=== PATIENT | female | born 1950 | race Caucasian/White ===

== ENCOUNTER 2016-10-06 11:10 | Day surgery (SDC) | payer MEDICAID ==
[2016-10-06] MEDS ORDERED: LACTATED RINGERS 1,000 ML IV ONE (11:45)
[2016-10-06] MEDS ORDERED: fentaNYL 100 MCG/2 ML VIAL IVP ONE (11:48)
[2016-10-06] MEDS ORDERED: MIDAZOLAM 2 MG/2 ML VIAL IVP ONE (11:48)
[2016-10-06 12:53] VITALS: BP 110/66
== END 2016-10-06 11:11 | disposition home or self-care (01) ==
LOC: SDS 11:10
PROVIDERS: ATTEND Surgery
PROC: 0DBL8ZX Excision of Transverse Colon, Via Natural or Artificial Opening Endoscopic, Diagnostic (ICD-10-PCS; 2016-10-06)
PROC: 0DBN8ZX Excision of Sigmoid Colon, Via Natural or Artificial Opening Endoscopic, Diagnostic (ICD-10-PCS; 2016-10-06)
PROC: 0DBP8ZX Excision of Rectum, Via Natural or Artificial Opening Endoscopic, Diagnostic (ICD-10-PCS; 2016-10-06)
PROC: 0DBH8ZX Excision of Cecum, Via Natural or Artificial Opening Endoscopic, Diagnostic (ICD-10-PCS; principal; 2016-10-06 12:15)
DX: R14.0 Abdominal distension (gaseous) (principal); R19.4 Change in bowel habit; K64.4 Residual hemorrhoidal skin tags; K57.30 Diverticulosis of large intestine without perforation or abscess without bleeding; K64.8 Other hemorrhoids; Z88.2 Allergy status to sulfonamides; J30.9 Allergic rhinitis, unspecified; F41.9 Anxiety disorder, unspecified; G89.29 Other chronic pain; I10 Essential (primary) hypertension; F17.210 Nicotine dependence, cigarettes, uncomplicated; Z90.49 Acquired absence of other specified parts of digestive tract
CPT/HCPCS: 45380; J7120; 88305

== ENCOUNTER 2017-05-15 09:09 | Emergency (ER) | payer MEDICAID, MEDICARE ==
[2017-05-15 09:41] LABS: BASOPHILS % (AUTO) 0.6 %; EOSINOPHILS # (AUTO) 0.1 10^3/uL (0.0-0.7); EOSINOPHILS % (AUTO) 1.8 %; HGB - HEMOGLOBIN 13.5 g/dL (12.0-16.0); LYMPHOCYTES # (AUTO) 2.1 10^3/uL (1.5-3.5); LYMPHOCYTES % (AUTO) 27.3 %; MEAN CORPUSCULAR HEMOGLOBIN 31.9 pg (27.0-31.0); MEAN CORPUSCULAR HGB CONC 32.9 g/dL (32.0-36.0); MEAN CORPUSCULAR VOLUME 96.9 fL (81.0-99.0); MEAN PLATELET VOLUME 7.5 fL (7.9-10.8); MONOCYTES # (AUTO) 0.5 10^3/uL (0.0-1.0); NEUTROPHILS # (AUTO) 4.8 10^3/uL (1.5-6.6); NEUTROPHILS % (AUTO) 63.3 %; PLT - PLATELET COUNT 260 10^3/uL (130-450); RED BLOOD COUNT 4.22 10^6/uL (4.20-5.40); RED CELL DISTRIBUTION WIDTH 13.4 % (12.0-15.0); WHITE BLOOD COUNT 7.6 x10^3/uL (4.8-10.8)
[2017-05-15 09:50] LABS: ALBUMIN 4.3 g/dL (3.2-5.5); ALBUMIN/GLOBULIN RATIO 1.1 (1.0-2.2); BILIRUBIN,TOTAL 0.5 mg/dL (0.2-1.0); CALCIUM 9.1 mg/dL (8.5-10.3); CREATININE 0.8 mg/dL (0.4-1.0); TOTAL PROTEIN 8.2 g/dL (6.7-8.2)
[2017-05-15] MEDS ORDERED: ACETAMINOPHEN 1,000 MG/100 ML 100 ML IV STA (09:55)
[2017-05-15] MEDS ORDERED: PROMETHAZINE INJ 25 MG in SODIUM CHLORIDE 0.9% 50 ML IV STA (09:56)
--- NOTE | 2017-05-15 09:59 | ED Physician Documentation ---
History of Present Illness - Stated complaint Stated Complaint: GI PX - Chief complaint Chief Complaint: Abd Pain - Additonal information Additional information: hx from pt 67 f pmhx fibromyalgia and psh CS X 2 and bowel resection 2/2 perf last colonoscopy < 1 yr ago showed diverticulosis to ER today with bruning mid abd pain and nausea, no diarrhea, no blood in BM, no urinary sx no fever chills also a frontal BUTT for about a week - no trauma, no vision hearing change, no numbness or weakness, no neck pain, no CO monitor in the house Review of Systems Constitutional: denies: Fever, Chills Eyes: denies: Loss of vision Ears: denies: Loss of hearing Cardiac: denies: Chest pain / pressure Respiratory: reports: Cough (minimal) GI: reports: Abdominal Pain. 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 HEENT: Tonsil/Adenoidectomy - Present Medications Home Medications: Ambulatory Orders Medication Instructions Recorded Confirmed Citalopram [CeleXA] 10 mg ORAL DAILY 03/04/16 05/15/17 Lorazepam [Ativan] 0.5 mg PO Q6-8H PRN 03/04/16 05/15/17 Propranolol [Inderal] 10 mg ORAL BID 03/04/16 05/15/17 Dicyclomine [Bentyl] 10 mg PO Q8H PRN #20 capsule 05/15/17 Hydrocodone/Acetaminophen 1 tab TID 05/15/17 05/15/17 [Hydrocodone-Acetamin 10-325 mg] raNITIdine [Zantac] 150 mg PO BID #60 tablet 05/15/17 - Allergies Allergies/Adverse Reactions: Allergies Allergy/AdvReac Type Severity Reaction Status Date / Time amoxicillin trihydrate * Allergy Intermediate Emesis, Verified 05/15/17 09:27 [From Augmentin] nausea erythromycin base Allergy Intermediate Emesis, Verified 05/15/17 09:27 [Erythromycin Base] nausea morphine Allergy Intermediate Hallucinati Verified 05/15/17 09:27 ons potassium clavulanate * Allergy Intermediate Emesis, Verified 05/15/17 09:27 [From Augmentin] nausea Sulfa (Sulfonamide Allergy Nausea Verified 05/15/17 09:27 Antibiotics) iodine AdvReac Severe Hives Verified 05/15/17 09:27 - Social History Does the pt smoke?: Yes Smoking Status: Current every day smoker Does the pt drink ETOH?: No Does the pt have substance abuse?: No - Immunizations Immunizations are current?: Yes - POLST Patient has POLST: No PD ED PE NORMAL - Vitals Vital signs reviewed: Yes - General General: Alert and oriented X 3 - HEENT HEENT: PERRL (globes soft no TA TTP EOMI) - Neck Neck: Supple, no meningeal sign - Cardiac Cardiac: RRR - Respiratory Respiratory: No respiratory distress, Clear bilaterally - Abdomen Abdomen: Normal bowel sounds, Soft, Other (diffuse TTP s peritioneal TTP) - Derm Derm: Normal color - Neuro Neuro: Alert and oriented X 3 Results - Vitals Vitals: Vital Signs - 24 hr 05/15/17 05/15/17 09:24 11:37 Temperature 36.5 C Heart Rate 84 66 Respiratory 16 18 Rate Blood Pressure 146/89 H 144/76 H O2 Saturation 97 95 Oxygen O2 Source Room air - Labs Labs: Laboratory Tests 05/15/17 05/15/17 05/15/17 09:33 09:33 10:18 WBC 7.6 RBC 4.22 Hgb 13.5 Hct 40.9 MCV 96.9 MCH 31.9 H MCHC 32.9 RDW 13.4 Plt Count 260 MPV 7.5 L Neut # 4.8 Lymph # 2.1 [place] # 0.5 Eos # 0.1 Baso # 0.0 Absolute Nucleated RBC 0.00 Nucleated RBC % 0.0 VBG Total Hgb VBG Oxyhemoglobin VBG Carboxyhemoglobin VBG Methemoglobin Sodium 136 Potassium 3.4 L Chloride 100 L Carbon Dioxide 29 Anion Gap 7.0 BUN 11 Creatinine 0.8 Estimated GFR (MDRD) 72 L Glucose 110 H Calcium 9.1 Total Bilirubin 0.5 AST 23 ALT 20 Alkaline Phosphatase 68 Total Protein 8.2 Albumin 4.3 Globulin 3.9 Albumin/Globulin Ratio 1.1 Lipase 13 L Urine Color YELLOW Urine Clarity CLEAR Urine pH 7.0 Ur Specific [place] 1.010 Urine Protein NEGATIVE Urine Glucose (UA) NEGATIVE Urine Ketones NEGATIVE Urine Occult Blood NEGATIVE Urine Nitrite NEGATIVE Urine Bilirubin NEGATIVE Urine Urobilinogen 0.2 (NORMAL) Ur Leukocyte Esterase NEGATIVE Ur Microscopic Review NOT INDICATED Urine Culture Comments NOT INDICATED 05/15/17 10:25 WBC RBC Hgb Hct MCV MCH MCHC RDW Plt Count MPV Neut # Lymph # [place] # Eos # Baso # Absolute Nucleated RBC Nucleated RBC % VBG Total Hgb 14.5 VBG Oxyhemoglobin 52 L VBG Carboxyhemoglobin 6.7 H VBG Methemoglobin 0.0 Sodium Potassium Chloride Carbon Dioxide Anion Gap BUN Creatinine Estimated GFR (MDRD) Glucose Calcium Total Bilirubin AST ALT Alkaline Phosphatase Total Protein Albumin Globulin Albumin/Globulin Ratio Lipase Urine Color Urine Clarity Urine pH Ur Specific [place] Urine Protein Urine Glucose (UA) Urine Ketones Urine Occult Blood Urine Nitrite Urine Bilirubin Urine Urobilinogen Ur Leukocyte Esterase Ur Microscopic Review Urine Culture Comments - Rads (name of study) CT AP Radiology: See rad report (diverticulosis no itis, no stones, no SBO) PD MEDICAL DECISION MAKING - ED course ED course: pt states pain not relieved with ofirmev not relieved with pepcid and bentyl I explained that all work up was neg and reassuring she states she can't leave until the pain is better and that the only medication she thinks will work is dilaudid I explained that i did not think dilaudid was the correct medication for this case offered toradol nurse states pt left Departure - Departure Disposition: 01 Home, Self Care Clinical Impression: Carbon monoxide exposure Abdominal pain Qualifiers: Abdominal location: generalized Qualified Code(s): R10.84 - Generalized abdominal pain Headache Qualifiers: Headache type: unspecified Headache chronicity pattern: acute headache Intractability: not intractable Qualified Code(s): R51 - Headache Condition: Good Instructions: ED Abdominal Pain Unkn Cause Follow-Up: Castro Haley MD [Primary Care Provider] - Prescriptions: Dicyclomine [Bentyl] 10 mg PO Q8H PRN #20 capsule PRN Reason: stomach cramps raNITIdine [Zantac] 150 mg PO BID #60 tablet Comments: Your carbon monoxide level is slightly elevated - no a dangerous level right now and you don't need to be admitted to the hospital - but it is possible you have carbon monoxide in your house that has been causing your recent headaches - you need to call the fire department and have them come to your house to test for carbon monoxide and you need to get a carbon monoxide sensor before it is safe for you to return home Your lab and CT scan were fine - no bowel perforation or blockage or internal bleeding today, no diverticulitis, no stones, no aneursym etc. I am not sure what is causing the pain for certain - it could be your fibromyalgia as you suspected - but given the reassuring work up I think it is safe for you to go home. I have prescribed some zantac and bentyl to see if that eases the pain Discharge Date/Time: 05/15/17 12:20
--- NOTE | 2017-05-15 10:20 | CT Report ---
EXAM: CT ABDOMEN AND PELVIS EXAM DATE: 05/15/2017 10:08 AM. CLINICAL HISTORY: Abd pain, hx divertic and resection 2/2 perf. COMPARISONS: 12/12/2015. 03/04/2016. TECHNIQUE: Routine helical CT imaging was performed through the abdomen and pelvis. IV contrast: None . Enteric contrast: No. Reconstructions: Coronal and sagittal. In accordance with CT protocol optimization, one or more of the following dose reduction techniques w ere utilized for this exam: automated exposure control, adjustment of mA and/or KV based on patient s ize, or use of iterative reconstructive technique. FINDINGS: Lung Bases: Lung bases are clear. Included portions of the heart are unremarkable. Liver: Unenhanced images of the liver are unremarkable. Gallbladder/Bile Ducts: Unremarkable. Spleen: Normal. Pancreas: Fatty replacement and parenchymal volume loss. No peripancreatic edema. Adrenal Glands: Normal. Kidneys: No nephrolithiasis. No hydronephrosis. No ureteral dilatation or ureteral calculi. Peritoneal Cavity/Bowel: Stomach is mildly distended and unremarkable. No small bowel obstruction. No free air. Tiny fatty umbilical hernia. Surgical clips are seen along the margins of the cecum and ri ght mid abdomen. Diverticuli are seen in the colon as before. No evidence for diverticulitis. No intr a-abdominal fluid collections. The appendix is not visualized. Pelvic Organs: Urinary bladder is unremarkable. No bladder calculi. No adnexal masses or no pelvic fr ee fluid. No pelvic adenopathy. Vasculature: No aneurysms or other significant abnormality. Bones: No acute osseous abnormalities. Grade 1 anterolisthesis of L4 on L5. Mild degenerative changes of the lumbar spine. Mild lumbar facet arthropathy. Other: None. IMPRESSION: 1. Colonic diverticulosis. No diverticulitis. No bowel obstruction. Postsurgical changes along the ri ght mid abdomen, unchanged. 2. No nephrolithiasis. No hydronephrosis. No bladder calculi. 3. Normal unenhanced appearance of the gallbladder. [facility] Referring Provider Line: [phone] SITE ID: [id number]
[2017-05-15 10:23] LABS: BILIRUBIN,URINE NEGATIVE (NEGATIVE); GLUCOSE, URINE (UA) NEGATIVE (NEGATIVE); KETONES,URINE (UA) NEGATIVE (NEGATIVE); LEUKOCYTE ESTERASE, URINE NEGATIVE (NEGATIVE); NITRITE,URINE NEGATIVE (NEGATIVE); OCCULT BLOOD,URINE NEGATIVE (NEGATIVE); PROTEIN,URINE NEGATIVE (NEGATIVE); UROBILINOGEN,URINE 0.2 (NORMAL) E.U./dL (NORMAL)
[2017-05-15 10:25] LABS: CLARITY,URINE CLEAR (CLEAR)
[2017-05-15] MEDS: POTASSIUM CHLORIDE 20 MEQ TABLET PO STA ×2 (11:05→11:14)
[2017-05-15] MEDS ORDERED: DICYCLOMINE 10 MG CAPSULE PO STA (11:08)
[2017-05-15] MEDS ORDERED: FAMOTIDINE 20 MG/50 ML 50 ML IV ONE (11:08)
[2017-05-15 11:40] VITALS: BP 144/76
[2017-05-15] MEDS ORDERED: KETOROLAC 60 MG/2 ML VIAL IVP STA (12:17)
== END 2017-05-15 12:20 | disposition home or self-care (01) ==
LOC: ED 09:09
DX: T58.91XA Toxic effect of carbon monoxide from unspecified source, accidental (unintentional), initial encounter (principal); Y92.019 Unspecified place in single-family (private) house as the place of occurrence of the external cause; R10.84 Generalized abdominal pain; R51 Headache; M79.7 Fibromyalgia; I10 Essential (primary) hypertension; Z90.49 Acquired absence of other specified parts of digestive tract; F17.200 Nicotine dependence, unspecified, uncomplicated
CPT/HCPCS: 36415; 74176; 80053; 81003; 82375; 83690; 85025; 96365; 96367; 96368; 99283; A9270; J0131; J7040; 81001; 87086

== ENCOUNTER 2017-08-11 08:00 | Outpatient (CLI) | payer MEDICARE, OTHER | END 2017-08-11 08:01 | disposition home or self-care (01) | LOC: LAB.R 08:00 | PROVIDERS: ATTEND Family Medicine | DX: R30.0 Dysuria (principal) | CPT/HCPCS: 87086 ==

== ENCOUNTER 2017-11-07 16:34 | Emergency (ER) | payer MEDICARE, OTHER ==
--- NOTE | 2017-11-07 18:40 | ED Physician Documentation ---
PD HPI FEMALE - Stated complaint Stated Complaint: FEMALE - Chief complaint Chief Complaint: UTI - History obtained from History obtained from: Patient - History of Present Illness Timing - onset: Today Timing - duration: Days (1) Timing - details: Abrupt onset, Still present Associated symptoms: Back pain, Dysuria, Urinary frequency. No: Fever, Vaginal discharge, Genital sore/lesion Similar symptoms before: Diagnosis (UTIs) Recently seen: Not recently seen Review of Systems Constitutional: denies: Fever, Chills Nose: denies: Rhinorrhea / runny nose, Congestion Throat: denies: Sore throat Cardiac: denies: Chest pain / pressure, Palpitations Respiratory: denies: Dyspnea, Cough GI: reports: Nausea. denies: Abdominal Pain, Abdominal Swelling, Vomiting : reports: Dysuria, Frequency, Hematuria. 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 HEENT: Tonsil/Adenoidectomy - Present Medications Home Medications: Ambulatory Orders Medication Instructions Recorded Confirmed Citalopram [CeleXA] 10 mg ORAL DAILY 03/04/16 05/15/17 Lorazepam [Ativan] 0.5 mg PO Q6-8H PRN 03/04/16 05/15/17 Propranolol [Inderal] 10 mg ORAL BID 03/04/16 05/15/17 Dicyclomine [Bentyl] 10 mg PO Q8H PRN #20 capsule 05/15/17 Hydrocodone/Acetaminophen 1 tab TID 05/15/17 05/15/17 [Hydrocodone-Acetamin 10-325 mg] raNITIdine [Zantac] 150 mg PO BID #60 tablet 05/15/17 Doxycycline Monohydrate 100 mg PO BID #14 tablet 11/07/17 HYDROcod/ACETAM 5/325 [Lasara 5/325] 1 tab PO Q6H PRN #15 tablet 11/07/17 Naproxen 375 mg PO BID #20 tablet 11/07/17 Phenazopyridine HCl 200 mg PO TID PRN #10 tablet 11/07/17 Amitriptyline [Elavil] 10 mg PO HS #10 tablet 11/09/17 oxyCODONE [Roxicodone] 5 mg PO Q4-6H PRN #20 tablet 11/09/17 - Allergies Allergies/Adverse Reactions: Allergies Allergy/AdvReac Type Severity Reaction Status Date / Time amoxicillin trihydrate * Allergy Intermediate Emesis, Verified 11/09/17 17:45 [From Augmentin] nausea erythromycin base Allergy Intermediate Emesis, Verified 11/09/17 17:45 [Erythromycin Base] nausea morphine Allergy Intermediate Hallucinati Verified 11/09/17 17:45 ons potassium clavulanate * Allergy Intermediate Emesis, Verified 11/09/17 17:45 [From Augmentin] nausea Sulfa (Sulfonamide Allergy Nausea Verified 11/09/17 17:45 Antibiotics) iodine AdvReac Severe Hives Verified 11/09/17 17:45 - Social History Does the pt smoke?: Yes Smoking Status: Current every day smoker Does the pt drink ETOH?: No Does the pt have substance abuse?: No - Immunizations Immunizations are current?: Yes - POLST Patient has POLST: No PD ED PE NORMAL - Vitals Vital signs reviewed: Yes - General General: Alert and oriented X 3, No acute distress, Well developed/nourished - HEENT HEENT: Ears normal, Pharynx benign - Neck Neck: Supple, no meningeal sign, No adenopathy - Cardiac Cardiac: RRR, No murmur - Respiratory Respiratory: Clear bilaterally - Abdomen Abdomen: Normal bowel sounds, Soft, Non tender, Non distended, No organomegaly - Female Female : Deferred - Rectal Rectal: Deferred Results - Vitals Vitals: Oxygen O2 Source Room air - Labs Labs: Laboratory Tests 11/07/17 18:38 Urine Color YELLOW Urine Clarity CLOUDY Urine pH 8.0 H Ur Specific [place] 1.020 Urine Protein NEGATIVE Urine Glucose (UA) NEGATIVE Urine Ketones NEGATIVE Urine Occult Blood NEGATIVE Urine Nitrite NEGATIVE Urine Bilirubin NEGATIVE Urine Urobilinogen 0.2 (NORMAL) Ur Leukocyte Esterase NEGATIVE Urine RBC 0-5 Urine WBC 11-25 H Ur Squamous Epith Cells MANY Squamous H Amorphous Sediment Marked Urine Bacteria Moderate H Ur Microscopic Review INDICATED Urine Culture Comments NOT INDICATED PD MEDICAL DECISION MAKING - ED course Complexity details: reviewed results (UA is marginally positive for UTI, yet her syptoms are very c/w UTI. She does not really want vaginal exam.), considered differential, d/w patient - Sepsis Event Vital Signs: Oxygen O2 Source Room air Departure - Departure Disposition: 01 Home, Self Care Clinical Impression: Dysuria, Cystitis Condition: Stable Record reviewed to determine appropriate education?: Yes Instructions: ED UTI Cystitis Female Follow-Up: Castro Haley MD [Primary Care Provider] - Prescriptions: Doxycycline Monohydrate 100 mg PO BID #14 tablet HYDROcod/ACETAM 5/325 [Lasara 5/325] 1 tab PO Q6H PRN #15 tablet PRN Reason: Pain Naproxen 375 mg PO BID #20 tablet Phenazopyridine HCl 200 mg PO TID PRN #10 tablet PRN Reason: Pain Comments: Your urine test does look like a an infection. We will treated with an antibiotic doxycycline. We will also use an anti-inflammatory naproxen twice daily. Use the phenazopyridine 3-4 times a day as well. Add Tylenol or hydrocodone if needed for pain. This should improve over the next few days. Your bladder scanner showed minimal urine in the bladder so you are not in retention but having to go often because of the irritation. Discharge Date/Time: 11/07/17 19:50
[2017-11-07 18:47] LABS: BILIRUBIN,URINE NEGATIVE (NEGATIVE); GLUCOSE, URINE (UA) NEGATIVE (NEGATIVE); KETONES,URINE (UA) NEGATIVE (NEGATIVE); LEUKOCYTE ESTERASE, URINE NEGATIVE (NEGATIVE); NITRITE,URINE NEGATIVE (NEGATIVE); OCCULT BLOOD,URINE NEGATIVE (NEGATIVE); PROTEIN,URINE NEGATIVE (NEGATIVE); UROBILINOGEN,URINE 0.2 (NORMAL) E.U./dL (NORMAL)
[2017-11-07 18:51] LABS: CLARITY,URINE CLOUDY (CLEAR)
[2017-11-07] MEDS ORDERED: PHENAZOPYRIDINE 100 MG TABLET PO STA (18:58)
[2017-11-07] MEDS ORDERED: HYDROcod/ACETAM 5/325 MG TABLET PO STA (18:58)
[2017-11-07] MEDS ORDERED: KETOROLAC 30 MG/ML VIAL IM STA (18:58)
[2017-11-07 19:11] LABS: AMORPHOUS SEDIMENT,UR Marked /LPF; BACTERIA,URINE Moderate /HPF (None Seen); RBC,URINE 0-5 /HPF (0-5); SQUAMOUS EPITHELIAL CELL,UR MANY Squamous (<= Few)
[2017-11-07] MEDS ORDERED: IBUPROFEN 600 MG TABLET PO STA (19:20)
[2017-11-07] MEDS ORDERED: DEXAMETHASONE 10 MG/ML VIAL PO STA (19:20)
[2017-11-07] MEDS ORDERED: DOXYCYCLINE 100 MG TABLET PO STA (19:23)
[2017-11-07 19:41] VITALS: BP 143/92
== END 2017-11-07 19:50 | disposition home or self-care (01) ==
LOC: ED 16:34
DX: N30.00 Acute cystitis without hematuria (principal); I10 Essential (primary) hypertension; M79.7 Fibromyalgia; F17.200 Nicotine dependence, unspecified, uncomplicated
CPT/HCPCS: 81001; 99283; A9270; 81003; 87086

== ENCOUNTER 2017-11-09 17:33 | Emergency (ER) | payer MEDICARE, OTHER ==
[2017-11-09 17:45] VITALS: BP 167/110
[2017-11-09] MEDS ORDERED: HYDROmorphone 2 MG/ML VIAL IVP STA ×2 (18:00→19:49)
--- NOTE | 2017-11-09 18:04 | ED Physician Documentation ---
PD HPI ABD PAIN - Stated complaint Stated Complaint: FEMALE - Chief complaint Chief Complaint: Abd Pain - History obtained from History obtained from: Patient - History of Present Illness Timing - onset: Other (She developed urinary frequency and incontinence and suprapubic pain about a month ago I think. Dr. Haley put her on Pyridium which helped a lot and a course of antibiotics. There is no culture data on the chart. She felt much better on the Pyridium but then it relapsed after the cessation of medications and she was here couple of days ago. She had an infected appearing urinalysis but there were squamous cells it was not cultured. She was placed on hydrocodone, Pyridium, and doxycycline noting her multiple medication allergies. She continues to have severe suprapubic pain, frequency and occasional incontinence without gross hematuria. The pain does not radiate. She denies any changes in her bowel movements,) Review of Systems Constitutional: denies: Fever, Chills GI: reports: Abdominal Pain, Nausea. denies: Vomiting, Constipation, Diarrhea : reports: Frequency, Incontinent. 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 HEENT: Tonsil/Adenoidectomy - Present Medications Home Medications: Ambulatory Orders Medication Instructions Recorded Confirmed Citalopram [CeleXA] 10 mg ORAL DAILY 03/04/16 05/15/17 Lorazepam [Ativan] 0.5 mg PO Q6-8H PRN 03/04/16 05/15/17 Propranolol [Inderal] 10 mg ORAL BID 03/04/16 05/15/17 Dicyclomine [Bentyl] 10 mg PO Q8H PRN #20 capsule 05/15/17 Hydrocodone/Acetaminophen 1 tab TID 05/15/17 05/15/17 [Hydrocodone-Acetamin 10-325 mg] raNITIdine [Zantac] 150 mg PO BID #60 tablet 05/15/17 Doxycycline Monohydrate 100 mg PO BID #14 tablet 11/07/17 HYDROcod/ACETAM 5/325 [[place] 5/325] 1 tab PO Q6H PRN #15 tablet 11/07/17 Naproxen 375 mg PO BID #20 tablet 11/07/17 Phenazopyridine HCl 200 mg PO TID PRN #10 tablet 11/07/17 Amitriptyline [Elavil] 10 mg PO HS #10 tablet 11/09/17 oxyCODONE [Roxicodone] 5 mg PO Q4-6H PRN #20 tablet 11/09/17 - Allergies Allergies/Adverse Reactions: Allergies Allergy/AdvReac Type Severity Reaction Status Date / Time amoxicillin trihydrate * Allergy Intermediate Emesis, Verified 11/09/17 17:45 [From Augmentin] nausea erythromycin base Allergy Intermediate Emesis, Verified 11/09/17 17:45 [Erythromycin Base] nausea morphine Allergy Intermediate Hallucinati Verified 11/09/17 17:45 ons potassium clavulanate * Allergy Intermediate Emesis, Verified 11/09/17 17:45 [From Augmentin] nausea Sulfa (Sulfonamide Allergy Nausea Verified 11/09/17 17:45 Antibiotics) iodine AdvReac Severe Hives Verified 11/09/17 17:45 - Social History Does the pt smoke?: Yes Smoking Status: Current every day smoker Does the pt drink ETOH?: No Does the pt have substance abuse?: No - Immunizations Immunizations are current?: Yes - POLST Patient has POLST: No PD ED PE NORMAL - Vitals Vital signs reviewed: Yes - General General: Alert and oriented X 3, No acute distress - Abdomen Abdomen: Normal bowel sounds, Soft, Non tender - Back Back: No CVA TTP, No spinal TTP - Neuro Neuro: Alert and oriented X 3, Normal speech Results - Vitals Vitals: Vital Signs - 24 hr 11/09/17 17:39 Temperature 35.8 C L Heart Rate 110 H Respiratory 20 Rate Blood Pressure 167/110 H O2 Saturation 94 Oxygen O2 Source Room air - Labs Labs: Laboratory Tests 11/09/17 11/09/17 11/09/17 17:49 18:40 18:40 WBC 10.8 RBC 4.31 Hgb 13.8 Hct 41.8 MCV 96.9 MCH 32.1 H MCHC 33.2 RDW 14.3 Plt Count 306 MPV 7.4 L Neut # (Auto) 7.3 H Lymph # (Auto) 2.6 [place] # (Auto) 0.8 Eos # (Auto) 0.1 Baso # (Auto) 0.1 Absolute Nucleated RBC 0.00 Nucleated RBC % 0.0 Sodium 137 Potassium 3.7 Chloride 99 L Carbon Dioxide 31 Anion Gap 7.0 BUN 14 Creatinine 0.8 Estimated GFR (MDRD) 72 L Glucose 110 H Calcium 9.4 Total Bilirubin 0.5 AST 26 ALT 27 Alkaline Phosphatase 76 Total Protein 7.8 Albumin 4.1 Globulin 3.7 Albumin/Globulin Ratio 1.1 Lipase 17 L Urine Color ORANGE Urine Clarity HAZY Urine pH 7.0 Ur Specific [place] 1.015 Urine Protein Urine Glucose (UA) 250 H Urine Ketones TRACE Urine Occult Blood NEGATIVE Urine Nitrite POSITIVE H Urine Bilirubin NEGATIVE Urine Urobilinogen Ur Leukocyte Esterase SMALL H Urine RBC 0-5 Urine WBC 4-5 Ur Squamous Epith Cells MANY Squamous H Urine Bacteria Many H Urine Mucus Few Strands Ur Microscopic Review INDICATED Urine Culture Comments NOT INDICATED 11/09/17 18:50 WBC RBC Hgb Hct MCV MCH MCHC RDW Plt Count MPV Neut # (Auto) Lymph # (Auto) [place] # (Auto) Eos # (Auto) Baso # (Auto) Absolute Nucleated RBC Nucleated RBC % Sodium Potassium Chloride Carbon Dioxide Anion Gap BUN Creatinine Estimated GFR (MDRD) Glucose Calcium Total Bilirubin AST ALT Alkaline Phosphatase Total Protein Albumin Globulin Albumin/Globulin Ratio Lipase Urine Color ORANGE Urine Clarity CLEAR Urine pH 7.0 Ur Specific [place] 1.015 Urine Protein Urine Glucose (UA) Urine Ketones NEGATIVE Urine Occult Blood NEGATIVE Urine Nitrite Urine Bilirubin NEGATIVE Urine Urobilinogen Ur Leukocyte Esterase NEGATIVE Urine RBC None Seen Urine WBC 0-3 Ur Squamous Epith Cells MOD Squamous H Urine Bacteria Few Urine Mucus Ur Microscopic Review NOT INDICATED Urine Culture Comments NOT INDICATED PD MEDICAL DECISION MAKING - ED course ED course: She presents with persistent suprapubic pain and frequency in the setting of potential bladder infection treated with doxycycline a few days ago, because of squamous cells no culture data is available. We discussed potentially a CT scan to evaluate further issues since she has failed outpatient treatment. She refused based on cost. Given the fact though that she had previous significant relief with Pyridium this would strongly suggest a bladder issue. The urinalysis was repeated given the squamous cells in the initial sample and so had evidence of infection, but let much less so and without white cells in the a few bacteriuria I think this probably is not consistent with cystitis or at least is resolving cystitis I would not change her antibiotics based on that. Given her underlying history of fibromyalgia, interstitial cystitis is also considered and she was advised to seek a referral for urology from her primary care physician. - Sepsis Event Vital Signs: Vital Signs - 24 hr 11/09/17 17:39 Temperature 35.8 C L Heart Rate 110 H Respiratory 20 Rate Blood Pressure 167/110 H O2 Saturation 94 Oxygen O2 Source Room air Departure - Departure Disposition: Home, Self Care Clinical Impression: Suprapubic abdominal burning sensation Condition: Good Record reviewed to determine appropriate education?: Yes Instructions: ED Abdominal Pain Unkn Cause Prescriptions: Amitriptyline [Elavil] 10 mg PO HS #10 tablet oxyCODONE [Roxicodone] 5 mg PO Q4-6H PRN #20 tablet PRN Reason: Pain Comments: Follow-up with Dr. Haley on Monday as scheduled. Return if worsening in the interim. Discuss a urology referral with Dr. Haley for potential cystoscopy.
[2017-11-09 18:11] LABS: BILIRUBIN,URINE NEGATIVE (NEGATIVE); GLUCOSE, URINE (UA) 250 mg/dL (NEGATIVE); KETONES,URINE (UA) TRACE mg/dL (NEGATIVE); LEUKOCYTE ESTERASE, URINE SMALL (NEGATIVE); NITRITE,URINE POSITIVE (NEGATIVE); OCCULT BLOOD,URINE NEGATIVE (NEGATIVE)
[2017-11-09 18:29] LABS: CLARITY,URINE HAZY (CLEAR)
[2017-11-09 18:32] LABS: BACTERIA,URINE Many /HPF (None Seen); MUCUS,URINE Few Strands; RBC,URINE 0-5 /HPF (0-5); SQUAMOUS EPITHELIAL CELL,UR MANY Squamous (<= Few)
[2017-11-09 18:58] LABS: BASOPHILS # (AUTO) 0.1 10^3/uL (0.0-0.1); BASOPHILS % (AUTO) 0.6 %; EOSINOPHILS # (AUTO) 0.1 10^3/uL (0.0-0.7); EOSINOPHILS % (AUTO) 0.5 %; HGB - HEMOGLOBIN 13.8 g/dL (12.0-16.0); LYMPHOCYTES # (AUTO) 2.6 10^3/uL (1.5-3.5); LYMPHOCYTES % (AUTO) 24.1 %; MEAN CORPUSCULAR HEMOGLOBIN 32.1 pg (27.0-31.0); MEAN CORPUSCULAR HGB CONC 33.2 g/dL (32.0-36.0); MEAN CORPUSCULAR VOLUME 96.9 fL (81.0-99.0); MEAN PLATELET VOLUME 7.4 fL (7.9-10.8); MONOCYTES # (AUTO) 0.8 10^3/uL (0.0-1.0); NEUTROPHILS # (AUTO) 7.3 10^3/uL (1.5-6.6); NEUTROPHILS % (AUTO) 67.8 %; PLT - PLATELET COUNT 306 10^3/uL (130-450); RED BLOOD COUNT 4.31 10^6/uL (4.20-5.40); RED CELL DISTRIBUTION WIDTH 14.3 % (12.0-15.0); WHITE BLOOD COUNT 10.8 x10^3/uL (4.8-10.8)
[2017-11-09 19:04] LABS: BILIRUBIN,URINE NEGATIVE (NEGATIVE); LEUKOCYTE ESTERASE, URINE NEGATIVE (NEGATIVE); OCCULT BLOOD,URINE NEGATIVE (NEGATIVE)
[2017-11-09 19:06] LABS: ALBUMIN 4.1 g/dL (3.2-5.5); ALBUMIN/GLOBULIN RATIO 1.1 (1.0-2.2); BILIRUBIN,TOTAL 0.5 mg/dL (0.2-1.0); CALCIUM 9.4 mg/dL (8.5-10.3); CREATININE 0.8 mg/dL (0.4-1.0); TOTAL PROTEIN 7.8 g/dL (6.7-8.2)
[2017-11-09 19:29] LABS: CLARITY,URINE CLEAR (CLEAR); KETONES,URINE (UA) NEGATIVE (NEGATIVE)
[2017-11-09 19:33] LABS: BACTERIA,URINE Few /HPF (None Seen); RBC,URINE None Seen /HPF (0-5); SQUAMOUS EPITHELIAL CELL,UR MOD Squamous (<= Few)
[2017-11-09] MEDS ORDERED: oxyCODONE/ACET 5/325 Prepack 4 PO STA (19:49)
== END 2017-11-09 20:12 | disposition home or self-care (01) ==
LOC: ED 17:33
DX: R10.33 Periumbilical pain (principal); I10 Essential (primary) hypertension; M79.7 Fibromyalgia; F17.200 Nicotine dependence, unspecified, uncomplicated
CPT/HCPCS: 36415; 80053; 81001; 81003; 83690; 85025; 96374; 96376; 99283; 99284; J1170; 87086

== ENCOUNTER 2017-11-11 11:11 | Emergency (ER) | payer MEDICARE, OTHER ==
--- NOTE | 2017-11-11 11:50 | ED Physician Documentation ---
PD HPI FEMALE - Stated complaint Stated Complaint: FEMALE - Chief complaint Chief Complaint: UTI - History obtained from History obtained from: Patient, Family - History of Present Illness Timing - onset: Chronic Timing - duration: Months Timing - details: Constant Pain level max: 8 Pain level max: 8 Associated symptoms: Abdominal pain (suprapubic abd pain). No: Fever, Chest/ shoulder pain, Back pain, Vaginal pain, Vaginal bleeding, Vaginal discharge, Dysuria, Urinary frequency Similar symptoms before: Diagnosis (UTI) - Additional information Additional information: Patient is a 67-year-old female who presents to the emergency department with lower abdominal pain for the past several months. Has been treated for UTI but symptoms are not resolving. She states she feels like Pyridium helped slightly. She was placed on oxycodone a few days ago, but the pain is still present. Denies any fevers. No vaginal bleeding or discharge. Is not sexually active. Has not had a pelvic exam. No diarrhea. No constipation Review of Systems Ten Systems: 10 systems reviewed and negative Constitutional: denies: Fever, Chills Throat: denies: Sore throat Cardiac: denies: Chest pain / pressure Respiratory: denies: Cough GI: denies: Nausea, Vomiting, Constipation, Diarrhea, Hematemesis Skin: denies: Rash Musculoskeletal: denies: Neck pain, Back pain Neurologic: denies: Headache PD PAST MEDICAL HISTORY - Past Medical History Past Medical History: Yes Cardiovascular: None, Hypertension Respiratory: None Endocrine/Autoimmune: None GI: Chronic diarrhea : None HEENT: None Psych: Anxiety Musculoskeletal: Fibromyalgia, Chronic back pain Derm: None - Past Surgical History Past Surgical History: Yes General: Bowel surgery, 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 HEENT: Tonsil/Adenoidectomy - Present Medications Home Medications: Ambulatory Orders Medication Instructions Recorded Confirmed Citalopram [CeleXA] 10 mg ORAL DAILY 03/04/16 05/15/17 Lorazepam [Ativan] 0.5 mg PO Q6-8H PRN 03/04/16 05/15/17 Propranolol [Inderal] 10 mg ORAL BID 03/04/16 05/15/17 Dicyclomine [Bentyl] 10 mg PO Q8H PRN #20 capsule 05/15/17 Hydrocodone/Acetaminophen 1 tab TID 05/15/17 05/15/17 [Hydrocodone-Acetamin 10-325 mg] raNITIdine [Zantac] 150 mg PO BID #60 tablet 05/15/17 Doxycycline Monohydrate 100 mg PO BID #14 tablet 11/07/17 HYDROcod/ACETAM 5/325 [[place] 5/325] 1 tab PO Q6H PRN #15 tablet 11/07/17 Naproxen 375 mg PO BID #20 tablet 11/07/17 Phenazopyridine HCl 200 mg PO TID PRN #10 tablet 11/07/17 Amitriptyline [Elavil] 10 mg PO HS #10 tablet 11/09/17 oxyCODONE [Roxicodone] 5 mg PO Q4-6H PRN #20 tablet 11/09/17 Metronidazole [Flagyl] 500 mg PO BID #20 tablet 11/11/17 Oxycodone HCl/Acetaminophen 1 - 2 each PO Q6H PRN #10 tablet 11/11/17 [Percocet 5-325 mg Tablet] - Allergies Allergies/Adverse Reactions: Allergies Allergy/AdvReac Type Severity Reaction Status Date / Time amoxicillin trihydrate * Allergy Intermediate Emesis, Verified 11/09/17 17:45 [From Augmentin] nausea erythromycin base Allergy Intermediate Emesis, Verified 11/09/17 17:45 [Erythromycin Base] nausea morphine Allergy Intermediate Hallucinati Verified 11/09/17 17:45 ons potassium clavulanate * Allergy Intermediate Emesis, Verified 11/09/17 17:45 [From Augmentin] nausea Sulfa (Sulfonamide Allergy Nausea Verified 11/09/17 17:45 Antibiotics) iodine AdvReac Severe Hives Verified 11/09/17 17:45 - Social History Does the pt smoke?: Yes Smoking Status: Current every day smoker Does the pt drink ETOH?: No Does the pt have substance abuse?: No - Immunizations Immunizations are current?: Yes - POLST Patient has POLST: No PD ED PE NORMAL - Vitals Vital signs reviewed: Yes - General General: Alert and oriented X 3 - HEENT HEENT: Moist mucous membranes - Neck Neck: Supple, no meningeal sign - Cardiac Cardiac: RRR, Strong equal pulses - Respiratory Respiratory: No respiratory distress, Clear bilaterally - Abdomen Abdomen: Soft, Non tender, Non distended - Female Female : [employer] present ([employer] student), Other (Moderate white vaginal discharge. Thick. Erythema and irritation to the vaginal engel present. Tenderness to palpation. No adnexal masses) - Back Back: No CVA TTP, No spinal TTP - Derm Derm: Warm and dry - Neuro Neuro: Alert and oriented X 3 - Psych Psych: Normal mood, Normal affect Results - Vitals Vitals: Vital Signs - 24 hr 11/11/17 11/11/17 11:13 13:55 Temperature 36.2 C L 36.3 C L Heart Rate 90 89 Respiratory 17 18 Rate Blood Pressure 203/84 H 159/87 H O2 Saturation 96 95 Oxygen O2 Source Room air - Labs Labs: Microbiology 11/11/17 13:07 YOAV Preparation - Final Other - Vaginal 11/11/17 13:07 Wet Prep - Final Vaginal PD MEDICAL DECISION MAKING - ED course Complexity details: considered differential, d/w patient ED course: Patient is a 67-year-old female who presents to the emergency department with. After discussion she agreed to a pelvic examination. She has had a recent blood work, so this was not repeated today. Pelvic examination reveals bacterial vaginitis. Will place on Flagyl and have her follow-up closely with her doctor. She is well-appearing, nontoxic. Afebrile. Patient counseled regarding signs and symptoms for which I believe and urgent re-evaluation would be necessary. Patient with good understanding of and agreement to plan and is comfortable going home at this time This document was made in part using voice recognition software. While efforts are made to proofread this document, sound alike and grammatical errors may occur. - Sepsis Event Vital Signs: Vital Signs - 24 hr 11/11/17 11/11/17 11:13 13:55 Temperature 36.2 C L 36.3 C L Heart Rate 90 89 Respiratory 17 18 Rate Blood Pressure 203/84 H 159/87 H O2 Saturation 96 95 Oxygen O2 Source Room air Departure - Departure Disposition: 01 Home, Self Care Clinical Impression: Bacterial vaginitis Condition: Good Instructions: ED Vaginosis Bacterial Follow-Up: Castro Haley MD [Primary Care Provider] - Within 1 week Prescriptions: Metronidazole [Flagyl] 500 mg PO BID #20 tablet Oxycodone HCl/Acetaminophen [Percocet 5-325 mg Tablet] 1 - 2 each PO Q6H PRN # 10 tablet PRN Reason: pain Comments: Return if you worsen. Take all the flagyl until gone. This should improve over the next few days. Do not drink alcohol or drive while on narcotic pain medicine. Note that many narcotic pain relievers also contain tylenol/acetaminophen. Please ensure that your total dose of acetaminophen from all sources does not exceed 3 grams (3000mg) per day. You may constipated on this medication, take a stool softener such as "Colace" twice a day while you are on it. Also recommend a [id number] laxative such as senna or MiraLAX any day that you do not have a bowel movement. If you received narcotic pain medication in the emergency department, do not drive or operate machinery for the next 24 hours. Discharge Date/Time: 11/11/17 13:56
[2017-11-11] MEDS ORDERED: HYOSCYAMINE SL 0.125 MG TABLET SL STA (13:08)
[2017-11-11] MEDS ORDERED: oxyCOD/ACETAMIN 5 MG/325 MG TABLET PO STA (13:08)
[2017-11-11] MEDS ORDERED: metroNIDAZOLE 250 MG TABLET PO STA (13:31)
[2017-11-11 13:56] VITALS: BP 159/87
== END 2017-11-11 13:56 | disposition home or self-care (01) ==
LOC: ED 11:11
DX: N76.0 Acute vaginitis (principal); B96.89 Other specified bacterial agents as the cause of diseases classified elsewhere; F17.200 Nicotine dependence, unspecified, uncomplicated
CPT/HCPCS: 87210; 87220; 99283; A9270

== ENCOUNTER 2017-11-12 14:07 | Emergency (ER) | payer MEDICARE, OTHER ==
[2017-11-12] MEDS ORDERED: SUCRALFATE 1 GM/10 ML UDC PO STA (16:57)
[2017-11-12] MEDS ORDERED: HYOSCYAMINE SL 0.125 MG TABLET SL STA ×2 (16:57→17:42)
[2017-11-12] MEDS ORDERED: PHENobarb/HYOSCY/ATROPINE/SCOP 5 ML UDC PO STA (16:57)
--- NOTE | 2017-11-12 16:59 | ED Physician Documentation ---
PD HPI ABD PAIN - Stated complaint Stated Complaint: FEMALE - Chief complaint Chief Complaint: Abd Pain - History obtained from History obtained from: Patient, Family - History of Present Illness Timing - onset: How many months ago (5) Timing - duration: Months (5) Timing - details: Gradual onset Pain level max: 9 Pain level now: 9 Quality: Aching, Pain Location: All over / everywhere Radiation: Other (non-radiating) Improved by: Other (states percocet is not helping.) Worsened by: Eating Associated symptoms: No: Fever, Nausea, Vomiting, Hematemesis, Diarrhea, Constipation, Melena, Hematochezia, Dysuria - Additional information Additional information: Patient has been seen here several times for same. Most recently yesterday when she was diagnosed with bacterial vaginitis. States that she has more burning pain in her abdomen today. Review of Systems Constitutional: denies: Fever, Chills Ears: denies: Ear pain Nose: denies: Rhinorrhea / runny nose, Congestion Throat: denies: Sore throat Cardiac: denies: Chest pain / pressure Respiratory: denies: Cough GI: denies: Vomiting, Hematemesis, Bloody / black stool : denies: Dysuria Skin: denies: Rash Musculoskeletal: denies: Neck pain, Back pain Neurologic: denies: Headache PD PAST MEDICAL HISTORY - Past Medical History Cardiovascular: None, Hypertension Respiratory: None Endocrine/Autoimmune: None GI: Chronic diarrhea : None HEENT: None Psych: Anxiety Musculoskeletal: Fibromyalgia, Chronic back pain Derm: None - Past Surgical History Past Surgical History: Yes General: Bowel surgery, 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 HEENT: Tonsil/Adenoidectomy - Present Medications Home Medications: Ambulatory Orders Medication Instructions Recorded Confirmed Citalopram [CeleXA] 10 mg ORAL DAILY 03/04/16 05/15/17 Lorazepam [Ativan] 0.5 mg PO Q6-8H PRN 03/04/16 05/15/17 Propranolol [Inderal] 10 mg ORAL BID 03/04/16 05/15/17 Dicyclomine [Bentyl] 10 mg PO Q8H PRN #20 capsule 05/15/17 Hydrocodone/Acetaminophen 1 tab TID 05/15/17 05/15/17 [Hydrocodone-Acetamin 10-325 mg] raNITIdine [Zantac] 150 mg PO BID #60 tablet 05/15/17 Doxycycline Monohydrate 100 mg PO BID #14 tablet 11/07/17 HYDROcod/ACETAM 5/325 [[place] 5/325] 1 tab PO Q6H PRN #15 tablet 11/07/17 Naproxen 375 mg PO BID #20 tablet 11/07/17 Phenazopyridine HCl 200 mg PO TID PRN #10 tablet 11/07/17 Amitriptyline [Elavil] 10 mg PO HS #10 tablet 11/09/17 oxyCODONE [Roxicodone] 5 mg PO Q4-6H PRN #20 tablet 11/09/17 Metronidazole [Flagyl] 500 mg PO BID #20 tablet 11/11/17 Oxycodone HCl/Acetaminophen 1 - 2 each PO Q6H PRN #10 tablet 11/11/17 [Percocet 5-325 mg Tablet] Hyoscyamine Sulfate [Levsin-Sl] 0.125 mg SL Q4H PRN #30 tab.subl 11/12/17 Phenobarb/Hyoscy/Atropine/Scop 5 ml PO Q6HR PRN #60 ml 11/12/17 [ Elixir] Sucralfate [Carafate] 1 gm PO ACHS #60 tablet 11/12/17 - Allergies Allergies/Adverse Reactions: Allergies Allergy/AdvReac Type Severity Reaction Status Date / Time amoxicillin trihydrate * Allergy Intermediate Emesis, Verified 11/09/17 17:45 [From Augmentin] nausea erythromycin base Allergy Intermediate Emesis, Verified 11/09/17 17:45 [Erythromycin Base] nausea morphine Allergy Intermediate Hallucinati Verified 11/09/17 17:45 ons potassium clavulanate * Allergy Intermediate Emesis, Verified 11/09/17 17:45 [From Augmentin] nausea Sulfa (Sulfonamide Allergy Nausea Verified 11/09/17 17:45 Antibiotics) iodine AdvReac Severe Hives Verified 11/12/17 14:23 - Social History Does the pt smoke?: Yes Smoking Status: Current every day smoker Does the pt drink ETOH?: No Does the pt have substance abuse?: No - Immunizations Immunizations are current?: Yes - POLST Patient has POLST: No PD ED PE NORMAL - Vitals Vital signs reviewed: Yes - General General: Alert and oriented X 3, No acute distress - HEENT HEENT: Moist mucous membranes - Neck Neck: Supple, no meningeal sign - Cardiac Cardiac: RRR - Respiratory Respiratory: No respiratory distress, Clear bilaterally - Abdomen Abdomen: Soft, Non distended, Other (Mild diffuse tenderness to palpation without peritoneal signs) - Derm Derm: Warm and dry, No rash - Extremities Extremities: No edema - Neuro Neuro: Alert and oriented X 3 - Psych Psych: Normal mood, Normal affect Results - Vitals Vitals: Vital Signs - 24 hr 11/12/17 11/12/17 11/12/17 14:21 16:19 17:55 Temperature 36.9 C 36.2 C L 36.6 C Heart Rate 101 H 98 94 Respiratory 20 20 16 Rate Blood Pressure 128/79 136/76 H 155/88 H O2 Saturation 93 93 96 Oxygen O2 Source Room air PD MEDICAL DECISION MAKING - ED course Complexity details: reviewed old records, reviewed results, re-evaluated patient , considered differential, d/w patient, d/w family ED course: Patient is a 67-year-old female with abdominal pain, described as burning today. Feels better after Carafate, and Levsin. Pain greatly improved. We will trial her on this for home. I will have her follow-up with her doctor for further evaluation and care. Abdomen is soft, nontender nondistended on serial examination. Patient and family counseled regarding signs and symptoms for which I believe and urgent re-evaluation would be necessary. Patient with good understanding of and agreement to plan and is comfortable going home at this time This document was made in part using voice recognition software. While efforts are made to proofread this document, sound alike and grammatical errors may occur. - Sepsis Event Vital Signs: Vital Signs - 24 hr 11/12/17 11/12/17 11/12/17 14:21 16:19 17:55 Temperature 36.9 C 36.2 C L 36.6 C Heart Rate 101 H 98 94 Respiratory 20 20 16 Rate Blood Pressure 128/79 136/76 H 155/88 H O2 Saturation 93 93 96 Oxygen O2 Source Room air Departure - Departure Disposition: 01 Home, Self Care Clinical Impression: Abdominal pain Qualifiers: Abdominal location: generalized Qualified Code(s): R10.84 - Generalized abdominal pain Condition: Good Instructions: ED Abdominal Pain Unkn Cause Follow-Up: Castro Haley MD [Primary Care Provider] - Within 3 Days Prescriptions: Phenobarb/Hyoscy/Atropine/Scop [ Elixir] 5 ml PO Q6HR PRN #60 ml PRN Reason: Abdominal Pain Hyoscyamine Sulfate [Levsin-Sl] 0.125 mg SL Q4H PRN #30 tab.subl PRN Reason: Abdominal Pain Sucralfate [Carafate] 1 gm PO ACHS #60 tablet Comments: Continue the flagyl. Return if you worsen. Follow up with Dr. Haley for further care. Discharge Date/Time: 11/12/17 17:57
[2017-11-12 17:57] VITALS: BP 155/88
== END 2017-11-12 17:57 | disposition home or self-care (01) ==
LOC: ED 14:07
DX: R10.84 Generalized abdominal pain (principal); I10 Essential (primary) hypertension; F17.200 Nicotine dependence, unspecified, uncomplicated
CPT/HCPCS: 99283; A9270

== ENCOUNTER 2017-11-15 08:00 | Outpatient (CLI) | payer MEDICARE, OTHER | END 2017-11-15 08:01 | LOC: LAB.R 08:00 | PROVIDERS: ATTEND Family Medicine | DX: R30.0 Dysuria (principal) | CPT/HCPCS: 87086 ==

== ENCOUNTER 2017-12-12 08:00 | Outpatient (CLI) | payer MEDICARE, OTHER ==
[2017-12-12 18:30] LABS: MUDS CUTOFF CONCENTRATIONS CUTOFF CONC BELOW:
[2017-12-12 19:39] LABS: AMPHETAMINE SCREEN,URINE NEGATIVE (NEGATIVE); BENZODIAZEPINES SCREEN, URINE NEGATIVE (NEGATIVE); COCAINE SCREEN URINE NEGATIVE (NEGATIVE); METHADONE SCREEN, URINE NEGATIVE (NEGATIVE); METHAMPHETAMINES SCREEN, URINE NEGATIVE (NEGATIVE); OPIATE SCREEN, URINE NEGATIVE (NEGATIVE); OXYCODONE SCREEN, URINE NEGATIVE (NEGATIVE); PROPOXYPHENE SCREEN, URINE NEGATIVE (NEGATIVE); TRICYCLIC ANTIDEPRESSANT,URINE NEGATIVE (NEGATIVE)
== END 2017-12-12 08:01 | disposition home or self-care (01) ==
LOC: LAB.R 08:00
PROVIDERS: ATTEND Family Medicine
DX: Z79.891 Long term (current) use of opiate analgesic (principal)
CPT/HCPCS: 80306

== ENCOUNTER 2018-02-06 11:55 | Outpatient (CLI) | payer MEDICARE, OTHER ==
--- NOTE | 2018-02-07 09:55 | CT Report ---
Reason: GENERALIZED ABDOMINAL PAIN,ACUTE DIARRHEA,ABDOMINA Procedure Date: 02/06/2018 Accession Number: [id number] / [id number] Procedure: CT - Abdomen/Pelvis W/O CPT Code: FULL RESULT: EXAM: CT ABDOMEN AND PELVIS EXAM DATE: 02/06/2018 12:59 PM. CLINICAL HISTORY: Generalized abdominal pain, acute diarrhea. COMPARISONS: CT abdomen and pelvis without IV or oral contrast 05/15/2017. TECHNIQUE: Routine helical CT imaging was performed through the abdomen and pelvis. IV contrast: No. Enteric contrast: Yes. Reconstructions: Coronal and sagittal. In accordance with CT protocol optimization, one or more of the following dose reduction techniques were utilized for this exam: automated exposure control, adjustment of mA and/or KV based on patient size, or use of iterative reconstructive technique. FINDINGS: Lung Bases: No definite significant abnormality. Liver: Normal. No masses. Gallbladder/Bile Ducts: Unremarkable. Spleen: Normal. Pancreas: Normal. Adrenal Glands: Normal. Kidneys: No stones, hydronephrosis, hydroureter or perinephric stranding. A tiny hyperdense nodule along the dorsal left renal cortex is without change from 05/15/2017 and 03/04/2016, consistent with a hyperdense cyst. Peritoneal Cavity/Bowel: Colonic diverticulosis without evidence of diverticulitis. No free fluid, free air or adenopathy. No definite masses or definite acute inflammatory process. Multiple right abdominal surgical clips are again demonstrated, probably related to prior right colonic surgery. The appendix is not visualized. Pelvic Organs: Bladder is grossly normal. The visualized pelvic organs are unremarkable. Vasculature: No aneurysms or other significant abnormality. Bones: No acute abnormality. Stable mild grade 1 anterior listhesis at L4-L5 associated with degenerative facet disease. No definite acute abnormality. Other: None. IMPRESSION: 1. No definite acute abnormality of the abdomen or pelvis, by noncontrast imaging. 2. Stable chronic and postoperative findings, as above. RADIA
== END 2018-02-06 11:56 | disposition home or self-care (01) ==
LOC: DI 11:55
PROVIDERS: ATTEND Internal Medicine
DX: R10.84 Generalized abdominal pain (principal); R14.0 Abdominal distension (gaseous); R11.0 Nausea; R19.7 Diarrhea, unspecified; K57.30 Diverticulosis of large intestine without perforation or abscess without bleeding
CPT/HCPCS: 74176

== ENCOUNTER 2018-08-28 21:41 | Emergency (ER) | payer MEDICARE, OTHER ==
[2018-08-28 23:04] LABS: BASOPHILS % (AUTO) 0.3 %; EOSINOPHILS # (AUTO) 0.1 10^3/uL (0.0-0.7); EOSINOPHILS % (AUTO) 1.4 %; HGB - HEMOGLOBIN 13.5 g/dL (12.0-16.0); LYMPHOCYTES % (AUTO) 23.3 %; MEAN CORPUSCULAR HEMOGLOBIN 30.9 pg (27.0-31.0); MEAN CORPUSCULAR HGB CONC 32.8 g/dL (32.0-36.0); MEAN CORPUSCULAR VOLUME 94.1 fL (81.0-99.0); MEAN PLATELET VOLUME 7.5 fL (7.9-10.8); MONOCYTES # (AUTO) 0.7 10^3/uL (0.0-1.0); MONOCYTES % (AUTO) 7.8 %; NEUTROPHILS # (AUTO) 5.8 10^3/uL (1.5-6.6); NEUTROPHILS % (AUTO) 67.2 %; PLT - PLATELET COUNT 298 10^3/uL (130-450); RED BLOOD COUNT 4.38 10^6/uL (4.20-5.40); RED CELL DISTRIBUTION WIDTH 13.7 % (12.0-15.0); WHITE BLOOD COUNT 8.6 x10^3/uL (4.8-10.8)
[2018-08-28 23:16] LABS: ALBUMIN 4.2 g/dL (3.2-5.5); BILIRUBIN,TOTAL 0.4 mg/dL (0.2-1.0); CALCIUM 9.9 mg/dL (8.5-10.3); CREATININE 0.7 mg/dL (0.4-1.0); TOTAL PROTEIN 8.5 g/dL (6.7-8.2)
[2018-08-29] MEDS ORDERED: ONDANSETRON ODT 4 MG TABLET TL STA (00:40)
[2018-08-29] MEDS ORDERED: DICYCLOMINE 10 MG CAPSULE PO STA (00:40)
[2018-08-29] MEDS ORDERED: PHENAZOPYRIDINE 100 MG TABLET PO STA (00:40)
[2018-08-29 01:15] LABS: BILIRUBIN,URINE NEGATIVE (NEGATIVE); GLUCOSE, URINE (UA) NEGATIVE (NEGATIVE); KETONES,URINE (UA) NEGATIVE (NEGATIVE); LEUKOCYTE ESTERASE, URINE NEGATIVE (NEGATIVE); NITRITE,URINE NEGATIVE (NEGATIVE); OCCULT BLOOD,URINE NEGATIVE (NEGATIVE); PH,URINE 5.5 PH (5.0-7.5); PROTEIN,URINE NEGATIVE (NEGATIVE); UROBILINOGEN,URINE 0.2 (NORMAL) E.U./dL (NORMAL)
[2018-08-29 01:20] LABS: CLARITY,URINE CLEAR (CLEAR)
[2018-08-29 01:36] VITALS: BP 132/70
--- NOTE | 2018-08-29 01:38 | ED Physician Documentation ---
PD HPI FEMALE - Stated complaint Stated Complaint: PX IN LOWER ABD - Chief complaint Chief Complaint: Abd Pain - History obtained from History obtained from: Patient - History of Present Illness Timing - onset: Other (6 months ongoing) Timing - duration: Months (6) Timing - details: Gradual onset, Still present Pain level max: 5 Pain level max: 5 Associated symptoms: Abdominal pain, Urinary frequency, Other (reports urinary urgency). No: Fever, Chest/shoulder pain, Back pain, Pelvic pain, Vaginal pain, Vaginal bleeding, Vaginal discharge, Genital sore/lesion, Dysuria, Hematuria Similar symptoms before: No diagnosis, Work up / diagnostics (states urology told her nothing is wrong) Recently seen: Not recently seen - Treatment prior to arrival Treatment prior to arrival: phenergan Review of Systems Ten Systems: 10 systems reviewed and negative Constitutional: denies: Fever, Chills Cardiac: denies: Chest pain / pressure Respiratory: denies: Dyspnea GI: reports: Abdominal Pain, Nausea, Constipation, Diarrhea. denies: Vomiting, Hematemesis, Bloody / black stool : reports: Frequency, Other (urgency). 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 HEENT: Tonsil/Adenoidectomy - Present Medications Home Medications: Ambulatory Orders Medication Instructions Recorded Confirmed Lorazepam [Ativan] 0.5 mg PO Q6-8H PRN 03/04/16 05/15/17 RX: Citalopram [CeleXA] 10 mg ORAL DAILY 03/04/16 05/15/17 RX: Propranolol [Inderal] 10 mg ORAL BID 03/04/16 05/15/17 Dicyclomine [Bentyl] 10 mg PO Q8H PRN #20 capsule 05/15/17 Hydrocodone/Acetaminophen 1 tab TID 05/15/17 05/15/17 [Hydrocodone-Acetamin 10-325 mg] raNITIdine [Zantac] 150 mg PO BID #60 tablet 05/15/17 HYDROcod/ACETAM 5/325 [[place] 5/325] 1 tab PO Q6H PRN #15 tablet 11/07/17 RX: Doxycycline Monohydrate 100 mg PO BID #14 tablet 11/07/17 RX: Naproxen 375 mg PO BID #20 tablet 11/07/17 RX: Phenazopyridine HCl 200 mg PO TID PRN #10 tablet 11/07/17 RX: Amitriptyline [Elavil] 10 mg PO HS #10 tablet 11/09/17 RX: oxyCODONE [Roxicodone] 5 mg PO Q4-6H PRN #20 tablet 11/09/17 Metronidazole [Flagyl] 500 mg PO BID #20 tablet 11/11/17 Oxycodone HCl/Acetaminophen 1 - 2 each PO Q6H PRN #10 tablet 11/11/17 [Percocet 5-325 mg Tablet] Hyoscyamine Sulfate [Levsin-Sl] 0.125 mg SL Q4H PRN #30 tab.subl 11/12/17 Phenobarb/Hyoscy/Atropine/Scop 5 ml PO Q6HR PRN #60 ml 11/12/17 [ Elixir] Sucralfate [Carafate] 1 gm PO ACHS #60 tablet 11/12/17 Dicyclomine [Bentyl] 10 mg PO QID PRN #20 capsule 08/29/18 Ondansetron Odt [Zofran] 4 mg TL Q6H PRN #10 tablet 08/29/18 Phenazopyridine HCl [Pyridium] 200 mg PO TID PRN #6 tablet 08/29/18 - Allergies Allergies/Adverse Reactions: Allergies Allergy/AdvReac Type Severity Reaction Status Date / Time amoxicillin trihydrate * Allergy Intermediate Emesis, Verified 08/28/18 21:57 [From Augmentin] nausea erythromycin base Allergy Intermediate Emesis, Verified 08/28/18 21:57 [Erythromycin Base] nausea morphine Allergy Intermediate Hallucinati Verified 08/28/18 21:57 ons potassium clavulanate * Allergy Intermediate Emesis, Verified 08/28/18 21:57 [From Augmentin] nausea Sulfa (Sulfonamide Allergy Nausea Verified 08/28/18 21:57 Antibiotics) iodine AdvReac Severe Hives Verified 08/28/18 21:57 - Social History Does the pt smoke?: Yes Smoking Status: Current every day smoker Does the pt drink ETOH?: No Does the pt have substance abuse?: No - Immunizations Immunizations are current?: Yes - POLST Patient has POLST: No PD ED PE NORMAL - Vitals Vital signs reviewed: Yes - General General: Alert and oriented X 3 - HEENT HEENT: Atraumatic - Neck Neck: Supple, no meningeal sign, No JVD - Cardiac Cardiac: RRR, No murmur - Respiratory Respiratory: No respiratory distress - Abdomen Abdomen: Soft, Non tender, Non distended - Female Female : Deferred - Rectal Rectal: Deferred - Derm Derm: Normal color, Warm and dry, No rash - Extremities Extremities: No deformity, No tenderness to palpate, Normal ROM s pain, No edema - Neuro Eye Opening: Spontaneous Motor: Obeys Commands Verbal: Oriented GCS Score: 15 - Psych Psych: Normal mood, Normal affect Results - Vitals Vitals: Vital Signs - 24 hr 08/28/18 08/28/18 08/29/18 21:54 23:55 01:35 Temperature 37.0 C 36.4 C L Heart Rate 100 86 90 Respiratory 17 18 16 Rate Blood Pressure 141/81 H 138/72 H 132/70 H O2 Saturation 95 93 95 Oxygen O2 Source Room air - Labs Labs: Laboratory Tests 08/28/18 08/28/18 08/29/18 22:58 22:58 00:20 WBC 8.6 RBC 4.38 Hgb 13.5 Hct 41.2 MCV 94.1 MCH 30.9 MCHC 32.8 RDW 13.7 Plt Count 298 MPV 7.5 L Neut # (Auto) 5.8 Lymph # (Auto) 2.0 [place] # (Auto) 0.7 Eos # (Auto) 0.1 Baso # (Auto) 0.0 Absolute Nucleated RBC 0.00 Nucleated RBC % 0.0 Sodium 138 Potassium 4.3 Chloride 100 L Carbon Dioxide 28 Anion Gap 10.0 BUN 10 Creatinine 0.7 Estimated GFR (MDRD) 84 L Glucose 146 H Calcium 9.9 Total Bilirubin 0.4 AST 31 ALT 30 Alkaline Phosphatase 82 Total Protein 8.5 H Albumin 4.2 Globulin 4.3 H Albumin/Globulin Ratio 1.0 Lipase 20 L Urine Color YELLOW Urine Clarity CLEAR Urine pH 5.5 Ur Specific [place] 1.020 Urine Protein NEGATIVE Urine Glucose (UA) NEGATIVE Urine Ketones NEGATIVE Urine Occult Blood NEGATIVE Urine Nitrite NEGATIVE Urine Bilirubin NEGATIVE Urine Urobilinogen 0.2 (NORMAL) Ur Leukocyte Esterase NEGATIVE Ur Microscopic Review NOT INDICATED Urine Culture Comments NOT INDICATED Labs normal except for hyperglycemia PD MEDICAL DECISION MAKING - ED course Complexity details: reviewed results, re-evaluated patient, considered differential, d/w patient, d/w family ED course: 68 y/o F with chronic lower abdominal discomfort, ongoing, urinary urgency, also reports fecal urgency and constipation. Pt reports also having nausea today. Her symptoms however having been constant and unchnaging for many months despite workup by Urology in the past including cystoscopy. Today her examination is normal. Vitals normal. Labs normal except for mild hyperglycemia. She has no UTI. Her symptoms are somewhat consistent with interstitial cystitis which likely needs further eval. Provided pt with some options for lifestyle modifications in case this is the etiology of her symptoms. Also given a short course of pyridium since this has helped in the past. Pt's GI symptoms may be related to IBS. I do not believe she has any acute abdominal emergency however. Will give trial of bentyl. Departure - Departure Disposition: 01 Home, Self Care Clinical Impression: Cystitis Irritable bowel syndrome Qualifiers: Irritable bowel syndrome type: unspecified Qualified Code(s): K58.9 - Irritable bowel syndrome without diarrhea Record reviewed to determine appropriate education?: Yes Instructions: ED IBS Prescriptions: Dicyclomine [Bentyl] 10 mg PO QID PRN #20 capsule PRN Reason: Abdominal Pain Ondansetron Odt [Zofran] 4 mg TL Q6H PRN #10 tablet PRN Reason: Nausea / Vomiting Phenazopyridine HCl [Pyridium] 200 mg PO TID PRN #6 tablet PRN Reason: dysuria Comments: Your labs and urine sample here were negative. Your symptoms may be due to inflammatory condition such as interstitial cystitis and/or IBS and should be followed up by your PCP. Return to the ED if you develop a fever or new concerns. Discharge Date/Time: 08/29/18 01:45
== END 2018-08-29 01:45 | disposition home or self-care (01) ==
LOC: ED 21:41
DX: N30.90 Cystitis, unspecified without hematuria (principal); K58.9 Irritable bowel syndrome, unspecified; R73.9 Hyperglycemia, unspecified; I10 Essential (primary) hypertension; F17.200 Nicotine dependence, unspecified, uncomplicated
CPT/HCPCS: 36415; 80053; 81003; 83690; 85025; 99283; 99284; A9270; Q0162; 81001; 87086

== ENCOUNTER 2018-09-01 08:41 | Emergency (ER) | payer MEDICARE, OTHER ==
[2018-09-01] MEDS ORDERED: SODIUM CHLORIDE 0.9% 1,000 ML IV ONE (09:36)
[2018-09-01] MEDS ORDERED: KETOROLAC 30 MG/ML VIAL IVP STA (09:36)
[2018-09-01] MEDS ORDERED: DEXAMETHASONE 10 MG/ML VIAL IVP STA (09:37)
--- NOTE | 2018-09-01 09:40 | ED Physician Documentation ---
PD HPI ABD PAIN - Stated complaint Stated Complaint: ABD PX - Chief complaint Chief Complaint: UTI - History obtained from History obtained from: Patient, Family - History of Present Illness Timing - onset: How many months ago (2-3) Timing - duration: Months Timing - details: Gradual onset, Still present, Waxing and waning Quality: Sharp, Pain Location: Suprapubic Radiation: Lower back Improved by: Laying still Worsened by: Moving, Position, Palpation, Other (full bladder) Associated symptoms: Nausea, Diarrhea (loose stool only). No: Vomiting Similar symptoms before: No diagnosis, Work up / diagnostics Recently seen: Other - Additional information Additional information: 68-year-old female with a prior history of diverticular rupture and fibromyalgia as well as prior urinary tract infection has developed some lower abdominal suprapubic cramping pain that is burning in nature and she has been sleeping with a heating pack on. She has been into see the urologist has had a cystoscopy and she has been into see the technical business systems analyst and has had a CT of her abdomen and pelvis. No specific cause for her pain is been determined. She does have some increase in her pain with movement she does have some increase in her pain with urination. She states that she has a feeling of fullness and pain to the lower abdominal area. Review of Systems Constitutional: denies: Fever Eyes: denies: Decreased vision Ears: denies: Ear pain Nose: denies: Rhinorrhea / runny nose, Congestion Throat: denies: Sore throat Cardiac: denies: Chest pain / pressure, Palpitations Respiratory: denies: Dyspnea, Cough GI: reports: Abdominal Pain, Nausea, Diarrhea. denies: Vomiting : reports: Dysuria, Frequency Skin: denies: Rash Musculoskeletal: reports: Back pain. 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 HEENT: Tonsil/Adenoidectomy - Present Medications Home Medications: Ambulatory Orders Medication Instructions Recorded Confirmed Propranolol [Inderal] 10 mg ORAL BID 03/04/16 05/15/17 Dicyclomine [Bentyl] 10 mg PO Q8H PRN #20 capsule 05/15/17 Phenazopyridine HCl 200 mg PO TID PRN #10 tablet 11/07/17 Dicyclomine [Bentyl] 10 mg PO QID PRN #20 capsule 08/29/18 Ondansetron Odt [Zofran] 4 mg TL Q6H PRN #10 tablet 08/29/18 Phenazopyridine HCl [Pyridium] 200 mg PO TID PRN #6 tablet 08/29/18 LORazepam [Ativan] 1 mg PO Q8HR PRN #20 tablet 09/01/18 Methocarbamol [Robaxin-750] 750 mg PO TID PRN #20 tablet 09/01/18 Oxycodone HCl/Acetaminophen 1 - 2 each PO Q6H PRN #14 tablet 09/01/18 [Percocet 5-325 mg Tablet] - Allergies Allergies/Adverse Reactions: Allergies Allergy/AdvReac Type Severity Reaction Status Date / Time amoxicillin trihydrate * Allergy Intermediate Emesis, Verified 09/01/18 08:58 [From Augmentin] nausea erythromycin base Allergy Intermediate Emesis, Verified 09/01/18 08:58 [Erythromycin Base] nausea morphine Allergy Intermediate Hallucinati Verified 09/01/18 08:58 ons potassium clavulanate * Allergy Intermediate Emesis, Verified 09/01/18 08:58 [From Augmentin] nausea Sulfa (Sulfonamide Allergy Nausea Verified 09/01/18 08:58 Antibiotics) iodine AdvReac Severe Hives Verified 09/01/18 08:58 ciprofloxacin [From Cipro] AdvReac Nausea Verified 09/01/18 08:58 - Social History Does the pt smoke?: Yes Smoking Status: Current every day smoker Does the pt drink ETOH?: No Does the pt have substance abuse?: No - Immunizations Immunizations are current?: Yes - POLST Patient has POLST: No PD ED PE NORMAL - Vitals Vital signs reviewed: Yes (hypertensive ) - General General: Alert and oriented X 3, Well developed/nourished, Other (crying in pain ) - HEENT HEENT: Atraumatic, PERRL, EOMI - Neck Neck: Supple, no meningeal sign, No bony TTP - Cardiac Cardiac: RRR, No murmur - Respiratory Respiratory: No respiratory distress, Clear bilaterally - Abdomen Abdomen: Soft, Other (The abdominal wall is mottled with redd from the heating pad. There is general tenderness without guarding or rebound tenderness. The tenderness is more associated with the suprapubic area and more on the left side. ) - Back Back: No CVA TTP, No spinal TTP - Derm Derm: Normal color, Warm and dry, No rash - Extremities Extremities: No deformity, No edema - Neuro Neuro: Alert and oriented X 3, credit card specialist 2-12 intact, No motor deficit, No sensory deficit, Normal speech Eye Opening: Spontaneous Motor: Obeys Commands Verbal: Oriented GCS Score: 15 - Psych Psych: Other (mood is painful and the affect is flat. ) Results - Vitals Vitals: Vital Signs - 24 hr 09/01/18 09/01/18 08:54 11:06 Temperature 36.6 C Heart Rate 86 74 Respiratory 22 Rate Blood Pressure 154/86 H 158/87 H O2 Saturation 93 96 Oxygen O2 Source Room air Oxygen Flow Rate 2 - Labs Labs: Laboratory Tests 09/01/18 09/01/18 09/01/18 10:00 10:00 10:00 WBC 8.3 RBC 4.41 Hgb 13.5 Hct 41.3 MCV 93.6 MCH 30.7 MCHC 32.8 RDW 13.8 Plt Count 280 MPV 7.9 Neut # (Auto) 5.4 Lymph # (Auto) 2.0 [place] # (Auto) 0.7 Eos # (Auto) 0.1 Baso # (Auto) 0.1 Absolute Nucleated RBC 0.01 Nucleated RBC % 0.1 Sodium 139 Potassium 4.0 Chloride 98 L Carbon Dioxide 30 Anion Gap 11.0 BUN 11 Creatinine 0.7 Estimated GFR (MDRD) 84 L Glucose 154 H Calcium 10.2 Total Bilirubin 0.4 AST 26 ALT 25 Alkaline Phosphatase 78 Troponin I < 0.04 Total Protein 8.1 Albumin 4.2 Globulin 3.9 Albumin/Globulin Ratio 1.1 Lipase 21 L Urine Color Urine Clarity Urine pH Ur Specific [place] Urine Protein Urine Glucose (UA) Urine Ketones Urine Occult Blood Urine Nitrite Urine Bilirubin Urine Urobilinogen Ur Leukocyte Esterase Urine RBC Urine WBC Ur Squamous Epith Cells Urine Bacteria Ur Microscopic Review Urine Culture Comments 09/01/18 10:05 WBC RBC Hgb Hct MCV MCH MCHC RDW Plt Count MPV Neut # (Auto) Lymph # (Auto) [place]ess # (Auto) Eos # (Auto) Baso # (Auto) Absolute Nucleated RBC Nucleated RBC % Sodium Potassium Chloride Carbon Dioxide Anion Gap BUN Creatinine Estimated GFR (MDRD) Glucose Calcium Total Bilirubin AST ALT Alkaline Phosphatase Troponin I Total Protein Albumin Globulin Albumin/Globulin Ratio Lipase Urine Color DK. ORANGE Urine Clarity CLOUDY Urine pH Ur Specific [place] 1.025 Urine Protein Urine Glucose (UA) Urine Ketones Urine Occult Blood NEGATIVE Urine Nitrite Urine Bilirubin NEGATIVE Urine Urobilinogen Ur Leukocyte Esterase Urine RBC 0-5 Urine WBC 0-3 Ur Squamous Epith Cells MOD Squamous H Urine Bacteria Rare Ur Microscopic Review INDICATED Urine Culture Comments NOT INDICATED Procedures - IVC sono (time) [id number] Bedside IVC sono: IVC measures (cm) (1.02), IVC collapsed c insp (cm) (complete), Dehydration (est >1 liter deficit) PD MEDICAL DECISION MAKING - ED course Complexity details: reviewed old records, reviewed results, re-evaluated patient, considered differential, d/w patient, d/w family ED course: 68 y/o female with suprapubic pain and redd to the abdominal wall from the heating pad is given IV toradal and decadron and she is given IV saline for dehydration. She has poor relief of the pain with the toradal and diluadid is administered with improvement. She indicates she still has all of this pressure above her pubic bone and this persists. She indicates this pain is similar to what she has had evaluated numerous times and she has had 4 CT scans in the past year and visits to urology and gastroenterology. She is administered IV ativan for anxiety and with this her pain is some better as well. Further history indicates she has been on ativan 1mg tid for several months and has been off for 1-2 weeks. Her pain has been worse since as well but was pre-existing. I am concerned about some part of benzo withdrawal that has not resolved. She is given a script for symptomatic treatment including muscle relaxer, oxycodone and ativan. She has follow up with a new doctor arranged. Departure - Departure Disposition: 01 Home, Self Care Clinical Impression: Abdominal pain Qualifiers: Abdominal location: lower abdomen, unspecified Qualified Code(s): R10.30 - Lower abdominal pain, unspecified Condition: Stable Instructions: ED Abdominal Pain Unkn Cause Follow-Up: Castro Haley MD [Primary Care Provider] - Katie Cruz MD [Provider Admit Priv/Credential] - Prescriptions: LORazepam [Ativan] 1 mg PO Q8HR PRN #20 tablet PRN Reason: Anxiety Methocarbamol [Robaxin-750] 750 mg PO TID PRN #20 tablet PRN Reason: Pain Oxycodone HCl/Acetaminophen [Percocet 5-325 mg Tablet] 1 - 2 each PO Q6H PRN #14 tablet PRN Reason: pain Comments: Today we did not discover any new etiology for this lower abdominal pressure you have had for the past year. We will provide some medication for symptomatic treatment and I recommend you stop using the heating pack and follow-up with your primary care doctor.
[2018-09-01 10:38] LABS: BASOPHILS # (AUTO) 0.1 10^3/uL (0.0-0.1); BASOPHILS % (AUTO) 0.8 %; EOSINOPHILS # (AUTO) 0.1 10^3/uL (0.0-0.7); EOSINOPHILS % (AUTO) 1.7 %; HGB - HEMOGLOBIN 13.5 g/dL (12.0-16.0); LYMPHOCYTES % (AUTO) 24.1 %; MEAN CORPUSCULAR HEMOGLOBIN 30.7 pg (27.0-31.0); MEAN CORPUSCULAR HGB CONC 32.8 g/dL (32.0-36.0); MEAN CORPUSCULAR VOLUME 93.6 fL (81.0-99.0); MEAN PLATELET VOLUME 7.9 fL (7.9-10.8); MONOCYTES # (AUTO) 0.7 10^3/uL (0.0-1.0); MONOCYTES % (AUTO) 8.6 %; NEUTROPHILS # (AUTO) 5.4 10^3/uL (1.5-6.6); NEUTROPHILS % (AUTO) 64.8 %; PLT - PLATELET COUNT 280 10^3/uL (130-450); RED BLOOD COUNT 4.41 10^6/uL (4.20-5.40); RED CELL DISTRIBUTION WIDTH 13.8 % (12.0-15.0); WHITE BLOOD COUNT 8.3 x10^3/uL (4.8-10.8)
[2018-09-01] MEDS ORDERED: HYDROmorphone 1 MG/ML CARPUJECT IVP STA (10:45)
[2018-09-01] MEDS ORDERED: ONDANSETRON 4 MG/2 ML VIAL IVP STA (10:45)
[2018-09-01 10:51] LABS: ALBUMIN 4.2 g/dL (3.2-5.5); ALBUMIN/GLOBULIN RATIO 1.1 (1.0-2.2); BILIRUBIN,TOTAL 0.4 mg/dL (0.2-1.0); CALCIUM 10.2 mg/dL (8.5-10.3); CREATININE 0.7 mg/dL (0.4-1.0); TOTAL PROTEIN 8.1 g/dL (6.7-8.2)
[2018-09-01 11:02] LABS: BILIRUBIN,URINE NEGATIVE (NEGATIVE); OCCULT BLOOD,URINE NEGATIVE (NEGATIVE)
[2018-09-01 11:06] LABS: CLARITY,URINE CLOUDY (CLEAR)
[2018-09-01 11:14] LABS: BACTERIA,URINE Rare /HPF (None Seen); RBC,URINE 0-5 /HPF (0-5); SQUAMOUS EPITHELIAL CELL,UR MOD Squamous (<= Few)
[2018-09-01] MEDS ORDERED: LORazepam 2 MG/ML VIAL IVP STA (12:35)
[2018-09-01 14:37] VITALS: BP 148/91
== END 2018-09-01 14:37 | disposition home or self-care (01) ==
LOC: ED 08:41
DX: R10.30 Lower abdominal pain, unspecified (principal); E86.0 Dehydration; T21.02XA Burn of unspecified degree of abdominal wall, initial encounter; X19.XXXA Contact with other heat and hot substances, initial encounter; F41.9 Anxiety disorder, unspecified; I10 Essential (primary) hypertension; M79.7 Fibromyalgia; F17.200 Nicotine dependence, unspecified, uncomplicated; Z87.19 Personal history of other diseases of the digestive system; Z87.440 Personal history of urinary (tract) infections
CPT/HCPCS: 36415; 80053; 81001; 83690; 84484; 85025; 96361; 96374; 96375; 99283; 99284; J1170; J2060; 81003; 87086

== ENCOUNTER 2018-09-04 00:49 | Emergency (ER) | payer MEDICARE, OTHER ==
[2018-09-04 02:14] LABS: BASOPHILS # (AUTO) 0.1 10^3/uL (0.0-0.1); BASOPHILS % (AUTO) 0.6 %; EOSINOPHILS # (AUTO) 0.1 10^3/uL (0.0-0.7); EOSINOPHILS % (AUTO) 1.1 %; HGB - HEMOGLOBIN 12.7 g/dL (12.0-16.0); LYMPHOCYTES # (AUTO) 2.1 10^3/uL (1.5-3.5); LYMPHOCYTES % (AUTO) 22.8 %; MEAN CORPUSCULAR HEMOGLOBIN 30.6 pg (27.0-31.0); MEAN CORPUSCULAR HGB CONC 32.6 g/dL (32.0-36.0); MONOCYTES # (AUTO) 0.9 10^3/uL (0.0-1.0); MONOCYTES % (AUTO) 9.5 %; PLT - PLATELET COUNT 263 10^3/uL (130-450); RED BLOOD COUNT 4.13 10^6/uL (4.20-5.40); RED CELL DISTRIBUTION WIDTH 14.2 % (12.0-15.0); WHITE BLOOD COUNT 9.1 x10^3/uL (4.8-10.8)
[2018-09-04 02:18] LABS: BILIRUBIN,URINE NEGATIVE (NEGATIVE); CLARITY,URINE CLEAR (CLEAR); GLUCOSE, URINE (UA) NEGATIVE (NEGATIVE); KETONES,URINE (UA) NEGATIVE (NEGATIVE); LEUKOCYTE ESTERASE, URINE NEGATIVE (NEGATIVE); NITRITE,URINE NEGATIVE (NEGATIVE); OCCULT BLOOD,URINE TRACE-LYSE (NEGATIVE); PROTEIN,URINE NEGATIVE (NEGATIVE); UROBILINOGEN,URINE 0.2 (NORMAL) E.U./dL (NORMAL)
[2018-09-04 02:23] LABS: ALBUMIN/GLOBULIN RATIO 1.1 (1.0-2.2); BILIRUBIN,TOTAL 0.4 mg/dL (0.2-1.0); CALCIUM 9.1 mg/dL (8.5-10.3); CREATININE 0.7 mg/dL (0.4-1.0); TOTAL PROTEIN 7.8 g/dL (6.7-8.2)
--- NOTE | 2018-09-04 03:14 | ED Physician Documentation ---
PD HPI ABD PAIN - Stated complaint Stated Complaint: ABD PX/FEM PX - Chief complaint Chief Complaint: Abd Pain - History obtained from History obtained from: Patient - History of Present Illness Timing - onset: How many years ago (3) Timing - duration: Years (3) Timing - details: Gradual onset, Still present, Waxing and waning Review of Systems Constitutional: reports: Myalgias. denies: Fever, Chills Eyes: denies: Decreased vision Ears: denies: Ear pain Nose: denies: Congestion Respiratory: denies: Cough GI: reports: Abdominal Pain, Abdominal Swelling, Nausea. 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 HEENT: Tonsil/Adenoidectomy - Present Medications Home Medications: Ambulatory Orders Medication Instructions Recorded Confirmed Propranolol [Inderal] 10 mg ORAL BID 03/04/16 05/15/17 Dicyclomine [Bentyl] 10 mg PO Q8H PRN #20 capsule 05/15/17 Phenazopyridine HCl 200 mg PO TID PRN #10 tablet 11/07/17 Dicyclomine [Bentyl] 10 mg PO QID PRN #20 capsule 08/29/18 Ondansetron Odt [Zofran] 4 mg TL Q6H PRN #10 tablet 08/29/18 Phenazopyridine HCl [Pyridium] 200 mg PO TID PRN #6 tablet 08/29/18 LORazepam [Ativan] 1 mg PO Q8HR PRN #20 tablet 09/01/18 Methocarbamol [Robaxin-750] 750 mg PO TID PRN #20 tablet 09/01/18 Oxycodone HCl/Acetaminophen 1 - 2 each PO Q6H PRN #14 tablet 09/01/18 [Percocet 5-325 mg Tablet] Ondansetron Odt [Zofran] 4 mg TL Q6H PRN #10 tablet 09/04/18 Oxycodone HCl/Acetaminophen 1 - 2 each PO Q6H PRN #20 tablet 09/04/18 [Percocet 5-325 mg Tablet] predniSONE [Deltasone] 10 mg PO [id number] #42 tab 09/04/18 - Allergies Allergies/Adverse Reactions: Allergies Allergy/AdvReac Type Severity Reaction Status Date / Time amoxicillin trihydrate * Allergy Intermediate Emesis, Verified 09/01/18 08:58 [From Augmentin] nausea erythromycin base Allergy Intermediate Emesis, Verified 09/01/18 08:58 [Erythromycin Base] nausea morphine Allergy Intermediate Hallucinati Verified 09/01/18 08:58 ons potassium clavulanate * Allergy Intermediate Emesis, Verified 09/01/18 08:58 [From Augmentin] nausea Sulfa (Sulfonamide Allergy Nausea Verified 09/01/18 08:58 Antibiotics) iodine AdvReac Severe Hives Verified 09/01/18 08:58 ciprofloxacin [From Cipro] AdvReac Nausea Verified 09/01/18 08:58 - Social History Does the pt smoke?: Yes Smoking Status: Current every day smoker Does the pt drink ETOH?: No Does the pt have substance abuse?: No - Immunizations Immunizations are current?: Yes - POLST Patient has POLST: No PD ED PE NORMAL - Vitals Vital signs reviewed: Yes (tachy and hypertensive ) - General General: Alert and oriented X 3, No acute distress, Well developed/nourished - HEENT HEENT: Atraumatic, PERRL, EOMI - Respiratory Respiratory: No respiratory distress - Abdomen Abdomen: Normal bowel sounds, Soft, Other (There is mild suprapubic tenderness bilaterally. There is pigmentation mottled to the abdominal wall from the heating pack and this looks improved from prior. ) - Back Back: No CVA TTP, No spinal TTP - Derm Derm: Normal color, Warm and dry - Extremities Extremities: No deformity, No edema - Neuro Neuro: Alert and oriented X 3, web content manager 2-12 intact, No motor deficit, No sensory deficit, Normal speech Eye Opening: Spontaneous Motor: Obeys Commands Verbal: Oriented GCS Score: 15 - Psych Psych: Normal mood, Normal affect Results - Vitals Vitals: Vital Signs - 24 hr 09/04/18 00:59 Temperature 36.6 C Heart Rate 107 H Respiratory 18 Rate Blood Pressure 147/81 H O2 Saturation 96 Oxygen O2 Source Room air - Labs Labs: Laboratory Tests 09/04/18 09/04/18 09/04/18 02:00 02:00 02:00 WBC 9.1 RBC 4.13 L Hgb 12.7 Hct 38.9 MCV 94.0 MCH 30.6 MCHC 32.6 RDW 14.2 Plt Count 263 MPV 7.0 L Neut # (Auto) 6.0 Lymph # (Auto) 2.1 [place] # (Auto) 0.9 Eos # (Auto) 0.1 Baso # (Auto) 0.1 Absolute Nucleated RBC 0.01 Nucleated RBC % 0.1 Sodium 139 Potassium 3.6 Chloride 100 L Carbon Dioxide 29 Anion Gap 10.0 BUN 18 Creatinine 0.7 Estimated GFR (MDRD) 84 L Glucose 171 H Calcium 9.1 Total Bilirubin 0.4 AST 29 ALT 29 Alkaline Phosphatase 73 Total Protein 7.8 Albumin 4.0 Globulin 3.8 Albumin/Globulin Ratio 1.1 Lipase 23 Urine Color YELLOW Urine Clarity CLEAR Urine pH 6.0 Ur Specific [place] 1.025 Urine Protein NEGATIVE Urine Glucose (UA) NEGATIVE Urine Ketones NEGATIVE Urine Occult Blood TRACE-LYSE Urine Nitrite NEGATIVE Urine Bilirubin NEGATIVE Urine Urobilinogen 0.2 (NORMAL) Ur Leukocyte Esterase NEGATIVE Ur Microscopic Review NOT INDICATED Urine Culture Comments NOT INDICATED PD MEDICAL DECISION MAKING - ED course Complexity details: reviewed results, re-evaluated patient, considered differential, d/w patient, d/w family ED course: 68-year-old female with chronic lower abdominal pain reports that following her visit with us here 3 days ago she had improvement in her pain and resolution that lasted about 1-1/2-day. She has since had recurrence of the pain and she is back here for further treatment. She has no new symptoms. She has had extensive work-up and no specific findings. She did get relief after being administered dexamethasone 10 mg intravenously and this was effective for about 1-1/2-day. I discussed with the patient a brief course of prednisone and a follow-up with her primary care doctor with a report of the effectiveness of this. She is asking for more pain medication and more nausea medicine and I have indicated to her that we will not be able to fill this further after today. She will need to get her medications from her primary. Departure - Departure Disposition: 01 Home, Self Care Clinical Impression: Suprapubic abdominal burning sensation Condition: Stable Instructions: ED Abdominal Pain Unkn Cause Follow-Up: Katie Cruz MD [Provider Admit Priv/Credential] - Prescriptions: Ondansetron Odt [Zofran] 4 mg TL Q6H PRN #10 tablet PRN Reason: Nausea / Vomiting Oxycodone HCl/Acetaminophen [Percocet 5-325 mg Tablet] 1 - 2 each PO Q6H PRN #20 tablet PRN Reason: pain predniSONE [Deltasone] 10 mg PO [id number] #42 tab
[2018-09-04] MEDS ORDERED: DEXAMETHASONE 10 MG/ML VIAL PO STA (03:34)
[2018-09-04] MEDS ORDERED: CHERRY SYRUP 10 ML UDC PO ONE (03:34)
[2018-09-04 03:42] VITALS: BP 132/82
== END 2018-09-04 03:51 | disposition home or self-care (01) ==
LOC: ED 00:49
DX: R10.30 Lower abdominal pain, unspecified (principal); I10 Essential (primary) hypertension; F17.200 Nicotine dependence, unspecified, uncomplicated
CPT/HCPCS: 36415; 80053; 81003; 83690; 85025; 99283; A9270; 81001; 87086

== ENCOUNTER 2018-09-07 19:17 | Emergency (ER) | payer MEDICARE, OTHER ==
[2018-09-07 20:18] LABS: BILIRUBIN,URINE NEGATIVE (NEGATIVE); GLUCOSE, URINE (UA) 100 mg/dL (NEGATIVE); KETONES,URINE (UA) NEGATIVE (NEGATIVE); LEUKOCYTE ESTERASE, URINE NEGATIVE (NEGATIVE); NITRITE,URINE NEGATIVE (NEGATIVE); OCCULT BLOOD,URINE NEGATIVE (NEGATIVE); PROTEIN,URINE NEGATIVE (NEGATIVE); UROBILINOGEN,URINE 0.2 (NORMAL) E.U./dL (NORMAL)
[2018-09-07 20:19] LABS: BASOPHILS # (AUTO) 0.1 10^3/uL (0.0-0.1); BASOPHILS % (AUTO) 0.5 %; HGB - HEMOGLOBIN 14.2 g/dL (12.0-16.0); LYMPHOCYTES # (AUTO) 1.7 10^3/uL (1.5-3.5); LYMPHOCYTES % (AUTO) 12.9 %; MEAN CORPUSCULAR HEMOGLOBIN 30.1 pg (27.0-31.0); MEAN CORPUSCULAR VOLUME 94.2 fL (81.0-99.0); MEAN PLATELET VOLUME 7.3 fL (7.9-10.8); MONOCYTES # (AUTO) 0.7 10^3/uL (0.0-1.0); MONOCYTES % (AUTO) 5.3 %; NEUTROPHILS # (AUTO) 10.8 10^3/uL (1.5-6.6); NEUTROPHILS % (AUTO) 81.3 %; PLT - PLATELET COUNT 350 10^3/uL (130-450); RED CELL DISTRIBUTION WIDTH 13.9 % (12.0-15.0); WHITE BLOOD COUNT 13.3 x10^3/uL (4.8-10.8)
[2018-09-07 20:20] LABS: CLARITY,URINE HAZY (CLEAR)
[2018-09-07 20:24] LABS: BACTERIA,URINE Many /HPF (None Seen); RBC,URINE 0-5 /HPF (0-5); SQUAMOUS EPITHELIAL CELL,UR MANY Squamous (<= Few)
[2018-09-07 20:30] LABS: ALBUMIN 4.3 g/dL (3.2-5.5); ALBUMIN/GLOBULIN RATIO 1.2 (1.0-2.2); BILIRUBIN,TOTAL 0.6 mg/dL (0.2-1.0); CALCIUM 9.8 mg/dL (8.5-10.3); CREATININE 0.8 mg/dL (0.4-1.0); TOTAL PROTEIN 7.9 g/dL (6.7-8.2)
--- NOTE | 2018-09-07 21:24 | ED Physician Documentation ---
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 HEENT: Tonsil/Adenoidectomy - Present Medications Home Medications: Ambulatory Orders Medication Instructions Recorded Confirmed Propranolol [Inderal] 10 mg ORAL BID 03/04/16 05/15/17 Dicyclomine [Bentyl] 10 mg PO Q8H PRN #20 capsule 05/15/17 Phenazopyridine HCl 200 mg PO TID PRN #10 tablet 11/07/17 Dicyclomine [Bentyl] 10 mg PO QID PRN #20 capsule 08/29/18 Ondansetron Odt [Zofran] 4 mg TL Q6H PRN #10 tablet 08/29/18 Phenazopyridine HCl [Pyridium] 200 mg PO TID PRN #6 tablet 08/29/18 LORazepam [Ativan] 1 mg PO Q8HR PRN #20 tablet 09/01/18 Methocarbamol [Robaxin-750] 750 mg PO TID PRN #20 tablet 09/01/18 Oxycodone HCl/Acetaminophen 1 - 2 each PO Q6H PRN #14 tablet 09/01/18 [Percocet 5-325 mg Tablet] Ondansetron Odt [Zofran] 4 mg TL Q6H PRN #10 tablet 09/04/18 Oxycodone HCl/Acetaminophen 1 - 2 each PO Q6H PRN #20 tablet 09/04/18 [Percocet 5-325 mg Tablet] predniSONE [Deltasone] 10 mg PO [id number] #42 tab 09/04/18 LORazepam [Ativan] 1 mg PO BID PRN #14 tablet 09/07/18 Naproxen 375 mg PO BID #15 tablet 09/07/18 Oxybutynin [Ditropan] 5 mg PO BID #10 tablet 09/07/18 Oxycodone HCl/Acetaminophen 1 each PO Q6H PRN #14 tablet 09/07/18 [Percocet 5-325 mg Tablet] Phenazopyridine HCl [Pyridium] 100 mg PO TID #15 tablet 09/07/18 - Allergies Allergies/Adverse Reactions: Allergies Allergy/AdvReac Type Severity Reaction Status Date / Time amoxicillin trihydrate * Allergy Intermediate Emesis, Verified 09/01/18 08:58 [From Augmentin] nausea erythromycin base Allergy Intermediate Emesis, Verified 09/01/18 08:58 [Erythromycin Base] nausea morphine Allergy Intermediate Hallucinati Verified 09/01/18 08:58 ons potassium clavulanate * Allergy Intermediate Emesis, Verified 09/01/18 08:58 [From Augmentin] nausea Sulfa (Sulfonamide Allergy Nausea Verified 09/01/18 08:58 Antibiotics) iodine AdvReac Severe Hives Verified 09/01/18 08:58 ciprofloxacin [From Cipro] AdvReac Nausea Verified 09/01/18 08:58 - Social History Does the pt smoke?: Yes Smoking Status: Current every day smoker Does the pt drink ETOH?: No Does the pt have substance abuse?: No - Immunizations Immunizations are current?: Yes - POLST Patient has POLST: No Departure - Departure Disposition: 01 Home, Self Care Clinical Impression: Lower abdominal pain, Dysuria Condition: Stable Instructions: ED Dysuria Uncertain Cause, ED Abdominal Pain Unkn Cause Follow-Up: Katie Cruz MD [Provider Admit Priv/Credential] - Prescriptions: LORazepam [Ativan] 1 mg PO BID PRN #14 tablet PRN Reason: Anxiety Naproxen 375 mg PO BID #15 tablet Oxybutynin [Ditropan] 5 mg PO BID #10 tablet Oxycodone HCl/Acetaminophen [Percocet 5-325 mg Tablet] 1 each PO Q6H PRN #14 tablet PRN Reason: pain Phenazopyridine HCl [Pyridium] 100 mg PO TID #15 tablet Comments: Stop the prior dicyclomine since it did not seem to be helping. Stay well- hydrated. We will try treating as interstitial cystitis and urethritis with phenazopyridine 3 times a day and naproxen twice daily and add also Ditropan bladder antispasmodic twice daily as well. This combination for the next 5 days or so until you see Dr. Cruz. See if that is been helping. Meanwhile you can use pain medicine as needed. Also use lorazepam twice daily if needed for anxiety. You will need to follow-up with your new primary care doctor Nancy regarding further pain or anxiety medications as this ongoing for these should really be from one provider. <Gabriel Olsen - Last Filed: 09/07/18 23:08> PD HPI ABD PAIN - History obtained from History obtained from: Patient Results - Vitals Vitals: Vital Signs - 24 hr 09/07/18 09/07/18 09/07/18 19:25 19:28 21:28 Temperature 36.6 C 36.6 C Heart Rate 97 97 94 Respiratory 18 18 18 Rate Blood Pressure 142/83 H 142/83 H 154/83 H O2 Saturation 94 94 95 Oxygen O2 Source Room air - Labs Labs: Laboratory Tests 09/07/18 09/07/18 09/07/18 20:06 20:13 20:13 WBC 13.3 H RBC 4.70 Hgb 14.2 Hct 44.3 MCV 94.2 MCH 30.1 MCHC 32.0 RDW 13.9 Plt Count 350 MPV 7.3 L Neut # (Auto) 10.8 H Lymph # (Auto) 1.7 [place] # (Auto) 0.7 Eos # (Auto) 0.0 Baso # (Auto) 0.1 Absolute Nucleated RBC 0.01 Nucleated RBC % 0.0 Sodium 137 Potassium 3.9 Chloride 97 L Carbon Dioxide 29 Anion Gap 11.0 BUN 19 Creatinine 0.8 Estimated GFR (MDRD) 72 L Glucose 196 H Calcium 9.8 Total Bilirubin 0.6 AST 28 ALT 27 Alkaline Phosphatase 86 Total Protein 7.9 Albumin 4.3 Globulin 3.6 Albumin/Globulin Ratio 1.2 Lipase 24 Urine Color YELLOW Urine Clarity HAZY Urine pH 7.0 Ur Specific [place] 1.015 Urine Protein NEGATIVE Urine Glucose (UA) 100 H Urine Ketones NEGATIVE Urine Occult Blood NEGATIVE Urine Nitrite NEGATIVE Urine Bilirubin NEGATIVE Urine Urobilinogen 0.2 (NORMAL) Ur Leukocyte Esterase NEGATIVE Urine RBC 0-5 Urine WBC 0-3 Ur Squamous Epith Cells MANY Squamous H Urine Bacteria Many H Ur Microscopic Review INDICATED Urine Culture Comments NOT INDICATED Departure - Departure Record reviewed to determine appropriate education?: Yes
[2018-09-07] MEDS ORDERED: KETOROLAC 30 MG/ML VIAL IM STA (21:59)
[2018-09-07] MEDS ORDERED: HYDROmorphone 2 MG/ML VIAL IM STA (21:59)
[2018-09-07] MEDS ORDERED: LORazepam 1 MG TABLET PO STA (21:59)
[2018-09-07 23:15] VITALS: BP 132/74
--- NOTE | 2018-09-11 19:59 | ED Physician Documentation ---
PD HPI ABD PAIN - Stated complaint Stated Complaint: FEMALE /NAUSEA - Chief complaint Chief Complaint: Abd Pain - History obtained from History obtained from: Patient - History of Present Illness Quality: Cramping, Aching, Pain Location: Suprapubic, LLQ Radiation: Lower back Improved by: No: BM Worsened by: Eating, Other (urination) Associated symptoms: Nausea, Dysuria. No: Fever, Vomiting, Diarrhea, Constipation, Hematuria Similar symptoms before: No diagnosis Recently seen: Clinic (seen by Urologist with cystoscopy that patient says was normal. And abd CT was normal recently. Has referral for GI, which is not until November or such.) Review of Systems Constitutional: denies: Fever, Myalgias Nose: denies: Rhinorrhea / runny nose, Congestion Throat: denies: Sore throat Respiratory: denies: Cough GI: reports: Abdominal Pain, Nausea. denies: Vomiting, Constipation, Diarrhea : reports: Dysuria, Frequency. 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 HEENT: Tonsil/Adenoidectomy - Present Medications Home Medications: Ambulatory Orders Medication Instructions Recorded Confirmed Propranolol [Inderal] 10 mg ORAL BID 03/04/16 05/15/17 Dicyclomine [Bentyl] 10 mg PO Q8H PRN #20 capsule 05/15/17 Phenazopyridine HCl 200 mg PO TID PRN #10 tablet 11/07/17 Dicyclomine [Bentyl] 10 mg PO QID PRN #20 capsule 08/29/18 Ondansetron Odt [Zofran] 4 mg TL Q6H PRN #10 tablet 08/29/18 Phenazopyridine HCl [Pyridium] 200 mg PO TID PRN #6 tablet 08/29/18 LORazepam [Ativan] 1 mg PO Q8HR PRN #20 tablet 09/01/18 Methocarbamol [Robaxin-750] 750 mg PO TID PRN #20 tablet 09/01/18 Oxycodone HCl/Acetaminophen 1 - 2 each PO Q6H PRN #14 tablet 09/01/18 [Percocet 5-325 mg Tablet] Ondansetron Odt [Zofran] 4 mg TL Q6H PRN #10 tablet 09/04/18 Oxycodone HCl/Acetaminophen 1 - 2 each PO Q6H PRN #20 tablet 09/04/18 [Percocet 5-325 mg Tablet] predniSONE [Deltasone] 10 mg PO [id number] #42 tab 09/04/18 LORazepam [Ativan] 1 mg PO BID PRN #14 tablet 09/07/18 Naproxen 375 mg PO BID #15 tablet 09/07/18 Oxybutynin [Ditropan] 5 mg PO BID #10 tablet 09/07/18 Oxycodone HCl/Acetaminophen 1 each PO Q6H PRN #14 tablet 09/07/18 [Percocet 5-325 mg Tablet] Phenazopyridine HCl [Pyridium] 100 mg PO TID #15 tablet 09/07/18 - Allergies Allergies/Adverse Reactions: Allergies Allergy/AdvReac Type Severity Reaction Status Date / Time amoxicillin trihydrate * Allergy Intermediate Emesis, Verified 09/01/18 08:58 [From Augmentin] nausea erythromycin base Allergy Intermediate Emesis, Verified 09/01/18 08:58 [Erythromycin Base] nausea morphine Allergy Intermediate Hallucinati Verified 09/01/18 08:58 ons potassium clavulanate * Allergy Intermediate Emesis, Verified 09/01/18 08:58 [From Augmentin] nausea Sulfa (Sulfonamide Allergy Nausea Verified 09/01/18 08:58 Antibiotics) iodine AdvReac Severe Hives Verified 09/01/18 08:58 ciprofloxacin [From Cipro] AdvReac Nausea Verified 09/01/18 08:58 - Social History Does the pt smoke?: Yes Smoking Status: Current every day smoker Does the pt drink ETOH?: No Does the pt have substance abuse?: No - Immunizations Immunizations are current?: Yes - POLST Patient has POLST: No PD ED PE NORMAL - Vitals Vital signs reviewed: Yes - General General: Alert and oriented X 3, Well developed/nourished, Other (appears in pain with lower abd cramping. ) - Neck Neck: Supple, no meningeal sign, No adenopathy - Cardiac Cardiac: RRR, No murmur - Respiratory Respiratory: Clear bilaterally - Abdomen Abdomen: Normal bowel sounds, Soft, Non distended, No organomegaly, Other (tender in suprapubic area without distension nor fullness. Bowel sounds increased. ) - Female Female : Deferred - Rectal Rectal: Deferred - Derm Derm: Normal color, Warm and dry - Neuro Neuro: Alert and oriented X 3, No motor deficit, Normal speech Results - Vitals Vitals: Oxygen O2 Source Room air - Labs Labs: Laboratory Tests 09/07/18 09/07/18 09/07/18 20:06 20:13 20:13 WBC 13.3 H RBC 4.70 Hgb 14.2 Hct 44.3 MCV 94.2 MCH 30.1 MCHC 32.0 RDW 13.9 Plt Count 350 MPV 7.3 L Neut # (Auto) 10.8 H Lymph # (Auto) 1.7 [place] # (Auto) 0.7 Eos # (Auto) 0.0 Baso # (Auto) 0.1 Absolute Nucleated RBC 0.01 Nucleated RBC % 0.0 Sodium 137 Potassium 3.9 Chloride 97 L Carbon Dioxide 29 Anion Gap 11.0 BUN 19 Creatinine 0.8 Estimated GFR (MDRD) 72 L Glucose 196 H Calcium 9.8 Total Bilirubin 0.6 AST 28 ALT 27 Alkaline Phosphatase 86 Total Protein 7.9 Albumin 4.3 Globulin 3.6 Albumin/Globulin Ratio 1.2 Lipase 24 Urine Color YELLOW Urine Clarity HAZY Urine pH 7.0 Ur Specific [place] 1.015 Urine Protein NEGATIVE Urine Glucose (UA) 100 H Urine Ketones NEGATIVE Urine Occult Blood NEGATIVE Urine Nitrite NEGATIVE Urine Bilirubin NEGATIVE Urine Urobilinogen 0.2 (NORMAL) Ur Leukocyte Esterase NEGATIVE Urine RBC 0-5 Urine WBC 0-3 Ur Squamous Epith Cells MANY Squamous H Urine Bacteria Many H Ur Microscopic Review INDICATED Urine Culture Comments NOT INDICATED PD MEDICAL DECISION MAKING - ED course Complexity details: considered differential (does not seem like IBS with primarily dysuria and urinary pressure symptoms. Had CT abd recently without positive finding. Has feeling of urinary urgency, with post-void residual of only 50 ml. UA negative. Consider bladder spasms with interstitial cystitis. ), d/w patient Departure - Departure Disposition: 01 Home, Self Care Clinical Impression: Lower abdominal pain, Dysuria Condition: Stable Instructions: ED Abdominal Pain Unkn Cause, ED Dysuria Uncertain Cause Follow-Up: Katie Cruz MD [Provider Admit Priv/Credential] - Prescriptions: LORazepam [Ativan] 1 mg PO BID PRN #14 tablet PRN Reason: Anxiety Naproxen 375 mg PO BID #15 tablet Oxybutynin [Ditropan] 5 mg PO BID #10 tablet Oxycodone HCl/Acetaminophen [Percocet 5-325 mg Tablet] 1 each PO Q6H PRN #14 tablet PRN Reason: pain Phenazopyridine HCl [Pyridium] 100 mg PO TID #15 tablet Comments: Stop the prior dicyclomine since it did not seem to be helping. Stay well- hydrated. We will try treating as interstitial cystitis and urethritis with phenazopyridine 3 times a day and naproxen twice daily and add also Ditropan bladder antispasmodic twice daily as well. This combination for the next 5 days or so until you see Dr. Cruz. See if that is been helping. Meanwhile you can use pain medicine as needed. Also use lorazepam twice daily if needed for anxiety. You will need to follow-up with your new primary care doctor Nancy regarding further pain or anxiety medications as this ongoing for these should really be from one provider. Discharge Date/Time: 09/07/18 23:24
== END 2018-09-07 23:24 | disposition home or self-care (01) ==
LOC: ED 19:17
DX: R10.32 Left lower quadrant pain (principal); R30.0 Dysuria; I10 Essential (primary) hypertension; F17.200 Nicotine dependence, unspecified, uncomplicated
CPT/HCPCS: 36415; 51798; 80053; 81001; 83690; 85025; 96372; 99283; J1170; J8499; 81003; 87086

== ENCOUNTER 2018-09-11 21:11 | Emergency (ER) | payer MEDICARE, OTHER ==
--- NOTE | 2018-09-11 21:17 | ED Physician Documentation ---
History of Present Illness - Stated complaint Stated Complaint: FEMALE - History obtained from History obtained from: Patient - Additonal information Additional information: Patient is a 68-year-old female with complicated past medical history well-known to the ED presenting with acute on chronic cystitis-like complaints. Patient likely has been experiencing interstitial cystitis symptoms. Patient was last seen in the ED 5 days ago with work-up and discharged home with multiple prescriptions including chronic pain prescriptions, Pyridium, benzodiazepines, and others. Patient reports that she is now out of these medications already. Patient sees her primary care physician in 2 days. Patient also reports that she has had extensive urological work-up without particular findings, as well as GI work-up including CT scans and colonoscopy the return rather unremarkable except for diverticulosis changes. Patient denies changes in her usual symptoms such as new fever, vomiting, abdominal pain, or other concerns. Patient desc ribes pelvic pressure and dysuria. No other improving or worsening factors noted. Review of Systems Constitutional: denies: Fever GI: denies: Abdominal Pain : reports: Dysuria PD PAST MEDICAL HISTORY - Past Medical History Cardiovascular: Hypertension, High cholesterol Respiratory: None Neuro: None Endocrine/Autoimmune: None GI: Chronic diarrhea, Other : None HEENT: None Psych: Anxiety Musculoskeletal: Fibromyalgia, Chronic back pain Derm: None - Past Surgical History Past Surgical History: Yes General: Bowel surgery, Colonoscopy /RN CLINICAL QUALITY: section HEENT: Tonsil/Adenoidectomy - Present Medications Home Medications: Ambulatory Orders Medication Instructions Recorded Confirmed Propranolol [Inderal] 10 mg ORAL BID 03/04/16 05/15/17 Dicyclomine [Bentyl] 10 mg PO Q8H PRN #20 capsule 05/15/17 Phenazopyridine HCl 200 mg PO TID PRN #10 tablet 11/07/17 Dicyclomine [Bentyl] 10 mg PO QID PRN #20 capsule 08/29/18 Ondansetron Odt [Zofran] 4 mg TL Q6H PRN #10 tablet 08/29/18 Phenazopyridine HCl [Pyridium] 200 mg PO TID PRN #6 tablet 08/29/18 LORazepam [Ativan] 1 mg PO Q8HR PRN #20 tablet 09/01/18 Methocarbamol [Robaxin-750] 750 mg PO TID PRN #20 tablet 09/01/18 Oxycodone HCl/Acetaminophen 1 - 2 each PO Q6H PRN #14 tablet 09/01/18 [Percocet 5-325 mg Tablet] Ondansetron Odt [Zofran] 4 mg TL Q6H PRN #10 tablet 09/04/18 Oxycodone HCl/Acetaminophen 1 - 2 each PO Q6H PRN #20 tablet 09/04/18 [Percocet 5-325 mg Tablet] predniSONE [Deltasone] 10 mg PO [id number] #42 tab 09/04/18 LORazepam [Ativan] 1 mg PO BID PRN #14 tablet 09/07/18 Naproxen 375 mg PO BID #15 tablet 09/07/18 Oxybutynin [Ditropan] 5 mg PO BID #10 tablet 09/07/18 Oxycodone HCl/Acetaminophen 1 each PO Q6H PRN #14 tablet 09/07/18 [Percocet 5-325 mg Tablet] Phenazopyridine HCl [Pyridium] 100 mg PO TID #15 tablet 09/07/18 Cephalexin [Keflex] 500 mg PO BID #14 capsule 09/11/18 - Allergies Allergies/Adverse Reactions: Allergies Allergy/AdvReac Type Severity Reaction Status Date / Time amoxicillin trihydrate * Allergy Intermediate Emesis, Verified 09/01/18 08:58 [From Augmentin] nausea erythromycin base Allergy Intermediate Emesis, Verified 09/01/18 08:58 [Erythromycin Base] nausea morphine Allergy Intermediate Hallucinati Verified 09/01/18 08:58 ons potassium clavulanate * Allergy Intermediate Emesis, Verified 09/01/18 08:58 [From Augmentin] nausea Sulfa (Sulfonamide Allergy Nausea Verified 09/01/18 08:58 Antibiotics) iodine AdvReac Severe Hives Verified 09/01/18 08:58 ciprofloxacin [From Cipro] AdvReac Nausea Verified 09/01/18 08:58 - Social History Does the pt smoke?: Yes Smoking Status: Current every day smoker Does the pt drink ETOH?: No Does the pt have substance abuse?: No - Immunizations Immunizations are current?: Yes - POLST Patient has POLST: No PD ED PE NORMAL - Vitals Vital signs reviewed: Yes (Hypertensive, but history of such and anxious) - General General: Alert and oriented X 3, No acute distress, Well developed/nourished - HEENT HEENT: Atraumatic - Cardiac Cardiac: RRR, No murmur - Respiratory Respiratory: No respiratory distress, Clear bilaterally - Abdomen Abdomen: Normal bowel sounds, Soft, Non tender, Non distended - Derm Derm: Normal color, Warm and dry, No rash - Extremities Extremities: No deformity, No tenderness to palpate - Neuro Neuro: No motor deficit, No sensory deficit - Psych Psych: Other (Slightly histrionic) Results - Vitals Vitals: Vital Signs - 24 hr 09/11/18 21:19 Temperature 36.7 C Heart Rate 105 H Respiratory 18 Rate Blood Pressure 183/99 H O2 Saturation 96 Oxygen O2 Source Room air - Labs Labs: Laboratory Tests 09/11/18 21:21 Urine Color ORANGE Urine Clarity HAZY Urine pH 7.5 Ur Specific [place] 1.010 Urine Protein NEGATIVE Urine Glucose (UA) NEGATIVE Urine Ketones NEGATIVE Urine Occult Blood NEGATIVE Urine Nitrite POSITIVE H Urine Bilirubin NEGATIVE Urine Urobilinogen 1 (NORMAL) Ur Leukocyte Esterase TRACE H Urine RBC None Seen Urine WBC 0-3 Ur Squamous Epith Cells FEW Squamous Amorphous Sediment Moderate Urine Bacteria Moderate H Ur Microscopic Review INDICATED Urine Culture Comments INDICATED PD MEDICAL DECISION MAKING - ED course Complexity details: reviewed old records, reviewed results, re-evaluated patient, considered differential, d/w patient, d/w family ED course: This is the patient's fifth visit this month for similar symptoms. Feel the patient is experiencing acute on chronic issues related to her underlying cystitis. Patient has had extensive work-ups both in the ER, as well as with GI and urology. Patient has follow-up with primary care physician later this week. Patient received multiple prescriptions just 5 days ago including Ativan, naproxen, oxybutynin, Percocets, and Pyridium's. Do not feel it is appropriate to refill prescriptions at this time, particularly narcotics, although that is what patient is requesting. Instead, offered Toradol and obtain urine sample for further evaluation. Do not feel that patient requires imaging or other invasive testing at this time, but reviewed lab work from several days ago which revealed mild leukocytosis, creatinine within normal limits, negative urinalysi s. Today's urine sample did indicate infection and feel this UTI could be causing patient's worsening symptoms. Prescribed first dose of antibiotic in the ED and otherwise feel the patient is safe to discharge home with oral antibiotics, supportive cares, close follow-up. Patient and family voiced understanding and are comfortable with discharge plan. Departure - Departure Disposition: 01 Home, Self Care Clinical Impression: Urinary tract infection Qualifiers: Urinary tract infection type: site unspecified Hematuria presence: without hematuria Qualified Code(s): N39.0 - Urinary tract infection, site not specified Condition: Good Instructions: ED UTI Cystitis Female Follow-Up: Katie Cruz MD [Primary Care Provider] - Within 3 Days Prescriptions: Cephalexin [Keflex] 500 mg PO BID #14 capsule Comments: Please continue to use home medications as previously instructed. Please use antibiotic as instructed to treat bladder infection. Please follow-up with your primary care physician as scheduled later this week. You may call their office to see if you can move up your appointment. Return to ED sooner if experience worsening symptoms or other concerns.
[2018-09-11] MEDS ORDERED: KETOROLAC 60 MG/2 ML VIAL IM STA (21:22)
[2018-09-11 21:31] LABS: BILIRUBIN,URINE NEGATIVE (NEGATIVE); GLUCOSE, URINE (UA) NEGATIVE (NEGATIVE); KETONES,URINE (UA) NEGATIVE (NEGATIVE); LEUKOCYTE ESTERASE, URINE TRACE (NEGATIVE); NITRITE,URINE POSITIVE (NEGATIVE); OCCULT BLOOD,URINE NEGATIVE (NEGATIVE); PH,URINE 7.5 PH (5.0-7.5); PROTEIN,URINE NEGATIVE (NEGATIVE); UROBILINOGEN,URINE 1 (NORMAL) E.U./dL (NORMAL)
[2018-09-11 21:39] LABS: CLARITY,URINE HAZY (CLEAR)
[2018-09-11 21:40] LABS: AMORPHOUS SEDIMENT,UR Moderate /LPF; BACTERIA,URINE Moderate /HPF (None Seen); RBC,URINE None Seen /HPF (0-5); SQUAMOUS EPITHELIAL CELL,UR FEW Squamous (<= Few)
[2018-09-11] MEDS ORDERED: cephALEXin 250 MG CAPSULE PO STA (21:51)
[2018-09-11 22:01] VITALS: BP 150/81
== END 2018-09-11 22:06 | disposition home or self-care (01) ==
LOC: ED 21:11
DX: N39.0 Urinary tract infection, site not specified (principal); I10 Essential (primary) hypertension; F17.200 Nicotine dependence, unspecified, uncomplicated
CPT/HCPCS: 81001; 87086; 87181; 96372; 99283; A9270; 81003

== ENCOUNTER 2018-09-29 03:42 | Emergency (ER) | payer MEDICARE, OTHER ==
[2018-09-29] MEDS ORDERED: oxyCODONE 5 MG TABLET PO STA (05:08)
--- NOTE | 2018-09-29 05:09 | ED Physician Documentation ---
History of Present Illness - Stated complaint Stated Complaint: FEMALE , SWELLING - Chief complaint Chief Complaint: General - History obtained from History obtained from: Patient - History of Present Illness Timing: How many days ago (3) Pain level now: 8 Improved by: rest Worsened by: movement - Additonal information Additional information: c/o 3 days of generalized myalgias, swelling and stiffness in fingers (both hands), both hips, back (particularly right-sided). she was T+R from this ED 5 times last month, prescriptions included ativan, percocet, robaxin, prednisone, naproxen, ditropan, pyridium and, most recently, keflex. Review of Systems Constitutional: reports: Myalgias. denies: Fever, Chills, Sweats Cardiac: reports: Reviewed and negative Respiratory: reports: Reviewed and negative GI: denies: Abdominal Pain, Nausea, Vomiting : reports: Dysuria, Frequency Musculoskeletal: reports: Back pain, Extremity pain Neurologic: denies: Focal weakness, Numbness PD PAST MEDICAL HISTORY - Past Medical History Past Medical History: Yes Cardiovascular: Hypertension, High cholesterol Respiratory: None Neuro: None Endocrine/Autoimmune: None GI: Chronic diarrhea, Other : None HEENT: None Psych: Anxiety Musculoskeletal: Fibromyalgia, Chronic back pain Derm: None - Past Surgical History Past Surgical History: Yes General: 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 surgery, 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 HEENT: Tonsil/Adenoidectomy - Present Medications Home Medications: Ambulatory Orders Medication Instructions Recorded Confirmed Propranolol [Inderal] 10 mg ORAL BID 03/04/16 05/15/17 Dicyclomine [Bentyl] 10 mg PO Q8H PRN #20 capsule 05/15/17 Phenazopyridine HCl 200 mg PO TID PRN #10 tablet 11/07/17 Dicyclomine [Bentyl] 10 mg PO QID PRN #20 capsule 08/29/18 Ondansetron Odt [Zofran] 4 mg TL Q6H PRN #10 tablet 08/29/18 Phenazopyridine HCl [Pyridium] 200 mg PO TID PRN #6 tablet 08/29/18 LORazepam [Ativan] 1 mg PO Q8HR PRN #20 tablet 09/01/18 Methocarbamol [Robaxin-750] 750 mg PO TID PRN #20 tablet 09/01/18 Oxycodone HCl/Acetaminophen 1 - 2 each PO Q6H PRN #14 tablet 09/01/18 [Percocet 5-325 mg Tablet] Ondansetron Odt [Zofran] 4 mg TL Q6H PRN #10 tablet 09/04/18 Oxycodone HCl/Acetaminophen 1 - 2 each PO Q6H PRN #20 tablet 09/04/18 [Percocet 5-325 mg Tablet] predniSONE [Deltasone] 10 mg PO [id number] #42 tab 09/04/18 LORazepam [Ativan] 1 mg PO BID PRN #14 tablet 09/07/18 Naproxen 375 mg PO BID #15 tablet 09/07/18 Oxybutynin [Ditropan] 5 mg PO BID #10 tablet 09/07/18 Oxycodone HCl/Acetaminophen 1 each PO Q6H PRN #14 tablet 09/07/18 [Percocet 5-325 mg Tablet] Phenazopyridine HCl [Pyridium] 100 mg PO TID #15 tablet 09/07/18 Cephalexin [Keflex] 500 mg PO BID #14 capsule 09/11/18 - Allergies Allergies/Adverse Reactions: Allergies Allergy/AdvReac Type Severity Reaction Status Date / Time amoxicillin trihydrate * Allergy Intermediate Emesis, Verified 09/01/18 08:58 [From Augmentin] nausea erythromycin base Allergy Intermediate Emesis, Verified 09/01/18 08:58 [Erythromycin Base] nausea morphine Allergy Intermediate Hallucinati Verified 09/01/18 08:58 ons potassium clavulanate * Allergy Intermediate Emesis, Verified 09/01/18 08:58 [From Augmentin] nausea Sulfa (Sulfonamide Allergy Nausea Verified 09/01/18 08:58 Antibiotics) iodine AdvReac Severe Hives Verified 09/01/18 08:58 ciprofloxacin [From Cipro] AdvReac Nausea Verified 09/01/18 08:58 - Social History Does the pt smoke?: Yes Smoking Status: Current every day smoker Does the pt drink ETOH?: No Does the pt have substance abuse?: No - Immunizations Immunizations are current?: Yes - POLST Patient has POLST: No PD ED PE NORMAL - Vitals Vital signs reviewed: Yes - General General: Alert and oriented X 3, Well developed/nourished, Other (waxing and waning anxiety during H+P) - HEENT HEENT: Moist mucous membranes - Neck Neck: Supple, no meningeal sign - Cardiac Cardiac: RRR, No murmur - Respiratory Respiratory: No respiratory distress, Clear bilaterally - Abdomen Abdomen: Soft, Non tender - Back Back: No CVA TTP - Derm Derm: Normal color, Warm and dry - Extremities Extremities: No deformity, No tenderness to palpate, Normal ROM s pain, No edema - Neuro Neuro: Alert and oriented X 3, auto suspension and steering mechanic 2-12 intact, No motor deficit, No sensory deficit, Normal speech Results - Vitals Vitals: Oxygen O2 Source Room air - Labs Labs: Laboratory Tests 09/29/18 09/29/18 09/29/18 05:20 05:55 05:55 WBC 4.3 L RBC 3.84 L Hgb 12.2 Hct 36.7 L MCV 95.4 MCH 31.7 H MCHC 33.2 RDW 14.8 Plt Count 282 MPV 6.7 L Neut # (Auto) 2.4 Lymph # (Auto) 1.4 L [place] # (Auto) 0.4 Eos # (Auto) 0.1 Baso # (Auto) 0.0 Absolute Nucleated RBC 0.01 Nucleated RBC % 0.1 Sodium 140 Potassium 4.0 Chloride 102 Carbon Dioxide 26 Anion Gap 12.0 BUN 6 Creatinine 0.7 Estimated GFR (MDRD) 84 L Glucose 159 H Calcium 9.4 B-Natriuretic Peptide Urine Color YELLOW Urine Clarity CLEAR Urine pH 7.0 Ur Specific [place] 1.010 Urine Protein NEGATIVE Urine Glucose (UA) NEGATIVE Urine Ketones NEGATIVE Urine Occult Blood NEGATIVE Urine Nitrite NEGATIVE Urine Bilirubin NEGATIVE Urine Urobilinogen 0.2 (NORMAL) Ur Leukocyte Esterase NEGATIVE Ur Microscopic Review NOT INDICATED Urine Culture Comments NOT INDICATED 09/29/18 05:55 WBC RBC Hgb Hct MCV MCH MCHC RDW Plt Count MPV Neut # (Auto) Lymph # (Auto) [place] # (Auto) Eos # (Auto) Baso # (Auto) Absolute Nucleated RBC Nucleated RBC % Sodium Potassium Chloride Carbon Dioxide Anion Gap BUN Creatinine Estimated GFR (MDRD) Glucose Calcium B-Natriuretic Peptide 36 Urine Color Urine Clarity Urine pH Ur Specific [place] Urine Protein Urine Glucose (UA) Urine Ketones Urine Occult Blood Urine Nitrite Urine Bilirubin Urine Urobilinogen Ur Leukocyte Esterase Ur Microscopic Review Urine Culture Comments PD MEDICAL DECISION MAKING - ED course Complexity details: reviewed old records, reviewed results, re-evaluated patient, considered differential, d/w patient ED course: UA normal and reassuring blood tests at this time. MC indicates that she filled prescriptions for lorazepam and oxycodone 2 weeks ago (09/13) from PMD. She tells me that the prescription is for up to 3 tablets per day but that she has had better results with the doses as written from the ED (she indicates these were for 1-2 tablets per dose). I explained to her that the dose and schedule/timing of doses of her chronic medications (such as oxycodone and lorazepam) need to be d/w and determined by her prescribing physician and not by the emergency department. She was given 1 dose of oxycodone 5mg in ED; I reviewed test results with her and explained that further emergent testing and/or treatment is not indicated at this time. Departure - Departure Disposition: 01 Home, Self Care Clinical Impression: Generalized muscle ache Condition: Good Instructions: ED Acute Pain [facility] Follow-Up: Katie Cruz MD [Primary Care Provider] - Discharge Date/Time: 09/29/18 07:45
[2018-09-29 05:42] LABS: BILIRUBIN,URINE NEGATIVE (NEGATIVE); GLUCOSE, URINE (UA) NEGATIVE (NEGATIVE); KETONES,URINE (UA) NEGATIVE (NEGATIVE); LEUKOCYTE ESTERASE, URINE NEGATIVE (NEGATIVE); NITRITE,URINE NEGATIVE (NEGATIVE); OCCULT BLOOD,URINE NEGATIVE (NEGATIVE); PROTEIN,URINE NEGATIVE (NEGATIVE); UROBILINOGEN,URINE 0.2 (NORMAL) E.U./dL (NORMAL)
[2018-09-29 05:59] LABS: CLARITY,URINE CLEAR (CLEAR)
[2018-09-29 06:11] LABS: BASOPHILS % (AUTO) 0.6 %; EOSINOPHILS # (AUTO) 0.1 10^3/uL (0.0-0.7); EOSINOPHILS % (AUTO) 2.6 %; HGB - HEMOGLOBIN 12.2 g/dL (12.0-16.0); LYMPHOCYTES # (AUTO) 1.4 10^3/uL (1.5-3.5); LYMPHOCYTES % (AUTO) 31.5 %; MEAN CORPUSCULAR HEMOGLOBIN 31.7 pg (27.0-31.0); MEAN CORPUSCULAR HGB CONC 33.2 g/dL (32.0-36.0); MEAN CORPUSCULAR VOLUME 95.4 fL (81.0-99.0); MEAN PLATELET VOLUME 6.7 fL (7.9-10.8); MONOCYTES # (AUTO) 0.4 10^3/uL (0.0-1.0); MONOCYTES % (AUTO) 9.4 %; NEUTROPHILS # (AUTO) 2.4 10^3/uL (1.5-6.6); NEUTROPHILS % (AUTO) 55.9 %; PLT - PLATELET COUNT 282 10^3/uL (130-450); RED BLOOD COUNT 3.84 10^6/uL (4.20-5.40); RED CELL DISTRIBUTION WIDTH 14.8 % (12.0-15.0); WHITE BLOOD COUNT 4.3 x10^3/uL (4.8-10.8)
[2018-09-29 06:21] LABS: CALCIUM 9.4 mg/dL (8.5-10.3); CREATININE 0.7 mg/dL (0.4-1.0)
[2018-09-29 07:33] VITALS: BP 147/88
== END 2018-09-29 07:45 | disposition home or self-care (01) ==
LOC: ED 03:42
DX: M79.7 Fibromyalgia (principal); I10 Essential (primary) hypertension; M54.9 Dorsalgia, unspecified; G89.29 Other chronic pain; F41.9 Anxiety disorder, unspecified; F17.200 Nicotine dependence, unspecified, uncomplicated; R10.2 Pelvic and perineal pain
CPT/HCPCS: 36415; 76830; 76856; 80048; 81003; 83880; 85025; 99283; A9270; 81001; 87086

== ENCOUNTER 2018-09-29 12:58 | Outpatient (CLI) | payer MEDICARE, OTHER ==
--- NOTE | 2018-09-30 | Ultrasound Report ---
Reason: PELVIC PAIN,ACUTE Procedure Date: 09/29/2018 Accession Number: [id number] / [id number] Procedure: US - Pelvic w/Transvaginal CPT Code: FULL RESULT: EXAM: PELVIC ULTRASOUND EXAM DATE: 09/29/2018 01:38 PM. CLINICAL HISTORY: Pelvic pain, acute. COMPARISON: None. TECHNIQUE: Realtime transabdominal pelvic scan performed to identify the uterus and adnexa and as an overview of other pelvic structures, followed by transvaginal scan to provide greater detail of the uterus and adnexa, with static image documentation. FINDINGS: Uterus: 7.7 x 2.7 x 3.8 cm, volume 41 cc. Anteverted position. Normal overall size and echotexture. Masses: None. Endometrium: 4 mm. Normal. Cervix: No mass. There are multiple echogenic foci noted in the cervix most compatible with calcifications. Right Ovary: Ovary not seen. No adnexal abnormality. Limitation secondary to bowel gas. Left Ovary: Ovary not seen. No adnexal abnormality. Limitation secondary to bowel gas. Free Fluid: None. Other: Study limited due to body habitus and inability to void. IMPRESSION: 1. Technically limited study due to body habitus. 2. No uterine mass. 3. No endometrial mass or polyp. No cervical mass lesion. Multiple cervical calcifications are present. 4. Neither ovary seen. No adnexal abnormalities. [facility]
== END 2018-09-29 12:59 | disposition home or self-care (01) ==
LOC: DI 12:58
PROVIDERS: ATTEND Nurse Practitioner Obstetrics & Gynecology
DX: R10.2 Pelvic and perineal pain (principal)
CPT/HCPCS: 76830; 76856

== ENCOUNTER 2018-11-28 06:35 | Emergency (ER) | payer MEDICARE, OTHER ==
[2018-11-28] MEDS ORDERED: ONDANSETRON 4 MG/2 ML VIAL IVP STA ×2 (06:55→10:34)
[2018-11-28] MEDS ORDERED: fentaNYL 100 MCG/2 ML VIAL IVP STA (06:56)
[2018-11-28 07:02] LABS: BASOPHILS % (AUTO) 0.4 %; EOSINOPHILS # (AUTO) 0.1 10^3/uL (0.0-0.7); HGB - HEMOGLOBIN 14.4 g/dL (12.0-16.0); LYMPHOCYTES # (AUTO) 2.6 10^3/uL (1.5-3.5); LYMPHOCYTES % (AUTO) 24.8 %; MEAN CORPUSCULAR HEMOGLOBIN 31.3 pg (27.0-31.0); MEAN CORPUSCULAR HGB CONC 32.4 g/dL (32.0-36.0); MEAN CORPUSCULAR VOLUME 96.5 fL (81.0-99.0); MEAN PLATELET VOLUME 9.6 fL (7.9-10.8); MONOCYTES # (AUTO) 0.9 10^3/uL (0.0-1.0); MONOCYTES % (AUTO) 8.3 %; NEUTROPHILS # (AUTO) 6.9 10^3/uL (1.5-6.6); NEUTROPHILS % (AUTO) 65.1 %; PLT - PLATELET COUNT 342 10^3/uL (130-450); RED CELL DISTRIBUTION WIDTH 12.8 % (12.0-15.0); WHITE BLOOD COUNT 10.6 x10^3/uL (4.8-10.8)
[2018-11-28 07:26] LABS: ALBUMIN 4.2 g/dL (3.2-5.5); BILIRUBIN,TOTAL 0.3 mg/dL (0.2-1.0); CALCIUM 9.9 mg/dL (8.5-10.3); CREATININE 0.9 mg/dL (0.4-1.0); TOTAL PROTEIN 8.5 g/dL (6.7-8.2)
--- NOTE | 2018-11-28 07:42 | ED Physician Documentation ---
History of Present Illness - Stated complaint Stated Complaint: ABD PX/DIARRHEA - Chief complaint Chief Complaint: Abd Pain - History obtained from History obtained from: Patient - History of Present Illness Timing: How many days ago (several days) Pain level max: 5 Pain level now: 4 - Additonal information Additional information: 68-year-old female presents to the emergency department with diarrhea for the past 4 days. She was recently started on cephalexin and Flagyl by her GI doctor at [facility]. She states that she is not sure why she was put on this medication. She states that she believes she has a UTI as well. Diarrhea is 4-5 times a day. Loose. No fevers. Has diffuse abdominal pain, but this is similar to her chronic pain. Worse with movement and better with rest. Review of Systems Ten Systems: 10 systems reviewed and negative Constitutional: denies: Fever, Chills Nose: denies: Rhinorrhea / runny nose, Congestion Respiratory: denies: Cough GI: reports: Abdominal Pain (diffuse, crampy), Nausea, Diarrhea. 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 HEENT: Tonsil/Adenoidectomy - Present Medications Home Medications: Ambulatory Orders Medication Instructions Recorded Confirmed Propranolol [Inderal] 10 mg ORAL BID 03/04/16 05/15/17 Dicyclomine [Bentyl] 10 mg PO Q8H PRN #20 capsule 05/15/17 Phenazopyridine HCl 200 mg PO TID PRN #10 tablet 11/07/17 Dicyclomine [Bentyl] 10 mg PO QID PRN #20 capsule 08/29/18 Ondansetron Odt [Zofran] 4 mg TL Q6H PRN #10 tablet 08/29/18 Phenazopyridine HCl [Pyridium] 200 mg PO TID PRN #6 tablet 08/29/18 LORazepam [Ativan] 1 mg PO Q8HR PRN #20 tablet 09/01/18 Methocarbamol [Robaxin-750] 750 mg PO TID PRN #20 tablet 09/01/18 Oxycodone HCl/Acetaminophen 1 - 2 each PO Q6H PRN #14 tablet 09/01/18 [Percocet 5-325 mg Tablet] Ondansetron Odt [Zofran] 4 mg TL Q6H PRN #10 tablet 09/04/18 Oxycodone HCl/Acetaminophen 1 - 2 each PO Q6H PRN #20 tablet 09/04/18 [Percocet 5-325 mg Tablet] predniSONE [Deltasone] 10 mg PO [id number] #42 tab 09/04/18 LORazepam [Ativan] 1 mg PO BID PRN #14 tablet 09/07/18 Naproxen 375 mg PO BID #15 tablet 09/07/18 Oxybutynin [Ditropan] 5 mg PO BID #10 tablet 09/07/18 Oxycodone HCl/Acetaminophen 1 each PO Q6H PRN #14 tablet 09/07/18 [Percocet 5-325 mg Tablet] Phenazopyridine HCl [Pyridium] 100 mg PO TID #15 tablet 09/07/18 Cephalexin [Keflex] 500 mg PO BID #14 capsule 09/11/18 Hyoscyamine Sulfate [Levsin-Sl] 0.125 mg SL Q6H PRN #14 tab.subl 11/28/18 Meloxicam [Mobic] 15 mg PO DAILY PRN #20 tablet 11/28/18 Ondansetron Odt [Zofran] 4 mg TL Q6H PRN #10 tablet 11/28/18 - Allergies Allergies/Adverse Reactions: Allergies Allergy/AdvReac Type Severity Reaction Status Date / Time amoxicillin trihydrate * Allergy Intermediate Emesis, Verified 11/28/18 06:45 [From Augmentin] nausea erythromycin base Allergy Intermediate Emesis, Verified 11/28/18 06:45 [Erythromycin Base] nausea morphine Allergy Intermediate Hallucinati Verified 11/28/18 06:45 ons potassium clavulanate * Allergy Intermediate Emesis, Verified 11/28/18 06:45 [From Augmentin] nausea Sulfa (Sulfonamide Allergy Nausea Verified 11/28/18 06:45 Antibiotics) iodine AdvReac Severe Hives Verified 11/28/18 06:45 ciprofloxacin [From Cipro] AdvReac Nausea Verified 11/28/18 06:45 - Social History Does the pt smoke?: Yes Smoking Status: Current every day smoker Does the pt drink ETOH?: No Does the pt have substance abuse?: No - Immunizations Immunizations are current?: Yes - POLST Patient has POLST: No PD ED PE NORMAL - Vitals Vital signs reviewed: Yes - General General: Alert and oriented X 3, No acute distress, Well developed/nourished - HEENT HEENT: PERRL, Other (Dry lips) - Neck Neck: Supple, no meningeal sign - Cardiac Cardiac: RRR, Strong equal pulses - Respiratory Respiratory: No respiratory distress, Clear bilaterally - Abdomen Abdomen: Soft, Non distended, Other (Mild diffuse tender palpation. No peritoneal signs) - Derm Derm: Warm and dry, No rash - Extremities Extremities: No edema - Neuro Neuro: Alert and oriented X 3 - Psych Psych: Normal mood, Normal affect Results - Vitals Vitals: Vital Signs - 24 hr 11/28/18 11/28/18 11/28/18 06:41 09:08 11:09 Temperature 36.8 C Heart Rate 91 82 79 Respiratory 22 16 16 Rate Blood Pressure 145/102 H 118/59 L 118/55 L O2 Saturation 95 94 95 Oxygen O2 Source Room air - Labs Labs: Microbiology 11/28/18 09:48 Campylobacter Antigen Assay - Final Stool Laboratory Tests 11/28/18 11/28/18 11/28/18 06:52 06:52 09:48 WBC 10.6 RBC 4.60 Hgb 14.4 Hct 44.4 MCV 96.5 MCH 31.3 H MCHC 32.4 RDW 12.8 Plt Count 342 MPV 9.6 Neut # (Auto) 6.9 H Lymph # (Auto) 2.6 [place] # (Auto) 0.9 Eos # (Auto) 0.1 Baso # (Auto) 0.0 Absolute Nucleated RBC 0.00 Nucleated RBC % 0.0 Sodium 142 Potassium 3.9 Chloride 101 Carbon Dioxide 28 Anion Gap 13.0 BUN 10 Creatinine 0.9 Estimated GFR (MDRD) 63 L Glucose 158 H Calcium 9.9 Total Bilirubin 0.3 AST 34 ALT 23 Alkaline Phosphatase 74 Total Protein 8.5 H Albumin 4.2 Globulin 4.3 H Albumin/Globulin Ratio 1.0 Lipase 22 Urine Color Urine Clarity Urine pH Ur Specific [place] Urine Protein Urine Glucose (UA) Urine Ketones Urine Occult Blood Urine Nitrite Urine Bilirubin Urine Urobilinogen Ur Leukocyte Esterase Urine RBC Urine WBC Ur Squamous Epith Cells Urine Bacteria Urine Casts Urine Mucus Ur Microscopic Review Urine Culture Comments C. difficile Tox B Gene POSITIVE A* 11/28/18 10:29 WBC RBC Hgb Hct MCV MCH MCHC RDW Plt Count MPV Neut # (Auto) Lymph # (Auto) [place] # (Auto) Eos # (Auto) Baso # (Auto) Absolute Nucleated RBC Nucleated RBC % Sodium Potassium Chloride Carbon Dioxide Anion Gap BUN Creatinine Estimated GFR (MDRD) Glucose Calcium Total Bilirubin AST ALT Alkaline Phosphatase Total Protein Albumin Globulin Albumin/Globulin Ratio Lipase Urine Color DARK YELLOW Urine Clarity HAZY Urine pH 5.0 Ur Specific [place] 1.025 Urine Protein 30 H Urine Glucose (UA) NEGATIVE Urine Ketones TRACE Urine Occult Blood NEGATIVE Urine Nitrite POSITIVE H Urine Bilirubin NEGATIVE Urine Urobilinogen 1 (NORMAL) Ur Leukocyte Esterase TRACE H Urine RBC 0-5 Urine WBC 4-5 Ur Squamous Epith Cells MANY Squamous H Urine Bacteria Many H Urine Casts 11-25 Hyaline Casts Urine Mucus Marked Strands Ur Microscopic Review INDICATED Urine Culture Comments NOT INDICATED C. difficile Tox B Gene PD MEDICAL DECISION MAKING - ED course Complexity details: reviewed old records, reviewed results, re-evaluated patient, considered differential, d/w patient, d/w family ED course: Pain and symptoms well controlled here. Unclear etiology of her symptoms. Stool cultures and C. difficile testing were sent. After the patient had gone home, her C. difficile test came back positive. Will place on oral vancomycin. 125 mg p.o. daily x4 days for 10 days. This will be called into the pharmacy by the nursing staff. Patient will follow-up with her GI doctor for further care. Patient counseled regarding signs and symptoms for which I believe and urgent re-evaluation would be necessary. Patient with good understanding of and agreement to plan and is comfortable going home at this time This document was made in part using voice recognition software. While efforts are made to proofread this document, sound alike and grammatical errors may occur. Departure - Departure Disposition: Home, Self Care Clinical Impression: C. difficile colitis Abdominal pain Qualifiers: Abdominal location: generalized Qualified Code(s): R10.84 - Generalized abdominal pain Condition: Good Instructions: ED Abdominal Pain Unkn Cause Follow-Up: Katie Cruz MD [Primary Care Provider] - Within 3 Days Prescriptions: Hyoscyamine Sulfate [Levsin-Sl] 0.125 mg SL Q6H PRN #14 tab.subl PRN Reason: Abdominal Pain Meloxicam [Mobic] 15 mg PO DAILY PRN #20 tablet PRN Reason: pain Ondansetron Odt [Zofran] 4 mg TL Q6H PRN #10 tablet PRN Reason: Nausea / Vomiting Comments: Continue your medications at home. Return if you worsen. Discharge Date/Time: 11/28/18 11:31
[2018-11-28] MEDS ORDERED: SODIUM CHLORIDE 0.9% 1,000 ML IV ONE ×2 (07:53→09:18)
[2018-11-28] MEDS ORDERED: HYDROmorphone 1 MG/ML CARPUJECT IVP STA ×2 (07:53→10:29)
[2018-11-28] MEDS ORDERED: KETOROLAC 30 MG/ML VIAL IVP STA (07:53)
[2018-11-28] MEDS ORDERED: DICYCLOMINE 10 MG CAPSULE PO STA (07:53)
[2018-11-28 10:56] LABS: GLUCOSE, URINE (UA) NEGATIVE (NEGATIVE); KETONES,URINE (UA) TRACE mg/dL (NEGATIVE); LEUKOCYTE ESTERASE, URINE TRACE (NEGATIVE); NITRITE,URINE POSITIVE (NEGATIVE); OCCULT BLOOD,URINE NEGATIVE (NEGATIVE); PROTEIN,URINE 30 mg/dL (NEGATIVE); UROBILINOGEN,URINE 1 (NORMAL) E.U./dL (NORMAL)
[2018-11-28 11:05] LABS: BILIRUBIN,URINE NEGATIVE (NEGATIVE); CLARITY,URINE HAZY (CLEAR); ICTOTEST,URINE NEGATIVE
[2018-11-28 11:10] VITALS: BP 118/55
[2018-11-28 11:16] LABS: BACTERIA,URINE Many /HPF (None Seen); CASTS, URINE 11-25 Hyaline Casts /LPF; MUCUS,URINE Marked Strands; RBC,URINE 0-5 /HPF (0-5); SQUAMOUS EPITHELIAL CELL,UR MANY Squamous (<= Few)
== END 2018-11-28 11:31 | disposition home or self-care (01) ==
LOC: ED 06:35
DX: A04.72 Enterocolitis due to Clostridium difficile, not specified as recurrent (principal); I10 Essential (primary) hypertension; F17.200 Nicotine dependence, unspecified, uncomplicated
CPT/HCPCS: 36415; 51701; 80053; 81001; 83690; 85025; 87045; 87046; 87493; 96361; 96374; 96375; 96376; 99284; 99285; A9270; J1170; 81003; 87086

== ENCOUNTER 2018-12-01 15:08 | Emergency (ER) | payer MEDICARE, OTHER ==
[2018-12-01 16:06] LABS: BASOPHILS % (AUTO) 0.4 %; EOSINOPHILS # (AUTO) 0.2 10^3/uL (0.0-0.7); EOSINOPHILS % (AUTO) 1.8 %; HGB - HEMOGLOBIN 13.4 g/dL (12.0-16.0); LYMPHOCYTES % (AUTO) 23.1 %; MEAN CORPUSCULAR HEMOGLOBIN 31.3 pg (27.0-31.0); MEAN CORPUSCULAR HGB CONC 32.1 g/dL (32.0-36.0); MEAN CORPUSCULAR VOLUME 97.7 fL (81.0-99.0); MEAN PLATELET VOLUME 9.4 fL (7.9-10.8); MONOCYTES # (AUTO) 0.7 10^3/uL (0.0-1.0); MONOCYTES % (AUTO) 8.3 %; NEUTROPHILS # (AUTO) 5.7 10^3/uL (1.5-6.6); NEUTROPHILS % (AUTO) 65.9 %; PLT - PLATELET COUNT 285 10^3/uL (130-450); RED BLOOD COUNT 4.28 10^6/uL (4.20-5.40); WHITE BLOOD COUNT 8.6 x10^3/uL (4.8-10.8)
[2018-12-01 16:18] LABS: ALBUMIN 3.9 g/dL (3.2-5.5); BILIRUBIN,TOTAL 0.4 mg/dL (0.2-1.0); CALCIUM 9.2 mg/dL (8.5-10.3); CREATININE 0.6 mg/dL (0.4-1.0); TOTAL PROTEIN 7.8 g/dL (6.7-8.2)
--- NOTE | 2018-12-01 16:52 | ED Physician Documentation ---
PD HPI NVD - Stated complaint Stated Complaint: AB PX - Chief complaint Chief Complaint: Abd Pain - History obtained from History obtained from: Patient - History of Present Illness Timing - onset: How many days ago (few) Timing - duration: Days Timing - details: Gradual onset, Still present Associated symptoms: Abdominal pain, Other (nausea and diarrhea) Contributing factors: No: Sick contact Improved by: No: Vomiting Worsened by: Eating Recently seen: Emergency Dept (Seen in the ER few days ago and diagnosed with C. difficile subsequently on a stool sample. She was called in prescription for vancomycin. She started to just yesterday so is only had 1 or 2 doses. She complained of persistent pain nausea and vomiting and diarrhea.) Review of Systems Constitutional: denies: Fever, Chills, Myalgias Nose: denies: Rhinorrhea / runny nose, Congestion Throat: denies: Sore throat Respiratory: denies: Cough GI: reports: Abdominal Pain, Nausea, Diarrhea. denies: Abdominal Swelling, Bloody / black stool : denies: Dysuria, Frequency Skin: denies: Rash, Lesions Neurologic: reports: Generalized weakness. 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 HEENT: Tonsil/Adenoidectomy - Present Medications Home Medications: Ambulatory Orders Medication Instructions Recorded Confirmed RX: Propranolol [Inderal] 10 mg ORAL BID 03/04/16 05/15/17 Dicyclomine [Bentyl] 10 mg PO Q8H PRN #20 capsule 05/15/17 RX: Phenazopyridine HCl 200 mg PO TID PRN #10 tablet 11/07/17 Dicyclomine [Bentyl] 10 mg PO QID PRN #20 capsule 08/29/18 Ondansetron Odt [Zofran] 4 mg TL Q6H PRN #10 tablet 08/29/18 Phenazopyridine HCl [Pyridium] 200 mg PO TID PRN #6 tablet 08/29/18 LORazepam [Ativan] 1 mg PO Q8HR PRN #20 tablet 09/01/18 Methocarbamol [Robaxin-750] 750 mg PO TID PRN #20 tablet 09/01/18 Oxycodone HCl/Acetaminophen 1 - 2 each PO Q6H PRN #14 tablet 09/01/18 [Percocet 5-325 mg Tablet] Ondansetron Odt [Zofran] 4 mg TL Q6H PRN #10 tablet 09/04/18 Oxycodone HCl/Acetaminophen 1 - 2 each PO Q6H PRN #20 tablet 09/04/18 [Percocet 5-325 mg Tablet] RX: predniSONE [Deltasone] 10 mg PO [id number] #42 tab 09/04/18 LORazepam [Ativan] 1 mg PO BID PRN #14 tablet 09/07/18 Oxybutynin [Ditropan] 5 mg PO BID #10 tablet 09/07/18 Oxycodone HCl/Acetaminophen 1 each PO Q6H PRN #14 tablet 09/07/18 [Percocet 5-325 mg Tablet] Phenazopyridine HCl [Pyridium] 100 mg PO TID #15 tablet 09/07/18 RX: Naproxen 375 mg PO BID #15 tablet 09/07/18 Cephalexin [Keflex] 500 mg PO BID #14 capsule 09/11/18 Hyoscyamine Sulfate [Levsin-Sl] 0.125 mg SL Q6H PRN #14 tab.subl 11/28/18 Meloxicam [Mobic] 15 mg PO DAILY PRN #20 tablet 11/28/18 Ondansetron Odt [Zofran] 4 mg TL Q6H PRN #10 tablet 11/28/18 Oxybutynin [Ditropan] 5 mg PO BID #14 tablet 12/01/18 Oxycodone HCl/Acetaminophen 1 each PO QID PRN #20 tablet 12/01/18 [Percocet 10-325 mg Tablet] - Allergies Allergies/Adverse Reactions: Allergies Allergy/AdvReac Type Severity Reaction Status Date / Time amoxicillin trihydrate * Allergy Intermediate Emesis, Verified 12/01/18 15:12 [From Augmentin] nausea erythromycin base Allergy Intermediate Emesis, Verified 12/01/18 15:12 [Erythromycin Base] nausea morphine Allergy Intermediate Hallucinati Verified 12/01/18 15:12 ons potassium clavulanate * Allergy Intermediate Emesis, Verified 12/01/18 15:12 [From Augmentin] nausea Sulfa (Sulfonamide Allergy Nausea Verified 12/01/18 15:12 Antibiotics) iodine AdvReac Severe Hives Verified 12/01/18 15:12 ciprofloxacin [From Cipro] AdvReac Nausea Verified 12/01/18 15:12 - Social History Does the pt smoke?: Yes Smoking Status: Current every day smoker Does the pt drink ETOH?: No Does the pt have substance abuse?: No - Immunizations Immunizations are current?: Yes - POLST Patient has POLST: No PD ED PE NORMAL - Vitals Vital signs reviewed: Yes - General General: Alert and oriented X 3, Well developed/nourished, Other (appears in pain from stomach generally. ) - Neck Neck: Supple, no meningeal sign, No adenopathy - Cardiac Cardiac: RRR, No murmur - Respiratory Respiratory: Clear bilaterally - Abdomen Abdomen: Soft, Non distended, Other (tender generally without guarding, percussion nor rebound tenderness. ). No: Normal bowel sounds (increased) - Female Female : Deferred - Rectal Rectal: Deferred - Back Back: No CVA TTP - Derm Derm: Normal color, Warm and dry - Extremities Extremities: No tenderness to palpate, Normal ROM s pain - Neuro Neuro: Alert and oriented X 3, No motor deficit, Normal speech Results - Vitals Vitals: Vital Signs - 24 hr 12/01/18 17:23 Temperature 36.9 C Heart Rate 85 Respiratory 16 Rate Blood Pressure 149/81 H O2 Saturation 94 Oxygen O2 Source Room air - Labs Labs: Laboratory Tests 12/01/18 12/01/18 12/01/18 16:00 16:00 16:50 WBC 8.6 RBC 4.28 Hgb 13.4 Hct 41.8 MCV 97.7 MCH 31.3 H MCHC 32.1 RDW 13.0 Plt Count 285 MPV 9.4 Neut # (Auto) 5.7 Lymph # (Auto) 2.0 [place] # (Auto) 0.7 Eos # (Auto) 0.2 Baso # (Auto) 0.0 Absolute Nucleated RBC 0.00 Nucleated RBC % 0.0 Sodium 141 Potassium 4.0 Chloride 105 Carbon Dioxide 25 Anion Gap 11.0 BUN 7 Creatinine 0.6 Estimated GFR (MDRD) 100 Glucose 151 H Calcium 9.2 Total Bilirubin 0.4 AST 38 ALT 27 Alkaline Phosphatase 69 Total Protein 7.8 Albumin 3.9 Globulin 3.9 Albumin/Globulin Ratio 1.0 Lipase 29 Urine Color YELLOW Urine Clarity CLEAR Urine pH 7.0 Ur Specific [place] 1.010 Urine Protein NEGATIVE Urine Glucose (UA) NEGATIVE Urine Ketones NEGATIVE Urine Occult Blood NEGATIVE Urine Nitrite NEGATIVE Urine Bilirubin NEGATIVE Urine Urobilinogen 0.2 (NORMAL) Ur Leukocyte Esterase NEGATIVE Ur Microscopic Review NOT INDICATED Urine Culture Comments NOT INDICATED PD MEDICAL DECISION MAKING - ED course Complexity details: reviewed old records, considered differential (Given medications for symptoms of inflammation nausea and pain. She just started the Vanco so letter continue with that. I did not see need for testing as she does not have an acute surgical abdomen on exam.), d/w patient Departure - Departure Disposition: 01 Home, Self Care Clinical Impression: Abdominal pain, C. difficile colitis Condition: Stable Record reviewed to determine appropriate education?: Yes Follow-Up: Katie Cruz MD [Primary Care Provider] - Prescriptions: Oxybutynin [Ditropan] 5 mg PO BID #14 tablet Oxycodone HCl/Acetaminophen [Percocet 10-325 mg Tablet] 1 each PO QID PRN #20 tablet PRN Reason: Pain Comments: Use the oxycodone as needed for pain short-term. Continue your nausea medicine as needed. He can try Ditropan if needed for bladder spasms or feeling of that. Continue the vancomycin he recently started. I would anticipate improvement in the intestinal cramps and gassiness over the next few days as the infection is clearing. Follow-up with your primary care this coming week. Discharge Date/Time: 12/01/18 18:13
[2018-12-01 17:11] LABS: BILIRUBIN,URINE NEGATIVE (NEGATIVE); GLUCOSE, URINE (UA) NEGATIVE (NEGATIVE); KETONES,URINE (UA) NEGATIVE (NEGATIVE); LEUKOCYTE ESTERASE, URINE NEGATIVE (NEGATIVE); NITRITE,URINE NEGATIVE (NEGATIVE); OCCULT BLOOD,URINE NEGATIVE (NEGATIVE); PROTEIN,URINE NEGATIVE (NEGATIVE); UROBILINOGEN,URINE 0.2 (NORMAL) E.U./dL (NORMAL)
[2018-12-01] MEDS ORDERED: HYDROmorphone 1 MG/ML CARPUJECT IM STA (17:14)
[2018-12-01 17:15] LABS: CLARITY,URINE CLEAR (CLEAR)
[2018-12-01] MEDS ORDERED: OXYBUTYNIN 5MG TABLET PO STA (17:15)
[2018-12-01] MEDS ORDERED: KETOROLAC 30 MG/ML VIAL IM STA (17:15)
[2018-12-01] MEDS ORDERED: PROMETHAZINE 25 MG/1 ML VIAL IM STA (17:17)
[2018-12-01 17:24] VITALS: BP 149/81
== END 2018-12-01 18:13 | disposition home or self-care (01) ==
LOC: ED 15:08
DX: A04.72 Enterocolitis due to Clostridium difficile, not specified as recurrent (principal); I10 Essential (primary) hypertension; F17.200 Nicotine dependence, unspecified, uncomplicated
CPT/HCPCS: 36415; 80053; 81003; 83690; 85025; 96372; 99283; 99284; A9270; J1170; 81001; 87086

== ENCOUNTER 2018-12-02 15:44 | Emergency (ER) | payer MEDICARE, OTHER ==
[2018-12-02 15:52] VITALS: BP 169/84
--- NOTE | 2018-12-02 16:16 | ED Physician Documentation ---
PD HPI FEMALE - Stated complaint Stated Complaint: FEMALE - Chief complaint Chief Complaint: Wound - History obtained from History obtained from: Patient - History of Present Illness Timing - onset: Last night Timing - duration: Days (1/2) Timing - details: Abrupt onset (noted last night an area of tenderness and swelling left labia. No prior similar.) Associated symptoms: Genital sore/lesion. No: Vaginal bleeding, Vaginal discharge, Dysuria Contributing factors: No: Sexually active Similar symptoms before: Has not had sx before Recently seen: Emergency Dept (seen for diarrhea and C. Diff recently. On Flagyl and Vanco.) Review of Systems Constitutional: reports: Myalgias, Fatigue (from her diarrhea, which is improving now since been on Vanco for 2 days.). 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 HEENT: Tonsil/Adenoidectomy - Present Medications Home Medications: Ambulatory Orders Medication Instructions Recorded Confirmed Propranolol [Inderal] 10 mg ORAL BID 03/04/16 05/15/17 Dicyclomine [Bentyl] 10 mg PO Q8H PRN #20 capsule 05/15/17 Phenazopyridine HCl 200 mg PO TID PRN #10 tablet 11/07/17 Dicyclomine [Bentyl] 10 mg PO QID PRN #20 capsule 08/29/18 Ondansetron Odt [Zofran] 4 mg TL Q6H PRN #10 tablet 08/29/18 Phenazopyridine HCl [Pyridium] 200 mg PO TID PRN #6 tablet 08/29/18 LORazepam [Ativan] 1 mg PO Q8HR PRN #20 tablet 09/01/18 Methocarbamol [Robaxin-750] 750 mg PO TID PRN #20 tablet 09/01/18 Oxycodone HCl/Acetaminophen 1 - 2 each PO Q6H PRN #14 tablet 09/01/18 [Percocet 5-325 mg Tablet] Ondansetron Odt [Zofran] 4 mg TL Q6H PRN #10 tablet 09/04/18 Oxycodone HCl/Acetaminophen 1 - 2 each PO Q6H PRN #20 tablet 09/04/18 [Percocet 5-325 mg Tablet] predniSONE [Deltasone] 10 mg PO [id number] #42 tab 09/04/18 LORazepam [Ativan] 1 mg PO BID PRN #14 tablet 09/07/18 Naproxen 375 mg PO BID #15 tablet 09/07/18 Oxybutynin [Ditropan] 5 mg PO BID #10 tablet 09/07/18 Oxycodone HCl/Acetaminophen 1 each PO Q6H PRN #14 tablet 09/07/18 [Percocet 5-325 mg Tablet] Phenazopyridine HCl [Pyridium] 100 mg PO TID #15 tablet 09/07/18 Cephalexin [Keflex] 500 mg PO BID #14 capsule 09/11/18 Hyoscyamine Sulfate [Levsin-Sl] 0.125 mg SL Q6H PRN #14 tab.subl 11/28/18 Meloxicam [Mobic] 15 mg PO DAILY PRN #20 tablet 11/28/18 Ondansetron Odt [Zofran] 4 mg TL Q6H PRN #10 tablet 11/28/18 Oxybutynin [Ditropan] 5 mg PO BID #14 tablet 12/01/18 Oxycodone HCl/Acetaminophen 1 each PO QID PRN #20 tablet 12/01/18 [Percocet 10-325 mg Tablet] - Allergies Allergies/Adverse Reactions: Allergies Allergy/AdvReac Type Severity Reaction Status Date / Time amoxicillin trihydrate * Allergy Intermediate Emesis, Verified 12/01/18 15:12 [From Augmentin] nausea erythromycin base Allergy Intermediate Emesis, Verified 12/01/18 15:12 [Erythromycin Base] nausea morphine Allergy Intermediate Hallucinati Verified 12/01/18 15:12 ons potassium clavulanate * Allergy Intermediate Emesis, Verified 12/01/18 15:12 [From Augmentin] nausea Sulfa (Sulfonamide Allergy Nausea Verified 12/01/18 15:12 Antibiotics) iodine AdvReac Severe Hives Verified 12/01/18 15:12 ciprofloxacin [From Cipro] AdvReac Nausea Verified 08/17/19 15:12 - Social History Does the pt smoke?: Yes Smoking Status: Current every day smoker Does the pt drink ETOH?: No Does the pt have substance abuse?: No - Immunizations Immunizations are current?: Yes - POLST Patient has POLST: No PD ED PE NORMAL - Vitals Vital signs reviewed: Yes - General General: Alert and oriented X 3, No acute distress, Well developed/nourished - Abdomen Abdomen: Soft, Non tender - Female Female : 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 There is upper left outer labial focal area of tenderness, swelling, and redness, with pointing but no drainage. ) Results - Vitals Vitals: Vital Signs - 24 hr 12/02/18 15:50 Heart Rate 102 H Respiratory 20 Rate Blood Pressure 169/84 H O2 Saturation 97 Oxygen O2 Source Room air Procedures - Abscess I&D (location) left upper labia Preparation: Lidocaine 1%, With epi. No: LET (none available in hospital) Incision: Incised with scalpel, Purulent drainage (few drops of purulence.) Other: Pt tolerated well. No: Antibiotic prescribed PD MEDICAL DECISION MAKING - ED course Complexity details: considered differential, d/w patient Departure - Departure Disposition: 01 Home, Self Care Clinical Impression: Abscess of genital labia Condition: Stable Record reviewed to determine appropriate education?: Yes Instructions: ED Bartholins Cyst IandD Follow-Up: Katie Cruz MD [Primary Care Provider] - Comments: Warm soaks or compresses to the area a few times a day. This will try to help promote further drainage. Follow-up with your primary care if it is not improved well over the next couple of days. Continue your other usual medications. Discharge Date/Time: 12/02/18 17:35
[2018-12-02] MEDS ORDERED: LIDOCAINE-EPINEPH-TETRACAINE 3 ML SYRINGE TOP STA (16:33)
[2018-12-02] MEDS ORDERED: LIDOCAINE 1%-EPI 1:100000 20 ML MDV ONE (17:07)
== END 2018-12-02 17:35 | disposition home or self-care (01) ==
LOC: ED 15:44
DX: N76.4 Abscess of vulva (principal); I10 Essential (primary) hypertension; F17.200 Nicotine dependence, unspecified, uncomplicated
CPT/HCPCS: 56405

== ENCOUNTER 2018-12-07 20:49 | Emergency (ER) | payer MEDICARE, OTHER ==
--- NOTE | 2018-12-07 21:42 | ED Physician Documentation ---
PD HPI ABD PAIN - Stated complaint Stated Complaint: DIARRHEA/NITESH/ABD PX - Chief complaint Chief Complaint: Abd Pain - History obtained from History obtained from: Patient - History of Present Illness Timing - onset: Chronic Timing - details: Constant, Waxing and waning Pain level now: 8 Quality: Pain Location: All over / everywhere Improved by: Other (nothing) Worsened by: Position, Palpation Associated symptoms: Nausea, Diarrhea. No: Fever, Vomiting Similar symptoms before: Diagnosis (clostridium difficile colitis) Recently seen: Emergency Dept - Additional information Additional information: 4th [facility] ED visit in 10 days for same c/o. 10th [facility] ED visit this year. patient c/o generalized abdominal pain, cramping, diarrhea. patient states Im on that Vancomycin. It worked for a while but now the diarrhea and pain is back. patient says she is scheduled for next GI appointment 12/24. she says she has not contacted PMD for these worsening symptoms. she has run out of the 10mg/325mg percocet (#20) that was prescribed 12/01 from this ED. she says she still has some of the 5mg/325mg percocet from her monthly rx from PMD but insists it never works (per patient) Review of Systems Constitutional: reports: Reviewed and negative Cardiac: reports: Reviewed and negative Respiratory: reports: Reviewed and negative GI: reports: Abdominal Pain, Diarrhea : denies: Dysuria, Frequency PD PAST MEDICAL HISTORY - Past Medical History Past Medical History: Yes Cardiovascular: Hypertension, High cholesterol Respiratory: None Neuro: None Endocrine/Autoimmune: None GI: Chronic diarrhea, Other : None HEENT: None Psych: Anxiety Musculoskeletal: Fibromyalgia, Chronic back pain Derm: None - Past Surgical History Past Surgical History: Yes General: Bowel surgery, 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 HEENT: Tonsil/Adenoidectomy - Present Medications Home Medications: Ambulatory Orders Medication Instructions Recorded Confirmed Propranolol [Inderal] 10 mg ORAL BID 03/04/16 05/15/17 Dicyclomine [Bentyl] 10 mg PO Q8H PRN #20 capsule 05/15/17 Phenazopyridine HCl 200 mg PO TID PRN #10 tablet 11/07/17 Dicyclomine [Bentyl] 10 mg PO QID PRN #20 capsule 08/29/18 Ondansetron Odt [Zofran] 4 mg TL Q6H PRN #10 tablet 08/29/18 Phenazopyridine HCl [Pyridium] 200 mg PO TID PRN #6 tablet 08/29/18 LORazepam [Ativan] 1 mg PO Q8HR PRN #20 tablet 09/01/18 Methocarbamol [Robaxin-750] 750 mg PO TID PRN #20 tablet 09/01/18 Oxycodone HCl/Acetaminophen 1 - 2 each PO Q6H PRN #14 tablet 09/01/18 [Percocet 5-325 mg Tablet] Ondansetron Odt [Zofran] 4 mg TL Q6H PRN #10 tablet 09/04/18 Oxycodone HCl/Acetaminophen 1 - 2 each PO Q6H PRN #20 tablet 09/04/18 [Percocet 5-325 mg Tablet] predniSONE [Deltasone] 10 mg PO [id number] #42 tab 09/04/18 LORazepam [Ativan] 1 mg PO BID PRN #14 tablet 09/07/18 Naproxen 375 mg PO BID #15 tablet 09/07/18 Oxybutynin [Ditropan] 5 mg PO BID #10 tablet 09/07/18 Oxycodone HCl/Acetaminophen 1 each PO Q6H PRN #14 tablet 09/07/18 [Percocet 5-325 mg Tablet] Phenazopyridine HCl [Pyridium] 100 mg PO TID #15 tablet 09/07/18 Cephalexin [Keflex] 500 mg PO BID #14 capsule 09/11/18 Hyoscyamine Sulfate [Levsin-Sl] 0.125 mg SL Q6H PRN #14 tab.subl 11/28/18 Meloxicam [Mobic] 15 mg PO DAILY PRN #20 tablet 11/28/18 Ondansetron Odt [Zofran] 4 mg TL Q6H PRN #10 tablet 11/28/18 Oxybutynin [Ditropan] 5 mg PO BID #14 tablet 12/01/18 Oxycodone HCl/Acetaminophen 1 each PO QID PRN #20 tablet 12/01/18 [Percocet 10-325 mg Tablet] Oxycodone HCl/Acetaminophen 1 each PO Q6HR PRN #7 tablet 12/07/18 [Oxycodone-Acetaminophen 10-325] - Allergies Allergies/Adverse Reactions: Allergies Allergy/AdvReac Type Severity Reaction Status Date / Time amoxicillin trihydrate * Allergy Intermediate Emesis, Verified 12/01/18 15:12 [From Augmentin] nausea erythromycin base Allergy Intermediate Emesis, Verified 12/01/18 15:12 [Erythromycin Base] nausea morphine Allergy Intermediate Hallucinati Verified 12/01/18 15:12 ons potassium clavulanate * Allergy Intermediate Emesis, Verified 12/01/18 15:12 [From Augmentin] nausea Sulfa (Sulfonamide Allergy Nausea Verified 12/01/18 15:12 Antibiotics) iodine AdvReac Severe Hives Verified 12/01/18 15:12 ciprofloxacin [From Cipro] AdvReac Nausea Verified 12/01/18 15:12 - Social History Does the pt smoke?: Yes Smoking Status: Current every day smoker Does the pt drink ETOH?: No Does the pt have substance abuse?: No - Immunizations Immunizations are current?: Yes - POLST Patient has POLST: No PD ED PE NORMAL - Vitals Vital signs reviewed: Yes - General General: Alert and oriented X 3, No acute distress, Well developed/nourished - HEENT HEENT: Moist mucous membranes - Cardiac Cardiac: RRR, No murmur - Respiratory Respiratory: No respiratory distress, Clear bilaterally - Abdomen Abdomen: Normal bowel sounds, Soft, Non tender, Non distended, No organomegaly - Derm Derm: Normal color, Warm and dry Results - Vitals Vitals: Vital Signs - 24 hr 12/07/18 12/07/18 21:30 23:45 Temperature 36.7 C Heart Rate 108 H Respiratory 16 18 Rate Blood Pressure 146/70 H O2 Saturation 93 Oxygen O2 Source Room air - Labs Labs: Laboratory Tests 12/07/18 12/07/18 22:10 22:10 WBC 8.0 RBC 4.34 Hgb 13.7 Hct 42.3 MCV 97.5 MCH 31.6 H MCHC 32.4 RDW 13.1 Plt Count 284 MPV 9.2 Neut # (Auto) 5.8 Lymph # (Auto) 1.4 L [place] # (Auto) 0.6 Eos # (Auto) 0.1 Baso # (Auto) 0.0 Absolute Nucleated RBC 0.00 Nucleated RBC % 0.0 Sodium 140 Potassium 4.2 Chloride 102 Carbon Dioxide 28 Anion Gap 10.0 BUN 10 Creatinine 0.8 Estimated GFR (MDRD) 72 L Glucose 186 H Calcium 9.7 Total Bilirubin 0.2 AST 28 ALT 25 Alkaline Phosphatase 73 Total Protein 8.0 Albumin 3.8 Globulin 4.2 Albumin/Globulin Ratio 0.9 L Lipase 20 L PD MEDICAL DECISION MAKING - ED course Complexity details: reviewed old records, reviewed results, re-evaluated patient, considered differential, d/w patient, d/w family ED course: given IV fluids, zofran, and dilaudid. on reevaluation, after tests resulted, patient is in awake, alert, in NAD, and eating chips. she tells me the dilaudid had minimal and inadequate effect. I reviewed test results with her including normal WBC, and discussed with her that no further emergent testing or treatment indicated at this time. Patient expresses strong trepidation that her pain will worsen and repeatedly tells me that the 5mg percocet does nothing (per patient) and the ED- prescribed 10mg percocet was more effective for her pain. patient and I had the same conversation 2 months ago when I evaluated her in this ED for similar symptoms. I again explained to her that, at this time, there are no indications on exam/test results for further emergent testing or treatment. She laments that her PMD has not increased her allotted dose of pain medication for her ongoing/recurrent symptoms. She was given 10mg oxycodone prior to discharge and rx for 7 tablets of 10mg percocet Departure - Departure Disposition: 01 Home, Self Care Clinical Impression: Abdominal pain Qualifiers: Abdominal location: generalized Qualified Code(s): R10.84 - Generalized abdominal pain Condition: Good Instructions: ED Gastroenteritis Bacterial Follow-Up: Katie Cruz MD [Primary Care Provider] - (Call to arrange for next available appointment) Prescriptions: Oxycodone HCl/Acetaminophen [Oxycodone-Acetaminophen 10-325] 1 each PO Q6HR PRN #7 tablet PRN Reason: Pain Discharge Date/Time: 12/07/18 23:49
[2018-12-07] MEDS ORDERED: LORazepam 2 MG/ML VIAL IVP STA (22:09)
[2018-12-07] MEDS ORDERED: SODIUM CHLORIDE 0.9% 1,000 ML IV STA (22:09)
[2018-12-07] MEDS ORDERED: HYDROmorphone 1 MG/ML CARPUJECT IVP STA (22:09)
[2018-12-07] MEDS ORDERED: ONDANSETRON 4 MG/2 ML VIAL IVP STA (22:09)
[2018-12-07 22:16] LABS: BASOPHILS % (AUTO) 0.4 %; EOSINOPHILS # (AUTO) 0.1 10^3/uL (0.0-0.7); EOSINOPHILS % (AUTO) 1.3 %; HGB - HEMOGLOBIN 13.7 g/dL (12.0-16.0); LYMPHOCYTES # (AUTO) 1.4 10^3/uL (1.5-3.5); LYMPHOCYTES % (AUTO) 17.6 %; MEAN CORPUSCULAR HEMOGLOBIN 31.6 pg (27.0-31.0); MEAN CORPUSCULAR HGB CONC 32.4 g/dL (32.0-36.0); MEAN CORPUSCULAR VOLUME 97.5 fL (81.0-99.0); MEAN PLATELET VOLUME 9.2 fL (7.9-10.8); MONOCYTES # (AUTO) 0.6 10^3/uL (0.0-1.0); MONOCYTES % (AUTO) 7.7 %; NEUTROPHILS # (AUTO) 5.8 10^3/uL (1.5-6.6); NEUTROPHILS % (AUTO) 72.6 %; PLT - PLATELET COUNT 284 10^3/uL (130-450); RED BLOOD COUNT 4.34 10^6/uL (4.20-5.40); RED CELL DISTRIBUTION WIDTH 13.1 % (12.0-15.0)
[2018-12-07 22:32] LABS: ALBUMIN 3.8 g/dL (3.2-5.5); ALBUMIN/GLOBULIN RATIO 0.9 (1.0-2.2); BILIRUBIN,TOTAL 0.2 mg/dL (0.2-1.0); CALCIUM 9.7 mg/dL (8.5-10.3); CREATININE 0.8 mg/dL (0.4-1.0)
[2018-12-07] MEDS ORDERED: oxyCODONE 5 MG TABLET PO STA (23:34)
[2018-12-07 23:46] VITALS: BP 146/70
== END 2018-12-07 23:49 | disposition home or self-care (01) ==
LOC: ED 20:49
DX: R10.84 Generalized abdominal pain (principal); I10 Essential (primary) hypertension; F17.200 Nicotine dependence, unspecified, uncomplicated
CPT/HCPCS: 36415; 80053; 83690; 85025; 96361; 96374; 96375; 99283; 99284; A9270; J1170; J2060

== ENCOUNTER 2018-12-26 08:00 | Outpatient (CLI) | payer MEDICARE, OTHER | END 2018-12-26 23:59 | disposition home or self-care (01) | LOC: LAB.R 08:00 | PROVIDERS: ATTEND Internal Medicine | DX: R19.7 Diarrhea, unspecified (principal) | CPT/HCPCS: 87493 ==

== ENCOUNTER 2019-01-01 07:15 | Emergency (ER) | payer MEDICARE, OTHER ==
--- NOTE | 2019-01-01 08:41 | ED Physician Documentation ---
PD HPI NVD - Stated complaint Stated Complaint: PX ALL OVER - Chief complaint Chief Complaint: Abd Pain - History obtained from History obtained from: Patient - History of Present Illness Timing - onset: How many days ago (2-3 days of increased lower abd cramping. Soft to mushy stools; no diarrhea per se. Tested positive again for C.Diff. on 12/23/18. Had finished Vanco about a week prior.) Timing - duration: Days Timing - details: Gradual onset, Still present, Waxing and waning Associated symptoms: Loss of appetite. No: Fever, Abdominal pain, Near syncope / syncope Similar symptoms before: No diagnosis Recently seen: Clinic (had stool test last week which was positive for C. Diff.), Not recently seen Review of Systems Constitutional: reports: Myalgias, Fatigue. denies: Fever, Chills Nose: denies: Rhinorrhea / runny nose, Congestion Throat: denies: Sore throat Respiratory: denies: Cough GI: reports: Abdominal Pain, Nausea. denies: Abdominal Swelling, Vomiting, Diarrhea (loose/mushy stools.) : denies: Dysuria, Frequency Musculoskeletal: reports: Extremity pain (diffusely c/w her FM.). denies: Neck pain, Back pain Neurologic: reports: Generalized weakness. 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 HEENT: Tonsil/Adenoidectomy - Present Medications Home Medications: Ambulatory Orders Medication Instructions Recorded Confirmed Propranolol [Inderal] 10 mg ORAL BID 03/04/16 05/15/17 Dicyclomine [Bentyl] 10 mg PO Q8H PRN #20 capsule 05/15/17 Phenazopyridine HCl 200 mg PO TID PRN #10 tablet 11/07/17 Dicyclomine [Bentyl] 10 mg PO QID PRN #20 capsule 08/29/18 Ondansetron Odt [Zofran] 4 mg TL Q6H PRN #10 tablet 08/29/18 Phenazopyridine HCl [Pyridium] 200 mg PO TID PRN #6 tablet 08/29/18 LORazepam [Ativan] 1 mg PO Q8HR PRN #20 tablet 09/01/18 Methocarbamol [Robaxin-750] 750 mg PO TID PRN #20 tablet 09/01/18 Oxycodone HCl/Acetaminophen 1 - 2 each PO Q6H PRN #14 tablet 09/01/18 [Percocet 5-325 mg Tablet] Ondansetron Odt [Zofran] 4 mg TL Q6H PRN #10 tablet 09/04/18 Oxycodone HCl/Acetaminophen 1 - 2 each PO Q6H PRN #20 tablet 09/04/18 [Percocet 5-325 mg Tablet] predniSONE [Deltasone] 10 mg PO [id number] #42 tab 09/04/18 LORazepam [Ativan] 1 mg PO BID PRN #14 tablet 09/07/18 Naproxen 375 mg PO BID #15 tablet 09/07/18 Oxybutynin [Ditropan] 5 mg PO BID #10 tablet 09/07/18 Oxycodone HCl/Acetaminophen 1 each PO Q6H PRN #14 tablet 09/07/18 [Percocet 5-325 mg Tablet] Phenazopyridine HCl [Pyridium] 100 mg PO TID #15 tablet 09/07/18 Cephalexin [Keflex] 500 mg PO BID #14 capsule 09/11/18 Hyoscyamine Sulfate [Levsin-Sl] 0.125 mg SL Q6H PRN #14 tab.subl 11/28/18 Meloxicam [Mobic] 15 mg PO DAILY PRN #20 tablet 11/28/18 Ondansetron Odt [Zofran] 4 mg TL Q6H PRN #10 tablet 11/28/18 Oxybutynin [Ditropan] 5 mg PO BID #14 tablet 12/01/18 Oxycodone HCl/Acetaminophen 1 each PO QID PRN #20 tablet 12/01/18 [Percocet 10-325 mg Tablet] Oxycodone HCl/Acetaminophen 1 each PO Q6HR PRN #7 tablet 12/07/18 [Oxycodone-Acetaminophen 10-325] Dicyclomine [Bentyl] 10 mg PO QID PRN #20 capsule 01/01/19 Promethazine [Phenergan] 25 mg PO Q6H PRN #20 tab 01/01/19 Vancomycin [Vancocin] 125 mg PO QID #40 capsule 01/01/19 dexAMETHasone [Decadron] 4 mg PO DAILY #5 tablet 01/01/19 - Allergies Allergies/Adverse Reactions: Allergies Allergy/AdvReac Type Severity Reaction Status Date / Time amoxicillin trihydrate * Allergy Intermediate Emesis, Verified 01/01/19 07:28 [From Augmentin] nausea erythromycin base Allergy Intermediate Emesis, Verified 12/01/18 15:12 [Erythromycin Base] nausea morphine Allergy Intermediate Hallucinati Verified 01/01/19 07:28 ons potassium clavulanate * Allergy Intermediate Emesis, Verified 01/01/19 07:28 [From Augmentin] nausea Sulfa (Sulfonamide Allergy Nausea Verified 01/01/19 07:28 Antibiotics) iodine AdvReac Severe Hives Verified 01/01/19 07:28 ciprofloxacin [From Cipro] AdvReac Nausea Verified 01/01/19 07:28 - Social History Does the pt smoke?: Yes Smoking Status: Current every day smoker Does the pt drink ETOH?: No Does the pt have substance abuse?: No - Immunizations Immunizations are current?: Yes - POLST Patient has POLST: No PD ED PE NORMAL - Vitals Vital signs reviewed: Yes - General General: Alert and oriented X 3, Well developed/nourished, Other (seems in pain; but is alert. ) - HEENT HEENT: Pharynx benign - Neck Neck: Supple, no meningeal sign, No adenopathy - Cardiac Cardiac: RRR, No murmur - Respiratory Respiratory: Clear bilaterally - Abdomen Abdomen: Normal bowel sounds, Soft, Non distended, No organomegaly Results - Vitals Vitals: Vital Signs - 24 hr 01/01/19 01/01/19 07:26 10:41 Temperature 36.4 C L Heart Rate 103 H 97 Respiratory 20 19 Rate Blood Pressure 181/92 H 159/74 H O2 Saturation 97 99 Oxygen O2 Source Room air - Labs Labs: Laboratory Tests 01/01/19 09:35 Urine Color YELLOW Urine Clarity CLEAR Urine pH 7.5 Ur Specific [place] 1.015 Urine Protein NEGATIVE Urine Glucose (UA) NEGATIVE Urine Ketones NEGATIVE Urine Occult Blood NEGATIVE Urine Nitrite NEGATIVE Urine Bilirubin NEGATIVE Urine Urobilinogen 0.2 (NORMAL) Ur Leukocyte Esterase NEGATIVE Ur Microscopic Review NOT INDICATED Urine Culture Comments NOT INDICATED PD MEDICAL DECISION MAKING - ED course Complexity details: re-evaluated patient (improved pain after IM meds. She is typically with some baseline pain, so did not aim for zero pain, but is improved well enough. Has symptoms c/w recurring C Diff, so can restart Vanco. ), consid ered differential, d/w patient Departure - Departure Disposition: Home, Self Care Clinical Impression: C. difficile colitis, Abdominal cramping, Fibromyalgia syndrome Condition: Stable Record reviewed to determine appropriate education?: Yes Follow-Up: Katie Cruz MD [Primary Care Provider] - Prescriptions: dexAMETHasone [Decadron] 4 mg PO DAILY #5 tablet Dicyclomine [Bentyl] 10 mg PO QID PRN #20 capsule PRN Reason: Abdominal Pain Promethazine [Phenergan] 25 mg PO Q6H PRN #20 tab PRN Reason: Nausea / Vomiting Vancomycin [Vancocin] 125 mg PO QID #40 capsule Comments: For the general pains from the fibromyalgia, continue your prescribed pain medications at home which use today to our oxycodone 10 mg 3 4 times a day prescribed by Dr. Cruz. Can add Decadron steroid for inflammation daily for 5 days. 4 your enteritis from the C. difficile, since you are having increasing symptoms, you could make sense to treated again with the vancomycin for 10 days and then follow-up with your primary care regarding any extended treatment. For the symptoms can use promethazine for nausea and dicyclomine for cramps. Follow-up with your primary care next week as planned. Stay well-hydrated. Follow-up as needed here in the ER. Discharge Date/Time: 01/01/19 10:41
[2019-01-01] MEDS ORDERED: DICYCLOMINE 10 MG CAPSULE PO STA (09:22)
[2019-01-01] MEDS ORDERED: HYDROmorphone 2 MG/ML VIAL IM STA (09:22)
[2019-01-01] MEDS ORDERED: CHERRY SYRUP 10 ML UDC PO ONE (09:24)
[2019-01-01] MEDS ORDERED: DEXAMETHASONE 10 MG/ML VIAL PO STA (09:24)
[2019-01-01] MEDS ORDERED: ONDANSETRON ODT 4 MG TABLET TL STA (09:24)
[2019-01-01 09:51] LABS: BILIRUBIN,URINE NEGATIVE (NEGATIVE); GLUCOSE, URINE (UA) NEGATIVE (NEGATIVE); KETONES,URINE (UA) NEGATIVE (NEGATIVE); LEUKOCYTE ESTERASE, URINE NEGATIVE (NEGATIVE); NITRITE,URINE NEGATIVE (NEGATIVE); OCCULT BLOOD,URINE NEGATIVE (NEGATIVE); PH,URINE 7.5 PH (5.0-7.5); PROTEIN,URINE NEGATIVE (NEGATIVE); UROBILINOGEN,URINE 0.2 (NORMAL) E.U./dL (NORMAL)
[2019-01-01 09:57] LABS: CLARITY,URINE CLEAR (CLEAR)
[2019-01-01 10:43] VITALS: BP 159/74
== END 2019-01-01 10:41 | disposition home or self-care (01) ==
LOC: ED 07:15
DX: A04.71 Enterocolitis due to Clostridium difficile, recurrent (principal); M79.7 Fibromyalgia; I10 Essential (primary) hypertension; F17.200 Nicotine dependence, unspecified, uncomplicated
CPT/HCPCS: 81003; 96372; 99284; A9270; J1170; Q0162; 81001; 87086

== ENCOUNTER 2019-02-07 07:00 | Outpatient (CLI) | payer MEDICARE, OTHER | END 2019-02-07 23:59 | disposition home or self-care (01) | LOC: LAB.R 07:00 | PROVIDERS: ATTEND Internal Medicine | DX: R19.7 Diarrhea, unspecified (principal) | CPT/HCPCS: 87493 ==

== ENCOUNTER 2019-02-21 15:25 | Emergency (ER) | payer MEDICARE, OTHER ==
[2019-02-21 15:33] VITALS: BP 140/79
== END 2019-02-21 16:02 | disposition left against medical advice (07) ==
LOC: ED 15:25
DX: Z53.21 Procedure and treatment not carried out due to patient leaving prior to being seen by health care provider (principal)
CPT/HCPCS: 93005

== ENCOUNTER 2019-03-18 10:25 | Outpatient (CLI) | payer MEDICARE, OTHER | END 2019-03-18 23:59 | disposition home or self-care (01) | LOC: LAB.R 10:25 | PROVIDERS: ATTEND Internal Medicine | DX: Z12.11 Encounter for screening for malignant neoplasm of colon (principal); Z12.12 Encounter for screening for malignant neoplasm of rectum; R19.7 Diarrhea, unspecified | CPT/HCPCS: 82274; 87493 ==

== ENCOUNTER 2019-04-19 12:00 | Outpatient (CLI) | payer MEDICARE, OTHER | END 2019-04-19 12:01 | disposition critical access hospital (66) | LOC: EMS 12:00 | PROVIDERS: ATTEND Surgery | DX: R10.9 Unspecified abdominal pain (principal); R39.89 Other symptoms and signs involving the genitourinary system | CPT/HCPCS: A0425; A0429 ==

== ENCOUNTER 2019-04-19 12:15 | Emergency (ER) | payer MEDICARE, OTHER ==
[2019-04-19 12:36] LABS: BASOPHILS % (AUTO) 0.4 %; EOSINOPHILS # (AUTO) 0.1 10^3/uL (0.0-0.7); EOSINOPHILS % (AUTO) 1.2 %; HGB - HEMOGLOBIN 14.1 g/dL (12.0-16.0); LYMPHOCYTES # (AUTO) 1.8 10^3/uL (1.5-3.5); LYMPHOCYTES % (AUTO) 24.7 %; MEAN CORPUSCULAR HEMOGLOBIN 30.7 pg (27.0-31.0); MEAN CORPUSCULAR HGB CONC 31.3 g/dL (32.0-36.0); MEAN PLATELET VOLUME 9.5 fL (7.9-10.8); MONOCYTES # (AUTO) 0.5 10^3/uL (0.0-1.0); MONOCYTES % (AUTO) 6.6 %; NEUTROPHILS % (AUTO) 66.7 %; PLT - PLATELET COUNT 268 10^3/uL (130-450); RED BLOOD COUNT 4.59 10^6/uL (4.20-5.40); RED CELL DISTRIBUTION WIDTH 12.9 % (12.0-15.0); WHITE BLOOD COUNT 7.4 x10^3/uL (4.8-10.8)
[2019-04-19 12:53] LABS: ALBUMIN 3.8 g/dL (3.2-5.5); BILIRUBIN,TOTAL 0.4 mg/dL (0.2-1.0); CALCIUM 9.2 mg/dL (8.5-10.3); CREATININE 0.9 mg/dL (0.4-1.0); TOTAL PROTEIN 7.8 g/dL (6.7-8.2)
--- NOTE | 2019-04-19 13:13 | ED Physician Documentation ---
History of Present Illness - Stated complaint Stated Complaint: ABD PAIN/ BLADDER PAIN - Chief complaint Chief Complaint: Abd Pain - Additonal information Additional information: This is a 69-year-old female history of fibromyalgia, C. difficile status post several rounds of vancomycin oral therapy, who presents with some lower abdominal discomfort. Patient states that she has had abdominal pain for months, and for months she is also had some dysuria/urgency when she first wakes up in the morning. She is seen a urologist and had cystoscopy as well has testing done which was unrevealing. Patient is also had multiple abdominal CT scans done and she follows with a enterologist who has not been able to figure out her abdominal discomfort. She presents today because the abdominal discomfort recurred and she wanted a second opinion. She states that Dilaudid is the medication that works best to take her pain away. She continues to have several episodes of loose stool daily, but this is stable and improved from prior. Review of Systems Constitutional: denies: Fever Respiratory: denies: Dyspnea GI: reports: Abdominal Pain : reports: Other (Urgency) Skin: denies: Rash PD PAST MEDICAL HISTORY - Past Medical History Cardiovascular: Hypertension, High cholesterol Respiratory: None Neuro: None Endocrine/Autoimmune: None GI: Chronic diarrhea, Other : None HEENT: None Psych: Anxiety Musculoskeletal: Fibromyalgia, Chronic back pain Derm: None - Past Surgical History Past Surgical History: Yes General: Bowel surgery, Colonoscopy /[employer]: section HEENT: Tonsil/Adenoidectomy - Present Medications Home Medications: Ambulatory Orders Medication Instructions Recorded Confirmed Propranolol [Inderal] 10 mg ORAL BID 03/04/16 05/15/17 Dicyclomine [Bentyl] 10 mg PO Q8H PRN #20 capsule 05/15/17 Phenazopyridine HCl 200 mg PO TID PRN #10 tablet 11/07/17 Dicyclomine [Bentyl] 10 mg PO QID PRN #20 capsule 08/29/18 Ondansetron Odt [Zofran] 4 mg TL Q6H PRN #10 tablet 08/29/18 Phenazopyridine HCl [Pyridium] 200 mg PO TID PRN #6 tablet 08/29/18 LORazepam [Ativan] 1 mg PO Q8HR PRN #20 tablet 09/01/18 Methocarbamol [Robaxin-750] 750 mg PO TID PRN #20 tablet 09/01/18 Oxycodone HCl/Acetaminophen 1 - 2 each PO Q6H PRN #14 tablet 09/01/18 [Percocet 5-325 mg Tablet] Ondansetron Odt [Zofran] 4 mg TL Q6H PRN #10 tablet 09/04/18 Oxycodone HCl/Acetaminophen 1 - 2 each PO Q6H PRN #20 tablet 09/04/18 [Percocet 5-325 mg Tablet] predniSONE [Deltasone] 10 mg PO [id number] #42 tab 09/04/18 LORazepam [Ativan] 1 mg PO BID PRN #14 tablet 09/07/18 Naproxen 375 mg PO BID #15 tablet 09/07/18 Oxybutynin [Ditropan] 5 mg PO BID #10 tablet 09/07/18 Oxycodone HCl/Acetaminophen 1 each PO Q6H PRN #14 tablet 09/07/18 [Percocet 5-325 mg Tablet] Phenazopyridine HCl [Pyridium] 100 mg PO TID #15 tablet 09/07/18 Cephalexin [Keflex] 500 mg PO BID #14 capsule 09/11/18 Hyoscyamine Sulfate [Levsin-Sl] 0.125 mg SL Q6H PRN #14 tab.subl 11/28/18 Meloxicam [Mobic] 15 mg PO DAILY PRN #20 tablet 11/28/18 Ondansetron Odt [Zofran] 4 mg TL Q6H PRN #10 tablet 11/28/18 Oxybutynin [Ditropan] 5 mg PO BID #14 tablet 12/01/18 Oxycodone HCl/Acetaminophen 1 each PO QID PRN #20 tablet 12/01/18 [Percocet 10-325 mg Tablet] Oxycodone HCl/Acetaminophen 1 each PO Q6HR PRN #7 tablet 12/07/18 [Oxycodone-Acetaminophen 10-325] Dicyclomine [Bentyl] 10 mg PO QID PRN #20 capsule 01/01/19 Promethazine [Phenergan] 25 mg PO Q6H PRN #20 tab 01/01/19 Vancomycin [Vancocin] 125 mg PO QID #40 capsule 01/01/19 dexAMETHasone [Decadron] 4 mg PO DAILY #5 tablet 01/01/19 Cephalexin [Keflex] 500 mg PO Q6H #20 capsule 04/19/19 - Allergies Allergies/Adverse Reactions: Allergies Allergy/AdvReac Type Severity Reaction Status Date / Time amoxicillin trihydrate * Allergy Intermediate Emesis, Verified 04/19/19 12:20 [From Augmentin] nausea erythromycin base Allergy Intermediate Emesis, Verified 04/19/19 12:20 [Erythromycin Base] nausea morphine Allergy Intermediate Hallucinati Verified 04/19/19 12:20 ons potassium clavulanate * Allergy Intermediate Emesis, Verified 04/19/19 12:20 [From Augmentin] nausea Sulfa (Sulfonamide Allergy Nausea Verified 04/19/19 12:20 Antibiotics) iodine AdvReac Severe Hives Verified 04/19/19 12:20 ciprofloxacin [From Cipro] AdvReac Nausea Verified 04/19/19 12:20 - Social History Does the pt smoke?: Yes Smoking Status: Current every day smoker Does the pt drink ETOH?: No Does the pt have substance abuse?: No - Immunizations Immunizations are current?: Yes - POLST Patient has POLST: No PD ED PE NORMAL - Vitals Vital signs reviewed: Yes - General General: Alert and oriented X 3 - HEENT HEENT: Atraumatic - Neck Neck: Supple, no meningeal sign - Cardiac Cardiac: RRR - Respiratory Respiratory: No respiratory distress, Clear bilaterally - Abdomen Abdomen: Soft, Other (Very mild suprapubic tenderness, otherwise the remainder of the abdomen is nontender to palpation. There is no guarding.) - Extremities Extremities: No deformity - Neuro Neuro: Alert and oriented X 3 Results - Vitals Vitals: Oxygen O2 Source Room air - Labs Labs: Microbiology 04/19/19 13:27 Urine Culture - Preliminary Urine,Clean Catch Laboratory Tests 04/19/19 04/19/19 04/19/19 12:32 12:32 13:27 WBC 7.4 RBC 4.59 Hgb 14.1 Hct 45.0 MCV 98.0 MCH 30.7 MCHC 31.3 L RDW 12.9 Plt Count 268 MPV 9.5 Neut # (Auto) 5.0 Lymph # (Auto) 1.8 [place] # (Auto) 0.5 Eos # (Auto) 0.1 Baso # (Auto) 0.0 Absolute Nucleated RBC 0.00 Nucleated RBC % 0.0 Sodium 136 Potassium 3.9 Chloride 100 L Carbon Dioxide 28 Anion Gap 8.0 BUN 11 Creatinine 0.9 Estimated GFR (MDRD) 62 L Glucose 284 H Calcium 9.2 Total Bilirubin 0.4 AST 26 ALT 29 Alkaline Phosphatase 99 Total Protein 7.8 Albumin 3.8 Globulin 4.0 Albumin/Globulin Ratio 1.0 Lipase 37 Urine Color DARK YELLOW Urine Clarity HAZY Urine pH 6.5 Ur Specific [place] 1.025 Urine Protein TRACE Urine Glucose (UA) 250 H Urine Ketones TRACE Urine Occult Blood NEGATIVE Urine Nitrite POSITIVE H Urine Bilirubin NEGATIVE Urine Urobilinogen 0.2 (NORMAL) Ur Leukocyte Esterase NEGATIVE Urine RBC 0-5 Urine WBC 0-3 Ur Squamous Epith Cells FEW Squamous Urine Bacteria Moderate H Ur Microscopic Review INDICATED Urine Culture Comments INDICATED PD MEDICAL DECISION MAKING - ED course ED course: DDX: Urinary tract infection, pyelonephritis, diverticulitis, chronic abdominal pain, enteritis, appendicitis On arrival patient is well-appearing, she was tachycardic in triage. Labs are drawn, her CBC is unremarkable with no leukocytosis, chemistry panel also unremarkable other than some hyperglycemia. Her urine is positive for an infection with positive nitrites, which explains her urgency as well as her suprapubic discomfort. She has no flank pain, no fever, no other signs of pyelonephritis or more serious infection. On repeat examination her abdomen is benign. Oxycodone was not effective at controlling her pain, so she was given a dose of hydromorphone IM with relief. She was tolerating p.o. without issue. It sounds like she was slightly dehydrated previously, she is feeling better after medications here and she seems appropriate for outpatient therapy. Her heart rate has improved to the 90s on my repeat evaluation. I reviewed return precautions and follow-up with the patient, and she was discharged home in the care of her family I see the patient has had multiple glucose levels that have been elevated, but I do not see that she is on any medication for diabetes. I called the patient on 04/20/2019 at 18:00, And she confirms that she has not been diagnosed with diabetes or prediabetes. I discussed her elevated blood sugar and the fact that she needs to follow-up with her primary care provider soon as possible on this. Looking back at her records she has had elevations for months now, this does not appear to be a new acute issue, and there are no signs of DKA Or HHS. Patient appreciated the call, and she will follow-up with Dr. Cruz soon as possible. She states that her abdomen is feeling better and her appetite is improved, she continues to feel some diffuse weakness. I reviewed return precautions with the patient once again, And explained that she is welcome back in the emergency department for a recheck at any point and she agrees with this plan. Departure - Departure Disposition: Home, Self Care Clinical Impression: UTI (urinary tract infection) Qualifiers: Urinary tract infection type: acute cystitis Hematuria presence: without hematuria Qualified Code(s): N30.00 - Acute cystitis without hematuria Condition: Good Instructions: ED UTI Cystitis Female Follow-Up: Katie Cruz MD [Primary Care Provider] - Prescriptions: Cephalexin [Keflex] 500 mg PO Q6H #20 capsule Comments: You were seen today for pain in your lower abdomen, you have a UTI. Please take the antibiotic as prescribed. If you are having worsening symptoms or new concerning symptoms return to the emergency department. Otherwise please follow-up with your primary care provider Discharge Date/Time: 04/19/19 14:43
[2019-04-19] MEDS ORDERED: oxyCODONE 5 MG TABLET PO STA (13:27)
[2019-04-19] MEDS ORDERED: ACETAMINOPHEN 325 MG TABLET PO STA (13:27)
[2019-04-19 13:36] LABS: BILIRUBIN,URINE NEGATIVE (NEGATIVE); CLARITY,URINE HAZY (CLEAR); GLUCOSE, URINE (UA) 250 mg/dL (NEGATIVE); KETONES,URINE (UA) TRACE mg/dL (NEGATIVE); LEUKOCYTE ESTERASE, URINE NEGATIVE (NEGATIVE); NITRITE,URINE POSITIVE (NEGATIVE); OCCULT BLOOD,URINE NEGATIVE (NEGATIVE); PH,URINE 6.5 PH (5.0-7.5); PROTEIN,URINE TRACE mg/dL (NEGATIVE); UROBILINOGEN,URINE 0.2 (NORMAL) E.U./dL (NORMAL)
[2019-04-19 13:55] LABS: BACTERIA,URINE Moderate /HPF (None Seen); RBC,URINE 0-5 /HPF (0-5); SQUAMOUS EPITHELIAL CELL,UR FEW Squamous (<= Few)
[2019-04-19 14:26] VITALS: BP 153/86
[2019-04-19] MEDS ORDERED: HYDROmorphone 2 MG/ML VIAL IM STA (14:29)
[2019-04-19] MEDS ORDERED: cephALEXin 250 MG CAPSULE PO STA (14:30)
== END 2019-04-19 14:43 | disposition home or self-care (01) ==
LOC: EDUNIT# → ED 12:15
DX: N30.00 Acute cystitis without hematuria (principal); R73.9 Hyperglycemia, unspecified; R00.0 Tachycardia, unspecified; I10 Essential (primary) hypertension; M79.7 Fibromyalgia; Z87.19 Personal history of other diseases of the digestive system; F17.200 Nicotine dependence, unspecified, uncomplicated
CPT/HCPCS: 36415; 80053; 81001; 83690; 85025; 87077; 87086; 87181; 96372; 99283; 99284; A9270; J1170; 81003

== ENCOUNTER 2019-04-20 19:39 | Emergency (ER) | payer MEDICARE, OTHER ==
[2019-04-20 20:51] LABS: BASOPHILS % (AUTO) 0.4 %; EOSINOPHILS # (AUTO) 0.1 10^3/uL (0.0-0.7); EOSINOPHILS % (AUTO) 1.3 %; HGB - HEMOGLOBIN 13.3 g/dL (12.0-16.0); LYMPHOCYTES # (AUTO) 1.9 10^3/uL (1.5-3.5); LYMPHOCYTES % (AUTO) 28.1 %; MEAN CORPUSCULAR HEMOGLOBIN 30.3 pg (27.0-31.0); MEAN CORPUSCULAR HGB CONC 31.2 g/dL (32.0-36.0); MEAN PLATELET VOLUME 9.5 fL (7.9-10.8); MONOCYTES # (AUTO) 0.6 10^3/uL (0.0-1.0); MONOCYTES % (AUTO) 8.2 %; NEUTROPHILS # (AUTO) 4.2 10^3/uL (1.5-6.6); NEUTROPHILS % (AUTO) 61.7 %; PLT - PLATELET COUNT 245 10^3/uL (130-450); RED BLOOD COUNT 4.39 10^6/uL (4.20-5.40); RED CELL DISTRIBUTION WIDTH 12.9 % (12.0-15.0); WHITE BLOOD COUNT 6.8 x10^3/uL (4.8-10.8)
[2019-04-20 20:53] LABS: VBG PH 7.381 (7.31-7.41)
[2019-04-20 20:54] LABS: VBG BASE EXCESS 3.5 mmol/L (-2 - +2); VBG PCO2 51.4 mmHg (41-51); VBG PO2 42.1 mmHg (25-47); VBG TOTAL CO2 31.4 mmol/L (24-29)
[2019-04-20 21:03] LABS: KETONES, SERUM (ACETEST) NEGATIVE (NEGATIVE)
[2019-04-20 21:04] LABS: ALBUMIN 3.4 g/dL (3.2-5.5); ALKALINE PHOSPHATASE 84 IU/L (42-121); ALT ALANINE AMINOTRANSFERASE 27 IU/L (10-60); AST ASPARTATE AMINOTRANSFERASE 24 IU/L (10-42); BILIRUBIN,TOTAL 0.3 mg/dL (0.2-1.0); BUN - BLOOD UREA NITROGEN 14 mg/dL (6-20); CALCIUM 8.9 mg/dL (8.5-10.3); CARBON DIOXIDE - CO2 31 mmol/L (21-32); CHLORIDE 103 mmol/L (101-111); CREATININE 0.8 mg/dL (0.4-1.0); GFR - MDRD 72 (>89); GLUCOSE 213 mg/dL (70-100); LIPASE 24 U/L (22-51); SODIUM 140 mmol/L (135-145); TOTAL PROTEIN 6.9 g/dL (6.7-8.2)
[2019-04-20 21:11] LABS: HB2 TOTAL 13.9 g/dL; HEMOGLOBIN A1C 0.79 g/dL; HEMOGLOBIN A1C % 7.4 % (4.6-6.2)
[2019-04-20] MEDS ORDERED: SODIUM CHLORIDE 0.9% 1,000 ML IV ONE (21:26)
[2019-04-20] MEDS ORDERED: KETOROLAC 30 MG/ML VIAL IVP STA (21:38)
[2019-04-20] MEDS ORDERED: HYDROmorphone 1 MG/ML CARPUJECT IVP STA (21:38)
--- NOTE | 2019-04-20 22:12 | ED Physician Documentation ---
History of Present Illness - Stated complaint Stated Complaint: DIZZY/NAUSEA/BODY ACHE - Chief complaint Chief Complaint: General - History obtained from History obtained from: Patient - History of Present Illness Timing: Chronic Pain level max: 8 Pain level now: 8 - Additonal information Additional information: Patient with lower abdominal pain. This is been ongoing for quite some time. She is currently on antibiotics for UTI and currently being treated for C. difficile infection. No fevers. She also had an elevated blood sugar yesterday, states she has not been feeling well. Came back for evaluation. Review of Systems Constitutional: denies: Fever, Chills Respiratory: denies: Cough GI: denies: Vomiting, Hematemesis, Bloody / black stool Skin: denies: Rash Musculoskeletal: denies: Neck pain, Back pain Neurologic: denies: Headache PD PAST MEDICAL HISTORY - Past Medical History Past Medical History: Yes Cardiovascular: Hypertension, High cholesterol Respiratory: None Neuro: None Endocrine/Autoimmune: None GI: Chronic diarrhea, Other PORCELAIN FINISHER: None : Incontinence, Frequency HEENT: None Psych: Anxiety Musculoskeletal: Fibromyalgia, Chronic back pain Derm: None - Past Surgical History Past Surgical History: Yes General: Bowel surgery, Colonoscopy, EGD /PORCELAIN FINISHER: section HEENT: Tonsil/Adenoidectomy - Present Medications Home Medications: Ambulatory Orders Medication Instructions Recorded Confirmed Propranolol [Inderal] 10 mg ORAL BID 03/04/16 05/15/17 Dicyclomine [Bentyl] 10 mg PO Q8H PRN #20 capsule 05/15/17 Phenazopyridine HCl 200 mg PO TID PRN #10 tablet 11/07/17 Dicyclomine [Bentyl] 10 mg PO QID PRN #20 capsule 08/29/18 Ondansetron Odt [Zofran] 4 mg TL Q6H PRN #10 tablet 08/29/18 Phenazopyridine HCl [Pyridium] 200 mg PO TID PRN #6 tablet 08/29/18 LORazepam [Ativan] 1 mg PO Q8HR PRN #20 tablet 09/01/18 Methocarbamol [Robaxin-750] 750 mg PO TID PRN #20 tablet 09/01/18 Oxycodone HCl/Acetaminophen 1 - 2 each PO Q6H PRN #14 tablet 09/01/18 [Percocet 5-325 mg Tablet] Ondansetron Odt [Zofran] 4 mg TL Q6H PRN #10 tablet 09/04/18 Oxycodone HCl/Acetaminophen 1 - 2 each PO Q6H PRN #20 tablet 09/04/18 [Percocet 5-325 mg Tablet] predniSONE [Deltasone] 10 mg PO [id number] #42 tab 09/04/18 LORazepam [Ativan] 1 mg PO BID PRN #14 tablet 09/07/18 Naproxen 375 mg PO BID #15 tablet 09/07/18 Oxybutynin [Ditropan] 5 mg PO BID #10 tablet 09/07/18 Oxycodone HCl/Acetaminophen 1 each PO Q6H PRN #14 tablet 09/07/18 [Percocet 5-325 mg Tablet] Phenazopyridine HCl [Pyridium] 100 mg PO TID #15 tablet 09/07/18 Cephalexin [Keflex] 500 mg PO BID #14 capsule 09/11/18 Hyoscyamine Sulfate [Levsin-Sl] 0.125 mg SL Q6H PRN #14 tab.subl 11/28/18 Meloxicam [Mobic] 15 mg PO DAILY PRN #20 tablet 11/28/18 Ondansetron Odt [Zofran] 4 mg TL Q6H PRN #10 tablet 11/28/18 Oxybutynin [Ditropan] 5 mg PO BID #14 tablet 12/01/18 Oxycodone HCl/Acetaminophen 1 each PO QID PRN #20 tablet 12/01/18 [Percocet 10-325 mg Tablet] Oxycodone HCl/Acetaminophen 1 each PO Q6HR PRN #7 tablet 12/07/18 [Oxycodone-Acetaminophen 10-325] Dicyclomine [Bentyl] 10 mg PO QID PRN #20 capsule 01/01/19 Promethazine [Phenergan] 25 mg PO Q6H PRN #20 tab 01/01/19 Vancomycin [Vancocin] 125 mg PO QID #40 capsule 01/01/19 dexAMETHasone [Decadron] 4 mg PO DAILY #5 tablet 01/01/19 Cephalexin [Keflex] 500 mg PO Q6H #20 capsule 04/19/19 HYDROmorphone [Dilaudid] 2 mg PO Q6H PRN #3 tablet 04/20/19 Metformin HCl 500 mg PO BID #20 tablet 04/20/19 - Allergies Allergies/Adverse Reactions: Allergies Allergy/AdvReac Type Severity Reaction Status Date / Time amoxicillin trihydrate * Allergy Intermediate Emesis, Verified 04/20/19 19:54 [From Augmentin] nausea erythromycin base Allergy Intermediate Emesis, Verified 04/20/19 19:54 [Erythromycin Base] nausea morphine Allergy Intermediate Hallucinati Verified 04/20/19 19:54 ons potassium clavulanate * Allergy Intermediate Emesis, Verified 04/20/19 19:54 [From Augmentin] nausea Sulfa (Sulfonamide Allergy Nausea Verified 04/19/19 12:20 Antibiotics) iodine AdvReac Severe Hives Verified 04/20/19 19:54 ciprofloxacin [From Cipro] AdvReac Nausea Verified 04/20/19 19:54 - Social History Does the pt smoke?: Yes Smoking Status: Current every day smoker Does the pt drink ETOH?: No Does the pt have substance abuse?: No - Immunizations Immunizations are current?: Yes - POLST Patient has POLST: No PD ED PE NORMAL - Vitals Vital signs reviewed: Yes - General General: Alert and oriented X 3, No acute distress, Well developed/nourished - HEENT HEENT: PERRL, Moist mucous membranes - Neck Neck: Supple, no meningeal sign - Cardiac Cardiac: RRR, Strong equal pulses - Respiratory Respiratory: No respiratory distress, Clear bilaterally - Abdomen Abdomen: Soft, Non tender, Non distended - Back Back: No CVA TTP, No spinal TTP - Derm Derm: Warm and dry - Extremities Extremities: No calf tenderness / cord - Neuro Neuro: Alert and oriented X 3 - Psych Psych: Normal mood, Normal affect Results - Vitals Vitals: Vital Signs - 24 hr 04/20/19 04/20/19 19:50 22:14 Temperature 37.2 C 37 C Heart Rate 93 78 Respiratory 16 20 Rate Blood Pressure 118/76 113/79 O2 Saturation 96 96 Oxygen O2 Source Room air - Labs Labs: Laboratory Tests 04/20/19 04/20/19 04/20/19 20:45 20:45 20:45 WBC 6.8 RBC 4.39 Hgb 13.3 Hct 42.6 MCV 97.0 MCH 30.3 MCHC 31.2 L RDW 12.9 Plt Count 245 MPV 9.5 Neut # (Auto) 4.2 Lymph # (Auto) 1.9 [place] # (Auto) 0.6 Eos # (Auto) 0.1 Baso # (Auto) 0.0 Absolute Nucleated RBC 0.00 Nucleated RBC % 0.0 VBG pH 7.381 VBG pCO2 51.4 H VBG pO2 42.1 VBG HCO3 29.8 H VBG Total CO2 31.4 H VBG O2 Saturation 82.3 H VBG Base Excess 3.5 H Sodium 140 Potassium 4.0 Chloride 103 Carbon Dioxide 31 Anion Gap 6.0 BUN 14 Creatinine 0.8 Estimated GFR (MDRD) 72 L Glucose 213 H Glycated Hemoglobin Estim Average Glucose Calcium 8.9 Total Bilirubin 0.3 AST 24 ALT 27 Alkaline Phosphatase 84 Total Protein 6.9 Albumin 3.4 Globulin 3.5 Albumin/Globulin Ratio 1.0 Lipase 24 Serum Ketones NEGATIVE 04/20/19 20:45 WBC RBC Hgb Hct MCV MCH MCHC RDW Plt Count MPV Neut # (Auto) Lymph # (Auto) [place] # (Auto) Eos # (Auto) Baso # (Auto) Absolute Nucleated RBC Nucleated RBC % VBG pH VBG pCO2 VBG pO2 VBG HCO3 VBG Total CO2 VBG O2 Saturation VBG Base Excess Sodium Potassium Chloride Carbon Dioxide Anion Gap BUN Creatinine Estimated GFR (MDRD) Glucose Glycated Hemoglobin 7.4 H Estim Average Glucose 166 H Calcium Total Bilirubin AST ALT Alkaline Phosphatase Total Protein Albumin Globulin Albumin/Globulin Ratio Lipase Serum Ketones PD MEDICAL DECISION MAKING - ED course Complexity details: reviewed results, re-evaluated patient, considered differential, d/w patient, d/w family ED course: 69-year-old female presents to the emergency chronic abdominal pain. Feels better after IV fluids and IV pain medication. Will prescribe a small amount of pain medication for her for home. She will follow-up with her doctor on Monday for a care management plan. Her hemoglobin A1c is 7.4. We will start her on a low-dose of metformin. She was counseled regarding dietary changes as well. Patient is well-appearing, nontoxic. Afebrile. Patient counseled regarding signs and symptoms for which I believe and urgent re-evaluation would be necessary. Patient with good understanding of and agreement to plan and is comfortable going home at this time This document was made in part using voice recognition software. While efforts are made to proofread this document, sound alike and grammatical errors may occur. Departure - Departure Disposition: 01 Home, Self Care Clinical Impression: Hyperglycemia Condition: Good Instructions: ED Hyperglycemia New Susp Diabetes Follow-Up: Katie Cruz MD [Primary Care Provider] - Within 1 week Prescriptions: HYDROmorphone [Dilaudid] 2 mg PO Q6H PRN #3 tablet PRN Reason: Abdominal Pain Metformin HCl 500 mg PO BID #20 tablet Comments: It does appear that you are likely diabetic. Your hemoglobin A1c is 7.4 which is elevated. We will start you on metformin. We will have you follow-up with your doctor for further care. You should look into following a plant based diet. This will help your weight and your diabetes. It will also help your pain. [email or web address]/ https://nutritionstudies.org/ have more information about this. Do not drink alcohol or drive while on narcotic pain medicine. Note that many narcotic pain relievers also contain tylenol/acetaminophen. Please ensure that your total dose of acetaminophen from all sources does not exceed 3 grams (3000mg) per day. You may constipated on this medication, take a stool softener such as "Colace" twice a day while you are on it. Also recommend a [id number] laxative such as senna or MiraLAX any day that you do not have a bowel movement. If you received narcotic pain medication in the emergency department, do not drive or operate machinery for the next 24 hours. Discharge Date/Time: 04/20/19 22:30
[2019-04-20 22:15] VITALS: BP 113/79
== END 2019-04-20 22:30 | disposition home or self-care (01) ==
LOC: ED 19:39
DX: R10.9 Unspecified abdominal pain (principal); G89.29 Other chronic pain; R73.9 Hyperglycemia, unspecified; I10 Essential (primary) hypertension; F17.200 Nicotine dependence, unspecified, uncomplicated
CPT/HCPCS: 36415; 80053; 82009; 82803; 83036; 83690; 85025; 96374; 99283; 99284; J1170

== ENCOUNTER 2019-04-23 04:21 | Emergency (ER) | payer MEDICARE, OTHER ==
[2019-04-23] MEDS ORDERED: SODIUM CHLORIDE 0.9% 1,000 ML IV ONE ×2 (05:09→06:10)
[2019-04-23] MEDS ORDERED: ONDANSETRON 4 MG/2 ML VIAL IVP STA (05:09)
[2019-04-23] MEDS ORDERED: HYDROmorphone 1 MG/ML CARPUJECT IVP STA ×2 (05:09→07:35)
--- NOTE | 2019-04-23 05:14 | ED Physician Documentation ---
PD HPI ABD PAIN - Stated complaint Stated Complaint: LOW AB PX - Chief complaint Chief Complaint: Abd Pain - History obtained from History obtained from: Patient, Family - History of Present Illness Timing - onset: How many weeks ago (1) Timing - duration: Years (1) Timing - details: Gradual onset, Still present Quality: Cramping, Aching, Sharp, Pain Location: Suprapubic Radiation: Lower back Improved by: Meds Associated symptoms: Diarrhea Similar symptoms before: Diagnosis (interstitial cystitis, UTI, C. diff.) Recently seen: Emergency Dept - Additional information Additional information: 69-year-old female with a year long history of urinary urgency frequency dysuria and dribbling has lower abdominal pain associated with this and she has had multiple work-ups. She has been seen by a urologist and a bias cutting machine operator vertical. She indicates that she has not had a diagnosis of interstitial cystitis and she has recently had a diagnosis of C. difficile colitis and was on a course of vancomycin orally and she tapered off of this last week and subsequently started a course of Keflex for a urinary tract infection that she was seen here in the emergency department for. That urinary tract infection grew a pathologic Klebsiella sensitive to the Keflex. The patient indicates that she has been on 4 courses of vancomycin for the C. difficile colitis. She has instructions to provide a stool sample to the bias cutting machine operator vertical later today. Her lower pelvic cramping pain was so severe this morning that she came to the emergency dep artment for treatment. She indicates that previously Dilaudid has helped tremendously with this and did not help at all when it was given orally. The patient also indicates that she has started metformin twice per day after recent visit to the emergency department. At that time her A1c was 7.4. She has not tried estrogen for her urinary symptoms. Review of Systems Constitutional: denies: Fever Eyes: denies: Decreased vision Ears: denies: Ear pain Nose: denies: Rhinorrhea / runny nose, Congestion Throat: denies: Sore throat Cardiac: denies: Chest pain / pressure, Palpitations Respiratory: denies: Dyspnea, Cough GI: reports: Abdominal Pain, Diarrhea : reports: Dysuria, Frequency, Hesitancy Skin: denies: Rash Musculoskeletal: reports: Back pain. 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: None : Incontinence, Frequency HEENT: None Psych: Anxiety Musculoskeletal: Fibromyalgia, Chronic back pain Derm: None - Past Surgical History Past Surgical History: Yes General: Bowel surgery, Colonoscopy, EGD /ASSISTED SALES REPRESENTATIVE: section HEENT: Tonsil/Adenoidectomy - Present Medications Home Medications: Ambulatory Orders Medication Instructions Recorded Confirmed Propranolol [Inderal] 10 mg ORAL BID 03/04/16 05/15/17 Promethazine [Phenergan] 25 mg PO Q6H PRN #20 tab 01/01/19 Cephalexin [Keflex] 500 mg PO Q6H #20 capsule 04/19/19 Metformin HCl 500 mg PO BID #20 tablet 04/20/19 amLODIPine [Norvasc] 5 mg PO 04/23/19 - Allergies Allergies/Adverse Reactions: Allergies Allergy/AdvReac Type Severity Reaction Status Date / Time amoxicillin trihydrate * Allergy Intermediate Emesis, Verified 04/20/19 19:54 [From Augmentin] nausea erythromycin base Allergy Intermediate Emesis, Verified 04/20/19 19:54 [Erythromycin Base] nausea morphine Allergy Intermediate Hallucinati Verified 04/20/19 19:54 ons potassium clavulanate * Allergy Intermediate Emesis, Verified 04/20/19 19:54 [From Augmentin] nausea Sulfa (Sulfonamide Allergy Nausea Verified 04/19/19 12:20 Antibiotics) iodine AdvReac Severe Hives Verified 04/20/19 19:54 ciprofloxacin [From Cipro] AdvReac Nausea Verified 04/20/19 19:54 - Social History Does the pt smoke?: Yes Smoking Status: Current every day smoker Does the pt drink ETOH?: No Does the pt have substance abuse?: No - Immunizations Immunizations are current?: Yes - POLST Patient has POLST: No PD ED PE NORMAL - Vitals Vital signs reviewed: Yes (tachy and hypertensive ) - General General: Alert and oriented X 3, Well developed/nourished, Other (The room smells heavily of tobacco upon entering. The patient is lying supine on the gurney and appears to be in pain. She is accompanied today by her daughter.) - HEENT HEENT: Atraumatic, PERRL, EOMI - Neck Neck: Supple, no meningeal sign - Cardiac Cardiac: RRR, No murmur - Respiratory Respiratory: No respiratory distress, Clear bilaterally - Abdomen Abdomen: Normal bowel sounds, Soft, Non distended, No organomegaly, Other (mild suprapubic tenderness without gaurding or rebound. There is mottling of the lower abdomen from use of a heating pad) - Back Back: No CVA TTP, No spinal TTP - Derm Derm: Normal color, No rash - Extremities Extremities: No deformity, No tenderness to palpate, Normal ROM s pain, No edema, No calf tenderness / cord - Neuro Neuro: Alert and oriented X 3 Eye Opening: Spontaneous Motor: Obeys Commands Verbal: Oriented GCS Score: 15 - Psych Psych: Normal mood, Normal affect Results - Vitals Vitals: Vital Signs - 24 hr 04/23/19 04/23/19 06:23 07:26 Heart Rate 97 97 Respiratory 18 Rate Blood Pressure 100/67 O2 Saturation 93 94 Oxygen O2 Source Room air - Labs Labs: Laboratory Tests 04/23/19 04/23/19 04/23/19 05:19 05:19 06:55 WBC 8.4 RBC 4.48 Hgb 14.0 Hct 43.9 MCV 98.0 MCH 31.3 H MCHC 31.9 L RDW 12.9 Plt Count 254 MPV 9.6 Neut # (Auto) 5.8 Lymph # (Auto) 1.9 [place] # (Auto) 0.6 Eos # (Auto) 0.1 Baso # (Auto) 0.0 Absolute Nucleated RBC 0.00 Nucleated RBC % 0.0 Sodium 137 Potassium 3.8 Chloride 104 Carbon Dioxide 28 Anion Gap 5.0 L BUN 18 Creatinine 0.8 Estimated GFR (MDRD) 72 L Glucose 194 H Calcium 9.1 Total Bilirubin 0.4 AST 25 ALT 26 Alkaline Phosphatase 94 Total Protein 7.5 Albumin 3.7 Globulin 3.8 Albumin/Globulin Ratio 1.0 Lipase 24 Urine Color YELLOW Urine Clarity CLEAR Urine pH 5.5 Ur Specific [place] 1.020 Urine Protein NEGATIVE Urine Glucose (UA) NEGATIVE Urine Ketones NEGATIVE Urine Occult Blood NEGATIVE Urine Nitrite NEGATIVE Urine Bilirubin NEGATIVE Urine Urobilinogen 0.2 (NORMAL) Ur Leukocyte Esterase NEGATIVE Ur Microscopic Review NOT INDICATED Urine Culture Comments NOT INDICATED Procedures - Bedside sono Bedside sono by EMP: With use of bedside ultrasound the bladder is imaged there is urine in the bladder it is not over distended it is tender. - IVC sono (time) 0510 Bedside IVC sono: IVC measures (cm) (0.71), Significant dehydration (est >2 liter deficit) PD MEDICAL DECISION MAKING - ED course Complexity details: reviewed old records, reviewed results, re-evaluated patient, considered differential, d/w patient, d/w family ED course: 69 y/o female with chronic lower abdominal pain is markedly dehydrated on interrogation of the IVC and she has good relief of her pain with IV dilaudid and she is hydrated with 2 liters of saline. I have indicate to the patient that we are not able to provide pain medication for her chronic pain and she will follow up with her urologist, bias cutting machine operator vertical and PMD. I have asked the patient to see the ASSISTED SALES REPRESENTATIVE specialist about potential estrogen therapy if indicated for dysuria. Departure - Departure Disposition: 01 Home, Self Care Clinical Impression: Dehydration, Abdominal cramping, Hyperglycemia Condition: Stable Instructions: ED Abdominal Pain Unkn Cause, ED Dehydration, ED Diet Diabetic Follow-Up: Katie Cruz MD [Primary Care Provider] - Discharge Date/Time: 04/23/19 08:10
[2019-04-23 05:33] LABS: BASOPHILS % (AUTO) 0.4 %; EOSINOPHILS # (AUTO) 0.1 10^3/uL (0.0-0.7); EOSINOPHILS % (AUTO) 0.9 %; LYMPHOCYTES # (AUTO) 1.9 10^3/uL (1.5-3.5); MEAN CORPUSCULAR HEMOGLOBIN 31.3 pg (27.0-31.0); MEAN CORPUSCULAR HGB CONC 31.9 g/dL (32.0-36.0); MEAN PLATELET VOLUME 9.6 fL (7.9-10.8); MONOCYTES # (AUTO) 0.6 10^3/uL (0.0-1.0); MONOCYTES % (AUTO) 6.5 %; NEUTROPHILS # (AUTO) 5.8 10^3/uL (1.5-6.6); NEUTROPHILS % (AUTO) 68.8 %; PLT - PLATELET COUNT 254 10^3/uL (130-450); RED BLOOD COUNT 4.48 10^6/uL (4.20-5.40); RED CELL DISTRIBUTION WIDTH 12.9 % (12.0-15.0); WHITE BLOOD COUNT 8.4 x10^3/uL (4.8-10.8)
[2019-04-23 05:41] LABS: ALBUMIN 3.7 g/dL (3.2-5.5); BILIRUBIN,TOTAL 0.4 mg/dL (0.2-1.0); CALCIUM 9.1 mg/dL (8.5-10.3); CREATININE 0.8 mg/dL (0.4-1.0); TOTAL PROTEIN 7.5 g/dL (6.7-8.2)
[2019-04-23 07:13] LABS: BILIRUBIN,URINE NEGATIVE (NEGATIVE); GLUCOSE, URINE (UA) NEGATIVE (NEGATIVE); KETONES,URINE (UA) NEGATIVE (NEGATIVE); LEUKOCYTE ESTERASE, URINE NEGATIVE (NEGATIVE); NITRITE,URINE NEGATIVE (NEGATIVE); OCCULT BLOOD,URINE NEGATIVE (NEGATIVE); PH,URINE 5.5 PH (5.0-7.5); PROTEIN,URINE NEGATIVE (NEGATIVE); UROBILINOGEN,URINE 0.2 (NORMAL) E.U./dL (NORMAL)
[2019-04-23 07:17] LABS: CLARITY,URINE CLEAR (CLEAR)
[2019-04-23 07:27] VITALS: BP 100/67
== END 2019-04-23 08:10 | disposition home or self-care (01) ==
LOC: ED 04:21
DX: E86.0 Dehydration (principal); R10.30 Lower abdominal pain, unspecified; R73.9 Hyperglycemia, unspecified; F17.200 Nicotine dependence, unspecified, uncomplicated
CPT/HCPCS: 36415; 80053; 81003; 83690; 85025; 96361; 96374; 96376; 99284; J1170; 81001; 87086

== ENCOUNTER 2019-04-24 17:51 | Emergency (ER) | payer MEDICARE, OTHER ==
--- NOTE | 2019-04-24 18:19 | ED Physician Documentation ---
PD HPI ABD PAIN - Stated complaint Stated Complaint: LOWER EXTREMITY PX - Chief complaint Chief Complaint: Abd Pain - History obtained from History obtained from: Patient - History of Present Illness Timing - onset: Today (69-year-old woman with recent episode of UTI and C. difficile presents with lower abdominal pain that is been ongoing, but today it started radiating to the low back. It is not associated with diarrhea. She chronically has urinary hesitancy and frequency which is unchanged from prior. She is been nauseous. She notes no fever.) Review of Systems Constitutional: denies: Fever, Chills GI: reports: Abdominal Pain, Nausea. denies: Vomiting, Constipation, Diarrhea : reports: Frequency. denies: Dysuria PD PAST MEDICAL HISTORY - Past Medical History Cardiovascular: Hypertension, High cholesterol Respiratory: None Neuro: None Endocrine/Autoimmune: None GI: Chronic diarrhea, Other MEDICAL TERRITORY MANAGER: None : Incontinence, Frequency HEENT: None Psych: Anxiety Musculoskeletal: Fibromyalgia, Chronic back pain Derm: None - Past Surgical History Past Surgical History: Yes General: Bowel surgery, Colonoscopy, EGD /MEDICAL TERRITORY MANAGER: section HEENT: Tonsil/Adenoidectomy - Present Medications Home Medications: Ambulatory Orders Medication Instructions Recorded Confirmed Propranolol [Inderal] 10 mg ORAL BID 03/04/16 05/15/17 Promethazine [Phenergan] 25 mg PO Q6H PRN #20 tab 01/01/19 Cephalexin [Keflex] 500 mg PO Q6H #20 capsule 04/19/19 Metformin HCl 500 mg PO BID #20 tablet 04/20/19 amLODIPine [Norvasc] 5 mg PO 04/23/19 - Allergies Allergies/Adverse Reactions: Allergies Allergy/AdvReac Type Severity Reaction Status Date / Time amoxicillin trihydrate * Allergy Intermediate Emesis, Verified 04/24/19 17:54 [From Augmentin] nausea erythromycin base Allergy Intermediate Emesis, Verified 04/24/19 17:54 [Erythromycin Base] nausea morphine Allergy Intermediate Hallucinati Verified 04/24/19 17:54 ons potassium clavulanate * Allergy Intermediate Emesis, Verified 04/24/19 17:54 [From Augmentin] nausea Sulfa (Sulfonamide Allergy Nausea Verified 04/24/19 17:54 Antibiotics) iodine AdvReac Severe Hives Verified 04/24/19 17:54 ciprofloxacin [From Cipro] AdvReac Nausea Verified 04/24/19 17:54 - Social History Does the pt smoke?: Yes Smoking Status: Current every day smoker Does the pt drink ETOH?: No Does the pt have substance abuse?: No - Immunizations Immunizations are current?: Yes - POLST Patient has POLST: No PD ED PE NORMAL - Vitals Vital signs reviewed: Yes - General General: Alert and oriented X 3, No acute distress - Cardiac Cardiac: RRR, No murmur - Respiratory Respiratory: No respiratory distress, Clear bilaterally - Abdomen Abdomen: Normal bowel sounds, Soft, Non tender - Derm Derm: Normal color, Warm and dry - Extremities Extremities: No edema - Neuro Neuro: Alert and oriented X 3, Normal speech Results - Vitals Vitals: Vital Signs - 24 hr 04/24/19 04/24/19 17:54 18:21 Temperature 36.5 C 36.5 C Heart Rate 92 86 Respiratory 14 18 Rate Blood Pressure 147/88 H 141/75 H O2 Saturation 98 95 Oxygen O2 Source Room air - Labs Labs: Laboratory Tests 04/24/19 04/24/19 04/24/19 18:26 18:26 19:25 WBC 7.3 RBC 4.31 Hgb 13.3 Hct 42.3 MCV 98.1 MCH 30.9 MCHC 31.4 L RDW 12.8 Plt Count 238 MPV 9.2 Neut # (Auto) 5.0 Lymph # (Auto) 1.7 [place] # (Auto) 0.5 Eos # (Auto) 0.1 Baso # (Auto) 0.0 Absolute Nucleated RBC 0.00 Nucleated RBC % 0.0 Sodium 139 Potassium 4.1 Chloride 103 Carbon Dioxide 28 Anion Gap 8.0 BUN 12 Creatinine 0.7 Estimated GFR (MDRD) 83 L Glucose 131 H Calcium 9.2 Total Bilirubin 0.5 AST 32 ALT 30 Alkaline Phosphatase 84 Total Protein 7.1 Albumin 3.6 Globulin 3.5 Albumin/Globulin Ratio 1.0 Lipase 23 Urine Color LT. YELLOW Urine Clarity CLEAR Urine pH 5.5 Ur Specific [place] 1.010 Urine Protein NEGATIVE Urine Glucose (UA) NEGATIVE Urine Ketones NEGATIVE Urine Occult Blood NEGATIVE Urine Nitrite NEGATIVE Urine Bilirubin NEGATIVE Urine Urobilinogen 0.2 (NORMAL) Ur Leukocyte Esterase NEGATIVE Ur Microscopic Review NOT INDICATED Urine Culture Comments NOT INDICATED PD MEDICAL DECISION MAKING - ED course ED course: This 69-year-old woman presents with now basically chronic abdominal pain, records reviewed, this is her fourth visit in the last 8 days. She does not have diarrhea. Her urine culture from the third grew Klebsiella which was sensitive to everything except for ampicillin. She has a benign examination. She became very pushy almost immediately about receiving narcotic pain medication. Based on the frequency of her visits and benign examination I suggested Tylenol and she started arguing with me that it would not work. I told her in no uncertain terms that based on the frequency of her visits and recent diagnoses I was not willing to precribe or dispense narcotics. Thankfully her work-up was negative with normal labs and a negative urinalysis. Prior to discharge she was visibly upset with me that I was not giving her narcotics. I explained again why I was withholding narcotics, she promised to file a complaint against me. I advised that she follow-up with her primary care physician. Departure - Departure Disposition: 01 Home, Self Care Clinical Impression: Chronic abdominal pain Condition: Good Record reviewed to determine appropriate education?: Yes Instructions: ED Abdominal Pain Unkn Cause Comments: Your labs and urinalysis today are normal. The pain seems to be now chronic. Follow-up with your primary care physician and your stack matcher, next available appointment. Return for new or worsening symptoms. The policy of this emergency department is to not give more than 3 prescriptions for narcotics or other controlled substances in any 1 year. You have already surpassed this benchmark and we cannot prescribe narcotics for you. I encourage you to follow up with your primary care physician or to establish care with a primary care physician for ongoing pain management. You are always welcome to seek emergency care here for this or new issues but there will likely be limitations in the prescription of narcotic pain medication.
[2019-04-24] MEDS ORDERED: ACETAMINOPHEN 325 MG TABLET PO STA (18:20)
[2019-04-24] MEDS ORDERED: ONDANSETRON ODT 4 MG TABLET TL STA (18:20)
[2019-04-24 18:30] LABS: BASOPHILS % (AUTO) 0.3 %; EOSINOPHILS # (AUTO) 0.1 10^3/uL (0.0-0.7); EOSINOPHILS % (AUTO) 1.1 %; HGB - HEMOGLOBIN 13.3 g/dL (12.0-16.0); LYMPHOCYTES # (AUTO) 1.7 10^3/uL (1.5-3.5); LYMPHOCYTES % (AUTO) 22.8 %; MEAN CORPUSCULAR HEMOGLOBIN 30.9 pg (27.0-31.0); MEAN CORPUSCULAR HGB CONC 31.4 g/dL (32.0-36.0); MEAN CORPUSCULAR VOLUME 98.1 fL (81.0-99.0); MEAN PLATELET VOLUME 9.2 fL (7.9-10.8); MONOCYTES # (AUTO) 0.5 10^3/uL (0.0-1.0); MONOCYTES % (AUTO) 7.1 %; NEUTROPHILS % (AUTO) 68.3 %; PLT - PLATELET COUNT 238 10^3/uL (130-450); RED BLOOD COUNT 4.31 10^6/uL (4.20-5.40); RED CELL DISTRIBUTION WIDTH 12.8 % (12.0-15.0); WHITE BLOOD COUNT 7.3 x10^3/uL (4.8-10.8)
[2019-04-24 18:42] LABS: ALBUMIN 3.6 g/dL (3.2-5.5); BILIRUBIN,TOTAL 0.5 mg/dL (0.2-1.0); CALCIUM 9.2 mg/dL (8.5-10.3); CREATININE 0.7 mg/dL (0.4-1.0); TOTAL PROTEIN 7.1 g/dL (6.7-8.2)
[2019-04-24 19:35] LABS: BILIRUBIN,URINE NEGATIVE (NEGATIVE); GLUCOSE, URINE (UA) NEGATIVE (NEGATIVE); KETONES,URINE (UA) NEGATIVE (NEGATIVE); LEUKOCYTE ESTERASE, URINE NEGATIVE (NEGATIVE); NITRITE,URINE NEGATIVE (NEGATIVE); OCCULT BLOOD,URINE NEGATIVE (NEGATIVE); PH,URINE 5.5 PH (5.0-7.5); PROTEIN,URINE NEGATIVE (NEGATIVE); UROBILINOGEN,URINE 0.2 (NORMAL) E.U./dL (NORMAL)
[2019-04-24 19:37] LABS: CLARITY,URINE CLEAR (CLEAR)
[2019-04-24 19:55] VITALS: BP 157/83
== END 2019-04-24 19:55 | disposition home or self-care (01) ==
LOC: ED 17:51
DX: R10.30 Lower abdominal pain, unspecified (principal); G89.29 Other chronic pain; I10 Essential (primary) hypertension; F17.200 Nicotine dependence, unspecified, uncomplicated
CPT/HCPCS: 36415; 80053; 81003; 83690; 85025; 99283; A9270; Q0162; 81001; 87086

== ENCOUNTER 2019-05-04 10:37 | Emergency (ER) | payer MEDICARE, OTHER ==
--- NOTE | 2019-05-04 14:21 | ED Physician Documentation ---
History of Present Illness - Stated complaint Stated Complaint: ABD PX/DIARRHEA - Chief complaint Chief Complaint: Abd Pain - Additonal information Additional information: This is a 69-year-old female who is known to me, she has a history of hypertension, chronic diarrhea, past C. difficile infections, fibromyalgia, anxiety, who presents with a recurrence of her diarrhea and diffuse abdominal cramping. Patient states that she tested negative for C. difficile recently, but then 3 days after testing negative she developed multiple episodes of diarrhea and abdominal cramping consistent with her typical C. difficile symptoms. She was tested with Dr. Cruz this last week and she reportedly had a positive screening test, she comes in today with a stool sample for the outpatient test ordered by Dr. Cruz, she is hoping to drop the stool sample off to the lab. She also states she continues to have some diffuse abdominal cramping, and has had intermittent diarrhea as well. No blood in her stool, no vomiting, but she is nauseated. 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 : Incontinence, Frequency HEENT: None Psych: Anxiety Musculoskeletal: Fibromyalgia, Chronic back pain Derm: None - Past Surgical History Past Surgical History: Yes General: Bowel surgery, Colonoscopy, EGD /AIRPORT OPERATIONS DUTY MANAGER: section HEENT: Tonsil/Adenoidectomy - Present Medications Home Medications: Ambulatory Orders Medication Instructions Recorded Confirmed Propranolol [Inderal] 10 mg ORAL BID 03/04/16 05/15/17 Promethazine [Phenergan] 25 mg PO Q6H PRN #20 tab 01/01/19 Cephalexin [Keflex] 500 mg PO Q6H #20 capsule 04/19/19 Metformin HCl 500 mg PO BID #20 tablet 04/20/19 amLODIPine [Norvasc] 5 mg PO 04/23/19 - Allergies Allergies/Adverse Reactions: Allergies Allergy/AdvReac Type Severity Reaction Status Date / Time amoxicillin trihydrate * Allergy Intermediate Emesis, Verified 05/04/19 11:06 [From Augmentin] nausea erythromycin base Allergy Intermediate Emesis, Verified 05/04/19 11:06 [Erythromycin Base] nausea morphine Allergy Intermediate Hallucinati Verified 05/04/19 11:06 ons potassium clavulanate * Allergy Intermediate Emesis, Verified 05/04/19 11:06 [From Augmentin] nausea Sulfa (Sulfonamide Allergy Nausea Verified 05/04/19 11:06 Antibiotics) iodine AdvReac Severe Hives Verified 05/04/19 11:06 ciprofloxacin [From Cipro] AdvReac Nausea Verified 05/04/19 11:06 - Social History Does the pt smoke?: Yes Smoking Status: Current every day smoker Does the pt drink ETOH?: No Does the pt have substance abuse?: No - Immunizations Immunizations are current?: Yes - POLST Patient has POLST: No PD ED PE NORMAL - Vitals Vital signs reviewed: Yes - General General: Alert and oriented X 3, No acute distress - HEENT HEENT: PERRL - Neck Neck: Supple, no meningeal sign - Cardiac Cardiac: RRR, No murmur - Respiratory Respiratory: Clear bilaterally - Abdomen Abdomen: Soft, Other (Rotund, mild discomfort to palpation in all 4 quadrants, no guarding.) - Derm Derm: Warm and dry - Extremities Extremities: No deformity - Neuro Neuro: Alert and oriented X 3 - Psych Psych: Normal mood, Normal affect Results - Vitals Vitals: Oxygen O2 Source Room air - Labs Labs: Laboratory Tests 05/04/19 05/04/19 05/04/19 14:58 15:05 15:05 WBC 9.7 RBC 4.87 Hgb 14.7 Hct 45.9 MCV 94.3 MCH 30.2 MCHC 32.0 RDW 13.1 Plt Count 311 MPV 9.4 Neut # (Auto) 6.8 H Lymph # (Auto) 2.2 [place] # (Auto) 0.6 Eos # (Auto) 0.1 Baso # (Auto) 0.0 Absolute Nucleated RBC 0.00 Nucleated RBC % 0.0 Sodium 138 Potassium 3.5 Chloride 99 L Carbon Dioxide 25 Anion Gap 14.0 H BUN 11 Creatinine 0.7 Estimated GFR (MDRD) 83 L Glucose 132 H Calcium 9.8 Total Bilirubin 0.8 AST 33 ALT 36 Alkaline Phosphatase 84 Total Protein 9.1 H Albumin 4.8 Globulin 4.3 H Albumin/Globulin Ratio 1.1 Lipase 25 Urine Color YELLOW Urine Clarity HAZY Urine pH 6.0 Ur Specific [place] >=1.030 H Urine Protein 30 H Urine Glucose (UA) NEGATIVE Urine Ketones 40 H Urine Occult Blood NEGATIVE Urine Nitrite NEGATIVE Urine Bilirubin MODERATE H Urine Urobilinogen 0.2 (NORMAL) Ur Leukocyte Esterase NEGATIVE Urine RBC None Seen Urine WBC 0-3 Ur Squamous Epith Cells MANY Squamous H Urine Bacteria Few Urine Mucus Few Strands Ur Microscopic Review INDICATED Urine Culture Comments NOT INDICATED PD MEDICAL DECISION MAKING - ED course Complexity details: considered differential (C. diff, dehydration, abdominal cramping, electrolyte abnormality, enteritis) ED course: On arrival patient is well-appearing, in triage her vital signs are notable for mild tachycardia, on my exam the well-appearing with a normal heart rate. Her abdomen is soft, she has mild tenderness diffusely, no area of focal pain. She asks immediately for Dilaudid, I explained to her that I am comfortable only giving her 1 dose of p.o. oxycodone. I also gave her a dose of Zofran. It sounds like her symptoms of diarrhea and abdominal pain have been chronic, recurring, and have not changed from the time of her PCP visit and her visit to the ED today was in hopes of dropping off the stool sample and obtaining pain medications prior to her PCP follow up. Labs are reassuring with no leukocytosis, on repeat exam she is well-appearing with a benign abdomen. No signs of acute abdominal pathology today on labs or exam. We discussed how to drop off her stool sample with the lab. She requested narcotic pain medications for home, I explained that she has already suprassed the limit of our prescriptions from the ED and I do not feel comfortable prescribing any narcotic medications. I reviewed return precautions and PCP follow up and she was discharged home in the care of family in good condition. Departure - Departure Disposition: 01 Home, Self Care Clinical Impression: Diarrhea Qualifiers: Diarrhea type: unspecified type Qualified Code(s): R19.7 - Diarrhea, unspecified Condition: Good Instructions: ED Abdominal Pain Unkn Cause Follow-Up: Katie Cruz MD [Primary Care Provider] - Comments: You were seen today for diarrhea and abdominal discomfort. Your labs are reassuring at this time, your white blood cell count is normal. I do not see signs of urinary tract infection. You may continue to use Tylenol 650 mg every 6 hours as needed for pain, and the Compazine which was prescribed to you for the nausea. If you are developing fever or significantly worsening pain, return to the emergency department. 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 Discharge Date/Time: 05/04/19 16:32
[2019-05-04] MEDS ORDERED: oxyCODONE 5 MG TABLET PO STA (14:31)
[2019-05-04] MEDS ORDERED: ONDANSETRON ODT 4 MG TABLET TL STA (14:31)
[2019-05-04] MEDS ORDERED: SODIUM CHLORIDE 0.9% 1,000 ML IV ONE (14:33)
[2019-05-04 15:17] LABS: BASOPHILS % (AUTO) 0.4 %; EOSINOPHILS # (AUTO) 0.1 10^3/uL (0.0-0.7); EOSINOPHILS % (AUTO) 0.9 %; HGB - HEMOGLOBIN 14.7 g/dL (12.0-16.0); LYMPHOCYTES # (AUTO) 2.2 10^3/uL (1.5-3.5); LYMPHOCYTES % (AUTO) 22.5 %; MEAN CORPUSCULAR HEMOGLOBIN 30.2 pg (27.0-31.0); MEAN CORPUSCULAR VOLUME 94.3 fL (81.0-99.0); MEAN PLATELET VOLUME 9.4 fL (7.9-10.8); MONOCYTES # (AUTO) 0.6 10^3/uL (0.0-1.0); MONOCYTES % (AUTO) 6.4 %; NEUTROPHILS # (AUTO) 6.8 10^3/uL (1.5-6.6); NEUTROPHILS % (AUTO) 69.3 %; PLT - PLATELET COUNT 311 10^3/uL (130-450); RED BLOOD COUNT 4.87 10^6/uL (4.20-5.40); RED CELL DISTRIBUTION WIDTH 13.1 % (12.0-15.0); WHITE BLOOD COUNT 9.7 x10^3/uL (4.8-10.8)
[2019-05-04 15:17] LABS: GLUCOSE, URINE (UA) NEGATIVE (NEGATIVE); KETONES,URINE (UA) 40 mg/dL (NEGATIVE); LEUKOCYTE ESTERASE, URINE NEGATIVE (NEGATIVE); NITRITE,URINE NEGATIVE (NEGATIVE); OCCULT BLOOD,URINE NEGATIVE (NEGATIVE); PROTEIN,URINE 30 mg/dL (NEGATIVE); UROBILINOGEN,URINE 0.2 (NORMAL) E.U./dL (NORMAL)
[2019-05-04 15:24] LABS: BACTERIA,URINE Few /HPF (None Seen); CLARITY,URINE HAZY (CLEAR); ICTOTEST,URINE POSITIVE; MUCUS,URINE Few Strands; RBC,URINE None Seen /HPF (0-5); SQUAMOUS EPITHELIAL CELL,UR MANY Squamous (<= Few)
[2019-05-04 15:25] LABS: BILIRUBIN,URINE MODERATE (NEGATIVE)
[2019-05-04 15:29] LABS: ALBUMIN 4.8 g/dL (3.2-5.5); ALBUMIN/GLOBULIN RATIO 1.1 (1.0-2.2); BILIRUBIN,TOTAL 0.8 mg/dL (0.2-1.0); CALCIUM 9.8 mg/dL (8.5-10.3); CREATININE 0.7 mg/dL (0.4-1.0); TOTAL PROTEIN 9.1 g/dL (6.7-8.2)
[2019-05-04 15:54] VITALS: BP 128/53
== END 2019-05-04 16:32 | disposition home or self-care (01) ==
LOC: ED 10:37
DX: R19.7 Diarrhea, unspecified (principal); R10.84 Generalized abdominal pain; I10 Essential (primary) hypertension; M79.7 Fibromyalgia; F17.200 Nicotine dependence, unspecified, uncomplicated
CPT/HCPCS: 36415; 80053; 81001; 83690; 85025; 99283; 99284; A9270; Q0162; 81003; 87086

== ENCOUNTER 2019-05-06 07:00 | Outpatient (CLI) | payer MEDICARE, OTHER | END 2019-05-06 23:59 | disposition home or self-care (01) | LOC: LAB.R 07:00 | PROVIDERS: ATTEND Internal Medicine | DX: R19.7 Diarrhea, unspecified (principal) | CPT/HCPCS: 87493 ==

== ENCOUNTER 2019-05-27 14:00 | Outpatient (CLI) | payer MEDICARE, OTHER | END 2019-05-27 23:59 | disposition home or self-care (01) | LOC: LAB.R 14:00 | PROVIDERS: ATTEND Internal Medicine | DX: R19.7 Diarrhea, unspecified (principal) | CPT/HCPCS: 81599; 87324; 87449 ==

== ENCOUNTER 2019-05-31 13:20 | Outpatient (CLI) | payer MEDICARE, OTHER ==
--- NOTE | 2019-06-04 10:56 | Mammography Report ---
Reason: ROUTINE MAMMO Procedure Date: 05/31/2019 Accession Number: [id number] / [id number] Procedure: [facility]DAL[facility] - Screening Mammo w/Payam CPT Code: Final Report FULL RESULT: EXAM: Screening Mammo w/Payam DATE: 05/31/2019 2:07 PM CLINICAL HISTORY: Screening encounter. Family history of breast cancer in the mother at the age of 70. TECHNIQUE: (B) - Bilateral CC and MLO views were obtained. COMPARISON: 11/29/2012 through 12/01/2009. PARENCHYMAL PATTERN: (A) - The breast(s) demonstrate(s) scattered fibroglandular densities. FINDINGS: There are no suspicious masses, calcifications, or areas of distortion. IMPRESSION: Negative examination. BI-RADS category 1. RECOMMENDATION: (ANNUAL) - Recommend routine annual screening mammography. BI-RADS CATEGORY: (1) - Negative. STANDARD QUALIFYING STATEMENTS: 1. This examination was not reviewed with the aid of Computer-Aided Detection (CAD). 2. A negative or benign imaging report should not preclude biopsy if clinically suspicious findings are present. 3. Dense breasts may obscure an underlying neoplasm. 4. This examination was reviewed with the aid of 3D breast imaging (tomosynthesis).
== END 2019-05-31 13:21 | disposition home or self-care (01) ==
LOC: DI 13:20
PROVIDERS: ATTEND Internal Medicine
DX: Z12.31 Encounter for screening mammogram for malignant neoplasm of breast (principal); Z80.3 Family history of malignant neoplasm of breast
CPT/HCPCS: 77063; 77067

== ENCOUNTER 2019-06-21 13:33 | Emergency (ER) | payer MEDICARE, OTHER ==
--- NOTE | 2019-06-21 14:06 | ED Physician Documentation ---
PD HPI ABD PAIN - Stated complaint Stated Complaint: FEMALE - Chief complaint Chief Complaint: Abd Pain - History obtained from History obtained from: Patient - History of Present Illness Timing - onset: How many months ago (several) Timing - duration: Months Timing - details: Gradual onset, Still present (worse the past few days), Waxing and waning Quality: Cramping, Aching. No: Fullness/distended Location: Suprapubic, LLQ Radiation: Lower back Improved by: No: Eating Worsened by: No: Eating Associated symptoms: Nausea, Constipation, Dysuria, Loss of appetite, Weight loss. No: Fever, Vomiting, Diarrhea, Hematuria, Chest pain, Near syncope / syncope Similar symptoms before: No diagnosis (pt says no firm diagnosis.) Recently seen: Clinic (had been to Urologist recently and started on vaginal estrogen cream. Prior to that Urologist did cystoscopy without abn finding per pateint.) Review of Systems Constitutional: denies: Fever, Chills, Myalgias Nose: denies: Rhinorrhea / runny nose, Congestion Throat: denies: Sore throat Respiratory: denies: Cough : reports: Dysuria, Frequency. denies: Hematuria, Discharge Skin: denies: Rash, Lesions Musculoskeletal: denies: Back pain Neurologic: reports: Generalized weakness. denies: Focal weakness PD PAST MEDICAL HISTORY - Past Medical History Cardiovascular: Hypertension, High cholesterol Respiratory: None Neuro: None Endocrine/Autoimmune: None GI: Chronic diarrhea, Other LUGGER: None : Incontinence, Frequency HEENT: None Psych: Anxiety Musculoskeletal: Fibromyalgia, Chronic back pain Derm: None - Past Surgical History Past Surgical History: Yes General: Bowel surgery, Colonoscopy, EGD /LUGGER: section HEENT: Tonsil/Adenoidectomy - Present Medications Home Medications: Ambulatory Orders Medication Instructions Recorded Confirmed Propranolol [Inderal] 10 mg ORAL BID 03/04/16 05/15/17 Promethazine [Phenergan] 25 mg PO Q6H PRN #20 tab 01/01/19 Cephalexin [Keflex] 500 mg PO Q6H #20 capsule 04/19/19 Metformin HCl 500 mg PO BID #20 tablet 04/20/19 amLODIPine [Norvasc] 5 mg PO 04/23/19 Naproxen 375 mg PO BID #20 tablet 06/21/19 Ondansetron Odt [Zofran] 4 mg TL Q6H PRN #10 tablet 06/21/19 Phenazopyridine HCl [Pyridium] 100 mg PO TID PRN #24 tablet 06/21/19 - Allergies Allergies/Adverse Reactions: Allergies Allergy/AdvReac Type Severity Reaction Status Date / Time amoxicillin trihydrate * Allergy Intermediate Emesis, Verified 06/21/19 13:43 [From Augmentin] nausea erythromycin base Allergy Intermediate Emesis, Verified 06/21/19 13:43 [Erythromycin Base] nausea morphine Allergy Intermediate Hallucinati Verified 06/21/19 13:43 ons potassium clavulanate * Allergy Intermediate Emesis, Verified 06/21/19 13:43 [From Augmentin] nausea Sulfa (Sulfonamide Allergy Nausea Verified 06/21/19 13:43 Antibiotics) iodine AdvReac Severe Hives Verified 06/21/19 13:43 ciprofloxacin [From Cipro] AdvReac Nausea Verified 06/21/19 13:43 - Social History Does the pt smoke?: Yes Smoking Status: Current every day smoker Does the pt drink ETOH?: No Does the pt have substance abuse?: No - Immunizations Immunizations are current?: Yes - POLST Patient has POLST: No PD ED PE NORMAL - Vitals Vital signs reviewed: Yes - General General: Alert and oriented X 3, Well developed/nourished, Other (anxious and seems uncomfortable. Holds lower abd at times. ) - HEENT HEENT: Pharynx benign - Neck Neck: Supple, no meningeal sign, No adenopathy - Cardiac Cardiac: RRR, No murmur - Respiratory Respiratory: Clear bilaterally - Abdomen Abdomen: Normal bowel sounds, Soft, Non distended, No organomegaly, Other (tender lower abd/ suprapubic area. Some guarding; no rebound nor percussion tender. 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 ) - Back Back: No CVA TTP - Derm Derm: Normal color, Warm and dry - Extremities Extremities: No edema, No calf tenderness / cord - Neuro Neuro: Alert and oriented X 3, No motor deficit, Normal speech Results - Vitals Vitals: Vital Signs - 24 hr 06/21/19 06/21/19 06/21/19 13:39 15:25 16:38 Temperature 36.8 C 37 C Heart Rate 110 H 101 H 99 Respiratory 17 12 18 Rate Blood Pressure 161/80 H 151/86 H 134/75 H O2 Saturation 100 96 95 06/21/19 16:50 Temperature Heart Rate Respiratory Rate Blood Pressure O2 Saturation 96 Oxygen O2 Source Room air - Labs Labs: Laboratory Tests 06/21/19 06/21/19 06/21/19 14:53 14:59 14:59 WBC 7.6 RBC 4.18 L Hgb 12.9 Hct 40.7 MCV 97.4 MCH 30.9 MCHC 31.7 L RDW 14.6 Plt Count 249 MPV 9.1 Neut # (Auto) 5.2 Lymph # (Auto) 1.7 Green # (Auto) 0.6 Eos # (Auto) 0.1 Baso # (Auto) 0.0 Absolute Nucleated RBC 0.00 Nucleated RBC % 0.0 Sodium 139 Potassium 3.9 Chloride 103 Carbon Dioxide 29 Anion Gap 7.0 BUN 14 Creatinine 0.6 Estimated GFR (MDRD) 100 Glucose 142 H Calcium 9.3 Total Bilirubin 0.4 AST 21 ALT 22 Alkaline Phosphatase 64 Total Protein 7.6 Albumin 4.0 Globulin 3.6 Albumin/Globulin Ratio 1.1 Lipase 28 Urine Color YELLOW Urine Clarity CLEAR Urine pH 7.0 Ur Specific [place] 1.020 Urine Protein NEGATIVE Urine Glucose (UA) 100 H Urine Ketones NEGATIVE Urine Occult Blood NEGATIVE Urine Nitrite NEGATIVE Urine Bilirubin NEGATIVE Urine Urobilinogen 0.2 (NORMAL) Ur Leukocyte Esterase NEGATIVE Ur Microscopic Review NOT INDICATED Urine Culture Comments NOT INDICATED PD MEDICAL DECISION MAKING - ED course Complexity details: reviewed old records (our ED consensus is no Rx for pain meds. ), reviewed results (bladder scan shows some residual of 200 ml. No UTI on UA. ), considered differential, d/w patient Departure - Departure Disposition: 01 Home, Self Care Clinical Impression: Lower abdominal pain, Suprapubic abdominal burning sensation Condition: Stable Record reviewed to determine appropriate education?: Yes Instructions: ED Pelvic Pain [facility] Follow-Up: Katie Cruz MD [Primary Care Provider] - Prescriptions: Naproxen 375 mg PO BID #20 tablet Ondansetron Odt [Zofran] 4 mg TL Q6H PRN #10 tablet PRN Reason: Nausea / Vomiting Phenazopyridine HCl [Pyridium] 100 mg PO TID PRN #24 tablet PRN Reason: Abdominal Pain Comments: Stay well-hydrated. No signs of bladder infection at this time. He did have a mild retention of urine on the bladder scan. We will treat for potential inflammation or spasm of the bladder with naproxen anti-inflammatory and phenazopyridine numbing medicine. Ondansetron if needed for nausea. Follow-up with GI for endoscopy next week as planned. Follow-up with your primary care as well. Discharge Date/Time: 06/21/19 16:59
[2019-06-21] MEDS ORDERED: PHENAZOPYRIDINE 100 MG TABLET PO STA (14:39)
[2019-06-21] MEDS ORDERED: KETOROLAC 60 MG/2 ML VIAL IM STA (14:39)
[2019-06-21] MEDS ORDERED: PROMETHAZINE 25 MG/1 ML VIAL IM STA (14:39)
[2019-06-21 15:05] LABS: BASOPHILS % (AUTO) 0.4 %; EOSINOPHILS # (AUTO) 0.1 10^3/uL (0.0-0.7); EOSINOPHILS % (AUTO) 1.5 %; HGB - HEMOGLOBIN 12.9 g/dL (12.0-16.0); LYMPHOCYTES # (AUTO) 1.7 10^3/uL (1.5-3.5); LYMPHOCYTES % (AUTO) 22.2 %; MEAN CORPUSCULAR HEMOGLOBIN 30.9 pg (27.0-31.0); MEAN CORPUSCULAR HGB CONC 31.7 g/dL (32.0-36.0); MEAN CORPUSCULAR VOLUME 97.4 fL (81.0-99.0); MEAN PLATELET VOLUME 9.1 fL (7.9-10.8); MONOCYTES # (AUTO) 0.6 10^3/uL (0.0-1.0); MONOCYTES % (AUTO) 7.3 %; NEUTROPHILS # (AUTO) 5.2 10^3/uL (1.5-6.6); NEUTROPHILS % (AUTO) 68.2 %; PLT - PLATELET COUNT 249 10^3/uL (130-450); RED BLOOD COUNT 4.18 10^6/uL (4.20-5.40); RED CELL DISTRIBUTION WIDTH 14.6 % (12.0-15.0); WHITE BLOOD COUNT 7.6 x10^3/uL (4.8-10.8)
[2019-06-21 15:07] LABS: BILIRUBIN,URINE NEGATIVE (NEGATIVE); GLUCOSE, URINE (UA) 100 mg/dL (NEGATIVE); KETONES,URINE (UA) NEGATIVE (NEGATIVE); LEUKOCYTE ESTERASE, URINE NEGATIVE (NEGATIVE); NITRITE,URINE NEGATIVE (NEGATIVE); OCCULT BLOOD,URINE NEGATIVE (NEGATIVE); PROTEIN,URINE NEGATIVE (NEGATIVE); UROBILINOGEN,URINE 0.2 (NORMAL) E.U./dL (NORMAL)
[2019-06-21 15:13] LABS: CLARITY,URINE CLEAR (CLEAR)
[2019-06-21 15:20] LABS: ALBUMIN/GLOBULIN RATIO 1.1 (1.0-2.2); BILIRUBIN,TOTAL 0.4 mg/dL (0.2-1.0); CALCIUM 9.3 mg/dL (8.5-10.3); CREATININE 0.6 mg/dL (0.4-1.0); TOTAL PROTEIN 7.6 g/dL (6.7-8.2)
[2019-06-21] MEDS ORDERED: oxyCODONE 5 MG TABLET PO STA (16:27)
[2019-06-21 16:52] VITALS: BP 134/75
== END 2019-06-21 16:59 | disposition home or self-care (01) ==
LOC: ED 13:33
DX: R10.32 Left lower quadrant pain (principal); R20.8 Other disturbances of skin sensation; R33.9 Retention of urine, unspecified; R11.0 Nausea; I10 Essential (primary) hypertension; F17.200 Nicotine dependence, unspecified, uncomplicated
CPT/HCPCS: 36415; 51798; 80053; 81003; 83690; 85025; 96372; 99283; 99284; A9270; 81001; 87086

== ENCOUNTER 2019-08-18 20:10 | Emergency (ER) | payer MEDICARE, OTHER ==
[2019-08-18 20:18] VITALS: BP 142/73
--- NOTE | 2019-08-18 20:25 | ED Physician Documentation ---
PD HPI ABD PAIN - Stated complaint Stated Complaint: ABD PX - Chief complaint Chief Complaint: Abd Pain - History obtained from History obtained from: Patient - History of Present Illness Timing - onset: Today Pain level max: 10 Pain level now: 10 Quality: Pain Location: All over / everywhere Improved by: Other (Nothing) Worsened by: Other (Nothing) Associated symptoms: No: Fever, Nausea, Vomiting, Hematemesis, Diarrhea, Cons tipation Similar symptoms before: Diagnosis (Chronic abdominal pain) - Additional information Additional information: 69-year-old female with chronic abdominal pain. She states pain worsened today. She states that she needs oxycodone for her pain. No vomiting. No fevers. No diarrhea. No constipation. Nothing makes it better or worse. She states that she has seen GI, urology and her doctor with no cause of her symptoms found. She has had 19 emergency department visits in the last year most for similar symptoms. Work-ups are repeatedly normal. 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 : Incontinence, Frequency HEENT: None Psych: Anxiety Musculoskeletal: Fibromyalgia, Chronic back pain Derm: None - Past Surgical History Past Surgical History: Yes General: Bowel surgery, Colonoscopy, EGD /ORGAN PIPE MAKER METAL: section HEENT: Tonsil/Adenoidectomy - Present Medications Home Medications: Ambulatory Orders Medication Instructions Recorded Confirmed Propranolol [Inderal] 10 mg ORAL BID 03/04/16 05/15/17 Promethazine [Phenergan] 25 mg PO Q6H PRN #20 tab 01/01/19 Cephalexin [Keflex] 500 mg PO Q6H #20 capsule 04/19/19 Metformin HCl 500 mg PO BID #20 tablet 04/20/19 amLODIPine [Norvasc] 5 mg PO 04/23/19 Naproxen 375 mg PO BID #20 tablet 06/21/19 Ondansetron Odt [Zofran] 4 mg TL Q6H PRN #10 tablet 06/21/19 Phenazopyridine HCl [Pyridium] 100 mg PO TID PRN #24 tablet 06/21/19 - Allergies Allergies/Adverse Reactions: Allergies Allergy/AdvReac Type Severity Reaction Status Date / Time amoxicillin trihydrate * Allergy Intermediate Emesis, Verified 06/21/19 13:43 [From Augmentin] nausea erythromycin base Allergy Intermediate Emesis, Verified 06/21/19 13:43 [Erythromycin Base] nausea morphine Allergy Intermediate Hallucinati Verified 06/21/19 13:43 ons potassium clavulanate * Allergy Intermediate Emesis, Verified 06/21/19 13:43 [From Augmentin] nausea Sulfa (Sulfonamide Allergy Nausea Verified 06/21/19 13:43 Antibiotics) iodine AdvReac Severe Hives Verified 06/21/19 13:43 ciprofloxacin [From Cipro] AdvReac Nausea Verified 06/21/19 13:43 - Social History Does the pt smoke?: Yes Smoking Status: Current every day smoker Does the pt drink ETOH?: No Does the pt have substance abuse?: No - Immunizations Immunizations are current?: Yes - POLST Patient has POLST: No PD ED PE NORMAL - Vitals Vital signs reviewed: Yes - General General: Alert and oriented X 3, No acute distress, Well developed/nourished - HEENT HEENT: PERRL, Moist mucous membranes - Neck Neck: Supple, no meningeal sign - Cardiac Cardiac: RRR, Strong equal pulses - Respiratory Respiratory: No respiratory distress, Clear bilaterally - Abdomen Abdomen: Soft, Non distended, Other (Mild diffuse tenderness to palpation without peritoneal signs) - Back Back: No CVA TTP, No spinal TTP - Derm Derm: Warm and dry - Extremities Extremities: No calf tenderness / cord - Neuro Neuro: Alert and oriented X 3 - Psych Psych: Normal mood, Normal affect Results - Vitals Vitals: Vital Signs - 24 hr 08/18/19 20:16 Temperature 36.8 C Heart Rate 104 H Respiratory 18 Rate Blood Pressure 142/73 H O2 Saturation 96 Oxygen O2 Source Room air PD MEDICAL DECISION MAKING - ED course Complexity details: reviewed old records, considered differential, d/w patient ED course: Patient with chronic abdominal pain. She has been seen here 19 times in the past 12 months for same. She has been told that she will not receive narcotics. Patient began to attempt to bargain for oxycodone. I told her I was not going to give her narcotics for her chronic symptoms. She has had numerous normal work-ups in the past. There are no concerning features on her history and physical exam tonight. She needs to follow-up with her doctor tomorrow for further care. This document was made in part using voice recognition software. While efforts are made to proofread this document, sound alike and grammatical errors may occur. Departure - Departure Disposition: 01 Home, Self Care Clinical Impression: Chronic abdominal pain Condition: Good Instructions: ED Abdominal Pain Unkn Cause Follow-Up: Katie Cruz MD [Primary Care Provider] - Tomorrow Comments: Follow-up with Dr. Cruz tomorrow for further care. You have been to the emergency department 19 times in the last 12 months for similar symptoms. We will not be able to give you narcotics from the emergency department anymore as you have been instructed in the past as well.
[2019-08-18] MEDS ORDERED: KETOROLAC 30 MG/ML VIAL IM STA (20:32)
== END 2019-08-18 20:41 | disposition home or self-care (01) ==
LOC: ED 20:10
DX: R10.9 Unspecified abdominal pain (principal); G89.29 Other chronic pain; I10 Essential (primary) hypertension; F17.200 Nicotine dependence, unspecified, uncomplicated
CPT/HCPCS: 96372; 99283; 99284

== ENCOUNTER 2020-01-05 22:35 | Outpatient (CLI) | payer MEDICARE, OTHER | END 2020-01-05 22:36 | disposition critical access hospital (66) | LOC: EMS 22:35 | PROVIDERS: ATTEND Surgery | DX: M79.661 Pain in right lower leg (principal) | CPT/HCPCS: A0425; A0429 ==

== ENCOUNTER 2020-01-05 22:49 | Emergency (ER) | payer MEDICARE, OTHER ==
[2020-01-05] MEDS ORDERED: KETOROLAC 60 MG/2 ML VIAL IM STA (23:37)
--- NOTE | 2020-01-05 23:40 | ED Physician Documentation ---
History of Present Illness - Stated complaint Stated Complaint: R LEG PX - Chief complaint Chief Complaint: Ext Problem - History obtained from History obtained from: Patient - Additonal information Additional information: Patient comes emergency department complaining of right knee pain that started after she had been walking around at [employer] today. Patient states she felt okay walking at [employer], but after sitting down and resting for a while at home, she found that she had a lot of pain arcing below her patella when she stood up and walked. Patient states she can move the knee with when she is not bearing weight, but that hurts to bear weight. Patient denies any popping or snapping. She did not have any sort of injury whatsoever. Patient states that she seemed to be doing fine at [employer], though she does note that she does not walk very much. Patient has a history of chronic abdominal pain for which she sees urology and GI, and states that the only thing that ever works for her pain is oxycodone. Review of the patient's records reveals that the patient has been here many times for pain complaints and the consensus in emergency department has been no narcotics prescribed as an outpatient for chronic or unverifiable atraumatic pain. Review of Systems Ten Systems: 10 systems reviewed and negative Constitutional: reports: Reviewed and negative Eyes: reports: Reviewed and negative Ears: reports: Reviewed and negative Nose: reports: Reviewed and negative Throat: reports: Reviewed and negative Cardiac: reports: Reviewed and negative Respiratory: reports: Reviewed and negative GI: reports: Reviewed and negative : reports: Reviewed and negative Skin: reports: Reviewed and negative Musculoskeletal: reports: Joint pain (Right knee) Neurologic: reports: Reviewed and negative Psychiatric: reports: Reviewed and negative Endocrine: reports: Reviewed and negative Immunocompromised: reports: Reviewed and negative PD PAST MEDICAL HISTORY - Past Medical History Cardiovascular: Hypertension, High cholesterol Respiratory: None Neuro: None Endocrine/Autoimmune: None GI: Chronic diarrhea, 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 : Incontinence, Frequency HEENT: None Psych: Anxiety Musculoskeletal: Fibromyalgia, Chronic back pain Derm: None - Past Surgical History Past Surgical History: Yes General: Bowel surgery, Colonoscopy, EGD /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: 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 HEENT: Tonsil/Adenoidectomy - Present Medications Home Medications: Ambulatory Orders Medication Instructions Recorded Confirmed Propranolol [Inderal] 10 mg ORAL BID 03/04/16 05/15/17 Promethazine [Phenergan] 25 mg PO Q6H PRN #20 tab 01/01/19 Cephalexin [Keflex] 500 mg PO Q6H #20 capsule 04/19/19 Metformin HCl 500 mg PO BID #20 tablet 04/20/19 amLODIPine [Norvasc] 5 mg PO 04/23/19 Naproxen 375 mg PO BID #20 tablet 06/21/19 Ondansetron Odt [Zofran] 4 mg TL Q6H PRN #10 tablet 06/21/19 Phenazopyridine HCl [Pyridium] 100 mg PO TID PRN #24 tablet 06/21/19 - Allergies Allergies/Adverse Reactions: Allergies Allergy/AdvReac Type Severity Reaction Status Date / Time amoxicillin trihydrate * Allergy Intermediate Emesis, Verified 01/05/20 23:06 [From Augmentin] nausea erythromycin base Allergy Intermediate Emesis, Verified 01/05/20 23:06 [Erythromycin Base] nausea morphine Allergy Intermediate Hallucinati Verified 01/05/20 23:06 ons potassium clavulanate * Allergy Intermediate Emesis, Verified 01/05/20 23:06 [From Augmentin] nausea Sulfa (Sulfonamide Allergy Nausea Verified 01/05/20 23:06 Antibiotics) iodine AdvReac Severe Hives Verified 01/05/20 23:06 ciprofloxacin [From Cipro] AdvReac Nausea Verified 01/05/20 23:06 - Social History Does the pt smoke?: Yes Smoking Status: Current every day smoker Does the pt drink ETOH?: No Does the pt have substance abuse?: No - Immunizations Immunizations are current?: Yes - POLST Patient has POLST: No PD ED PE NORMAL - Vitals Vital signs reviewed: Yes - General General: Alert and oriented X 3, No acute distress - HEENT HEENT: Atraumatic, PERRL, EOMI, Moist mucous membranes - Neck Neck: Supple, no meningeal sign - Cardiac Cardiac: Strong equal pulses - Respiratory Respiratory: No respiratory distress - Derm Derm: Normal color, Warm and dry, No rash - Extremities Extremities: No deformity, No tenderness to palpate, Normal ROM s pain, No edema, No calf tenderness / cord, Other (Patient is noted to move her R knee briskly without any pain. Knees are symmetrical.) - Neuro Neuro: Alert and oriented X 3, manager er 2-12 intact, No motor deficit, No sensory deficit, Normal speech - Psych Psych: Normal mood, Normal affect Results - Vitals Vitals: Vital Signs - 24 hr 01/05/20 01/06/20 23:00 01:05 Temperature 36.9 C Heart Rate 95 88 Respiratory 18 16 Rate Blood Pressure 154/95 H 138/81 H O2 Saturation 98 98 Oxygen O2 Source Room air - Rads (name of study) R knee XR Radiology: Final report received, EMP read indepedently, See rad report (STS, effusion, both mild. Otherwise neg.) PD MEDICAL DECISION MAKING - ED course Complexity details: reviewed results, re-evaluated patient, considered differential, d/w patient ED course: I discussed with the patient that we can get an x-ray of the knee, though I doubt it will show anything acute as the patient has not had any identifiable trauma. The patient states that she would really like some oxycodone for the pain and I have advised her that we will not be giving her oxycodone for atraumatic or chronic pain. I have given the patient a shot of Toradol here in the ED. X-ray was negative, and I have discussed with the patient that she will need to follow-up with her primary care physician for further concerns in regard to pain management. I have offered the patient a walker, but she states that she already has a cane and she cannot use a walker in her place of residence, due to the corners and tight spaces. Patient has ambulated through the emergency department, seemingly without difficulty, though she has called for a wheelchair. Discussed to the usual indications for return Departure - Departure Disposition: 01 Home, Self Care Clinical Impression: Knee pain, right Qualifiers: Chronicity: acute Qualified Code(s): M25.561 - Pain in right knee Condition: Stable Instructions: ED Knee Pain UKO Comments: Your x-ray shows some mild swelling of the soft tissues of your knee, but otherwise no abnormalities. This indicates some inflammation, perhaps caused by walking around at [employer] after not having done much physical activity recently. There is no evidence of acute injury otherwise you may continue to take your home pain medication. If you need more than this to manage the pain, you will need to talk to Dr. Whittaker, as the situation does not qualify for oxycodone. You may use the walker to help take some of the pressure off of your knee, as you do seem to be able to move the knee quite well when you are not bearing weight. Discharge Date/Time: 01/06/20 01:05
[2020-01-06 01:15] VITALS: BP 138/81
--- NOTE | 2020-01-06 08:36 | XRAY Report ---
PROCEDURE: Knee 3 View RT INDICATIONS: R knee pain TECHNIQUE: 3 views of the right knee(s) were acquired. COMPARISON: None. FINDINGS: Bones: No fractures or dislocations. No suspicious bony lesions. Soft tissues: No joint effusion. No suspicious soft tissue calcifications. IMPRESSION: No fracture. No osseous lesion. If there is continued clinical concern for pathology, then repeat berta in film radiographs (7-10 days) or advanced imaging (CT, MR, bone scan) should be considered for furt her evaluation. Reviewed by: Radha Richardson MD, PhD on 01/06/2020 8:35 AM PDT Approved by: Radha Richardson MD, PhD on 01/06/2020 8:35 AM PDT Station ID: [id number]
== END 2020-01-06 01:05 | disposition home or self-care (01) ==
LOC: ED 22:49
DX: M25.561 Pain in right knee (principal); F17.200 Nicotine dependence, unspecified, uncomplicated
CPT/HCPCS: 96372; 99282; 99284

== ENCOUNTER 2020-04-19 07:00 | Outpatient (CLI) | payer MEDICARE, OTHER | END 2020-04-19 23:59 | disposition home or self-care (01) | LOC: LAB.R 07:00 | PROVIDERS: ATTEND Family Medicine | DX: N39.0 Urinary tract infection, site not specified (principal) | CPT/HCPCS: 87086 ==

== ENCOUNTER 2020-05-04 16:05 | Outpatient (CLI) | payer MEDICARE, OTHER | END 2020-05-04 23:59 | disposition home or self-care (01) | LOC: LAB.R 16:05 | PROVIDERS: ATTEND Nurse Practitioner | DX: N39.0 Urinary tract infection, site not specified (principal) | CPT/HCPCS: 87086 ==

== ENCOUNTER 2020-11-15 18:34 | Outpatient (CLI) | payer MEDICARE, OTHER | END 2020-11-15 18:35 | disposition short-term general hospital (02) | LOC: EMS 18:34 | DX: R10.10 Upper abdominal pain, unspecified (principal) | CPT/HCPCS: A0425; A0429 ==

== ENCOUNTER 2020-11-17 15:33 | Outpatient (CLI) | payer MEDICARE | END 2020-11-17 15:34 | disposition short-term general hospital (02) | LOC: EMS 15:33 | DX: M25.552 Pain in left hip (principal) | CPT/HCPCS: A0425; A0429 ==

== ENCOUNTER 2020-12-03 09:23 | Outpatient (CLI) | payer MEDICARE | END 2020-12-03 09:24 | disposition critical access hospital (66) | LOC: EMS 09:23 | DX: R10.9 Unspecified abdominal pain (principal); G89.29 Other chronic pain; K12.0 Recurrent oral aphthae | CPT/HCPCS: A0425; A0427 ==

== ENCOUNTER 2020-12-03 09:39 | Emergency (ER) | payer MEDICARE ==
--- NOTE | 2020-12-03 11:10 | ED Physician Documentation ---
PD HPI ABD PAIN - Stated complaint Stated Complaint: ABD PX - Chief complaint Chief Complaint: Abd Pain - History obtained from History obtained from: Patient - History of Present Illness Timing - onset: Chronic Timing - duration: Years Pain level max: 9 Pain level now: 9 Quality: Other (burning) Location: Suprapubic Associated symptoms: No: Fever, Nausea, Vomiting, Hematemesis, Diarrhea, Constipation, Melena, Hematochezia, Dysuria - Additional information Additional information: Patient is a 70-year-old female with chronic abdominal pain and chronic pelvic pain. She states the pelvic pain is increasing today. She states that she "does not know what to do". This been ongoing for several years. She has seen her primary care doctor her touch up painter and a urologist. Has never seen a medical receptionist. The pain is worse with movement and palpation. Denies any vaginal bleeding, discharge or itching. She was seen at [facility] recently for constipation. No fevers. No chills. No nausea or vomiting. 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 : Incontinence, Frequency HEENT: None Psych: Anxiety Musculoskeletal: Fibromyalgia, Chronic back pain Derm: None - Past Surgical History Past Surgical History: Yes General: Bowel surgery, Colonoscopy, 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 HEENT: Tonsil/Adenoidectomy - Present Medications Home Medications: Ambulatory Orders Medication Instructions Recorded Confirmed Propranolol [Inderal] 10 mg ORAL BID 03/04/16 05/15/17 Metformin HCl 500 mg PO BID #20 tablet 04/20/19 amLODIPine [Norvasc] 10 mg PO 04/23/19 Naproxen 375 mg PO BID #20 tablet 06/21/19 Ondansetron Odt [Zofran] 4 mg TL Q6H PRN #10 tablet 06/21/19 Gabapentin [Neurontin] 300 mg PO TID #90 12/03/20 Hycosamine 0.125 mg Q4H PRN 12/03/20 Omeprazole 20 mg DAILY 12/03/20 12/03/20 Oxycodone HCl/Acetaminophen 1 tab PO Q8H PRN #12 tablet 12/03/20 [Percocet 10-325 mg Tablet] - Allergies Allergies/Adverse Reactions: Allergies Allergy/AdvReac Type Severity Reaction Status Date / Time amoxicillin trihydrate * Allergy Intermediate Emesis, Verified 12/03/20 09:47 [From Augmentin] nausea erythromycin base Allergy Intermediate Emesis, Verified 12/03/20 09:47 [Erythromycin Base] nausea morphine Allergy Intermediate Hallucinati Verified 12/03/20 09:47 ons potassium clavulanate * Allergy Intermediate Emesis, Verified 12/03/20 09:47 [From Augmentin] nausea Sulfa (Sulfonamide Allergy Nausea Verified 12/03/20 09:47 Antibiotics) iodine AdvReac Severe Hives Verified 12/03/20 09:47 ciprofloxacin [From Cipro] AdvReac Nausea Verified 12/03/20 09:47 - Social History Does the pt smoke?: Yes Smoking Status: Current every day smoker Does the pt drink ETOH?: No Does the pt have substance abuse?: No - Immunizations Immunizations are current?: Yes - POLST Patient has POLST: No PD ED PE NORMAL - Vitals Vital signs reviewed: Yes - General General: Alert and oriented X 3, No acute distress - HEENT HEENT: Moist mucous membranes - Neck Neck: Supple, no meningeal sign - Cardiac Cardiac: RRR - Respiratory Respiratory: No respiratory distress, Clear bilaterally - Abdomen Abdomen: Soft, Non tender, Non distended - Female Female : Pt declined - Derm Derm: Warm and dry - Extremities Extremities: No edema - Neuro Neuro: Alert and oriented X 3 - Psych Psych: Normal mood, Normal affect Results - Vitals Vitals: Vital Signs - 24 hr 12/03/20 12/03/20 12/03/20 09:44 12:57 13:49 Temperature 36.8 C 36.9 C 36.8 C Heart Rate 96 92 98 Respiratory 16 20 16 Rate Blood Pressure 180/84 H 162/84 H 148/79 H O2 Saturation 96 95 96 Oxygen O2 Source Room air - EKG (time done) 1051 Rate: Rate (enter#) (80) [place]: Normal Intervals: Normal NE QRS: Normal Ischemia: Non specific changes - Labs Labs: Laboratory Tests 12/03/20 12/03/20 12/03/20 10:26 11:14 11:14 WBC 7.7 RBC 4.41 Hgb 13.7 Hct 42.4 MCV 96.1 MCH 31.1 H MCHC 32.3 RDW 14.6 Plt Count 225 MPV 9.1 Neut # (Auto) 5.7 Lymph # (Auto) 1.3 L [place] # (Auto) 0.5 Eos # (Auto) 0.1 Baso # (Auto) 0.0 Absolute Nucleated RBC 0.00 Nucleated RBC % 0.0 Sodium 135 Potassium 4.0 Chloride 100 L Carbon Dioxide 27 Anion Gap 8.0 BUN 12 Creatinine 0.5 Estimated GFR (MDRD) 123 Glucose 154 H Calcium 9.7 Total Bilirubin 0.9 AST 25 ALT 30 Alkaline Phosphatase 65 Total Protein 8.0 Albumin 4.1 Globulin 3.9 Albumin/Globulin Ratio 1.1 Lipase 18 L Urine Color YELLOW Urine Clarity CLEAR Urine pH 6.5 Ur Specific [place] 1.020 Urine Protein TRACE Urine Glucose (UA) NEGATIVE Urine Ketones NEGATIVE Urine Occult Blood TRACE-INTA Urine Nitrite NEGATIVE Urine Bilirubin NEGATIVE Urine Urobilinogen 0.2 (NORMAL) Ur Leukocyte Esterase NEGATIVE Ur Microscopic Review NOT INDICATED Urine Culture Comments NOT INDICATED PD MEDICAL DECISION MAKING - ED course Complexity details: reviewed results, re-evaluated patient, considered differential, d/w patient ED course: Pain did not change much with B&O suppository. Her pain did improve with a dose of oral oxycodone and 300 of gabapentin. Will increase her gabapentin from 100 mg 3 times daily to 300 mg 3 times daily. Will prescribe a small amount of pain medication for home. This is chronic pain and does not require any additional work-up at this time. She states she has not seen a medical receptionist and this may be worthwhile to see if they can identify a cause of her chronic pelvic pain. Patient counseled regarding signs and symptoms for which I believe and urgent re-evaluation would be necessary. Patient with good understanding of and agreement to plan and is comfortable going home at this time This document was made in part using voice recognition software. While efforts are made to proofread this document, sound alike and grammatical errors may occur. I am prescribing a short course of short-acting opioid pain medication for this patient. I have reviewed the patients FARMWORKER BULBS and no concerning findings were noted. I have discussed that the opioids are for short term therapy only, and will not be refilled from the ED. Departure - Departure Disposition: 01 Home, Self Care Clinical Impression: Pelvic pain Condition: Good Instructions: ED Pelvic Pain [facility]O Follow-Up: Rodrigo Whittaker MD [Primary Care Provider] - Within 1 week [facility] [Provider Group] Prescriptions: Gabapentin [Neurontin] 300 mg PO TID #90 Oxycodone HCl/Acetaminophen [Percocet 10-325 mg Tablet] 1 tab PO Q8H PRN #12 tablet PRN Reason: Abdominal Pain Comments: We will increase her gabapentin from 100 mg 3 times a day to 300 mg 3 times a day. Your doctor may need to increase this further to 600 mg 3 times a day. Please follow-up with your doctor for further care. You should also have an evaluation by gynecology for your chronic pelvic pain. I am prescribing a short course of narcotic pain medication for you. These are potentially dangerous and addictive medications that should be used carefully. These medications may constipate you. Take an bnrm-sqy-znaruit stool softener (docusate) twice daily with plenty of water while taking these medications. If you go 24 hours without a bowel movement, take [id number]-ikl-[id number] miralax, per package instructions. Do not drink or drive while taking these medications. If you received narcotic or sedating medications while in the emergency department, do not drive for 24 hours. Store this medication in a safe, secure place and out of reach of children. It is a violation of federal law to give or sell this medication to another person or to use in a manner other than prescribed. The ED will not refill narcotic prescriptions, including prescriptions lost or stolen. To dispose of unwanted medications: 1. [facility] at [address] in [place] has a medication drop box. They accept prescription medications (in pill form) Monday through Monday 9:00 a.m. to 5:00 p.m. 2. The [facility] [employer] accepts prescription medications (in pill form only) for disposal year round. Call for more information. 3. Contact the [facility] for the next [facility] sponsored prescription drug collection event. , [phone], or [phone];
[2020-12-03 11:18] LABS: BILIRUBIN,URINE NEGATIVE (NEGATIVE); GLUCOSE, URINE (UA) NEGATIVE (NEGATIVE); KETONES,URINE (UA) NEGATIVE (NEGATIVE); LEUKOCYTE ESTERASE, URINE NEGATIVE (NEGATIVE); NITRITE,URINE NEGATIVE (NEGATIVE); OCCULT BLOOD,URINE TRACE-INTA (NEGATIVE); PH,URINE 6.5 PH (5.0-7.5); PROTEIN,URINE TRACE mg/dL (NEGATIVE); UROBILINOGEN,URINE 0.2 (NORMAL) E.U./dL (NORMAL)
[2020-12-03 11:21] LABS: CLARITY,URINE CLEAR (CLEAR)
[2020-12-03 11:26] LABS: BASOPHILS % (AUTO) 0.3 %; EOSINOPHILS # (AUTO) 0.1 10^3/uL (0.0-0.7); EOSINOPHILS % (AUTO) 1.4 %; HCT - HEMATOCRIT 42.4 % (37.0-47.0); HGB - HEMOGLOBIN 13.7 g/dL (12.0-16.0); LYMPHOCYTES # (AUTO) 1.3 10^3/uL (1.5-3.5); LYMPHOCYTES % (AUTO) 17.3 %; MEAN CORPUSCULAR HEMOGLOBIN 31.1 pg (27.0-31.0); MEAN CORPUSCULAR HGB CONC 32.3 g/dL (32.0-36.0); MEAN CORPUSCULAR VOLUME 96.1 fL (81.0-99.0); MEAN PLATELET VOLUME 9.1 fL (7.9-10.8); MONOCYTES # (AUTO) 0.5 10^3/uL (0.0-1.0); MONOCYTES % (AUTO) 6.1 %; NEUTROPHILS # (AUTO) 5.7 10^3/uL (1.5-6.6); NEUTROPHILS % (AUTO) 74.4 %; PLT - PLATELET COUNT 225 10^3/uL (130-450); RED BLOOD COUNT 4.41 10^6/uL (4.20-5.40); RED CELL DISTRIBUTION WIDTH 14.6 % (12.0-15.0); WHITE BLOOD COUNT 7.7 x10^3/uL (4.8-10.8)
[2020-12-03 11:40] LABS: ALBUMIN 4.1 g/dL (3.2-5.5); ALBUMIN/GLOBULIN RATIO 1.1 (1.0-2.2); BILIRUBIN,TOTAL 0.9 mg/dL (0.2-1.0); CALCIUM 9.7 mg/dL (8.5-10.3); CREATININE 0.5 mg/dL (0.4-1.0)
[2020-12-03] MEDS ORDERED: OPIUM/BELLADONNA 60/16.2MG SUPPOSITORY PR STA (11:54)
[2020-12-03] MEDS ORDERED: GABAPENTIN 100 MG CAPSULE PO STA (13:10)
[2020-12-03] MEDS ORDERED: oxyCODONE 5 MG TABLET PO STA (13:10)
[2020-12-03 13:49] VITALS: BP 148/79
== END 2020-12-03 13:57 | disposition home or self-care (01) ==
LOC: EDUNIT# → ED 09:39
DX: R10.2 Pelvic and perineal pain (principal); I10 Essential (primary) hypertension; F17.200 Nicotine dependence, unspecified, uncomplicated
CPT/HCPCS: 36415; 80053; 81003; 83690; 85025; 99283; 99284; A9270; 81001; 87086

== ENCOUNTER 2020-12-23 10:11 | Outpatient (CLI) | payer MEDICARE | END 2020-12-23 10:12 | disposition critical access hospital (66) | LOC: EMS 10:11 | DX: R10.30 Lower abdominal pain, unspecified (principal); R19.7 Diarrhea, unspecified; R14.0 Abdominal distension (gaseous) | CPT/HCPCS: A0425; A0429 ==

== ENCOUNTER 2020-12-23 10:28 | Emergency (ER) | payer MEDICARE ==
[2020-12-23] MEDS ORDERED: ALPRAZolam 0.25 MG TABLET PO STA (11:03)
[2020-12-23] MEDS ORDERED: SODIUM CHLORIDE 0.9% 1,000 ML IV STA (11:03)
[2020-12-23] MEDS ORDERED: KETOROLAC 30 MG/ML VIAL IVP STA (11:03)
--- NOTE | 2020-12-23 11:04 | ED Physician Documentation ---
PD HPI ABD PAIN - Stated complaint Stated Complaint: ABD PX/DIARRHEA - Chief complaint Chief Complaint: Abd Pain - History obtained from History obtained from: Patient - Additional information Additional information: 62-year-old woman with chronic abdominal pain presents with pelvic pain, sensation of distention, and multiple episodes of watery diarrhea since yesterday. It started after visiting the dentist office where she got sweaty and then overnight developed more sweats and diarrhea with pelvic cramping. No measured fevers. She has a history of 2 C-sections and a partial colectomy. She has a remote history of C. difficile. No recent antibiotic use. Review of Systems Ten Systems: 10 systems reviewed and negative Constitutional: reports: Chills, Sweats. 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 HEENT: Tonsil/Adenoidectomy - Present Medications Home Medications: Ambulatory Orders Medication Instructions Recorded Confirmed Propranolol [Inderal] 10 mg ORAL BID 03/04/16 05/15/17 Metformin HCl 500 mg PO BID #20 tablet 04/20/19 amLODIPine [Norvasc] 10 mg PO 04/23/19 Naproxen 375 mg PO BID #20 tablet 06/21/19 Ondansetron Odt [Zofran] 4 mg TL Q6H PRN #10 tablet 06/21/19 Gabapentin [Neurontin] 300 mg PO TID #90 12/03/20 Hycosamine 0.125 mg Q4H PRN 12/03/20 Omeprazole 20 mg DAILY 12/03/20 12/03/20 Oxycodone HCl/Acetaminophen 1 tab PO Q8H PRN #12 tablet 12/03/20 [Percocet 10-325 mg Tablet] Nystatin [Mycostatin] 10 ml 5XD 12/23/20 12/23/20 - Allergies Allergies/Adverse Reactions: Allergies Allergy/AdvReac Type Severity Reaction Status Date / Time amoxicillin trihydrate * Allergy Intermediate Emesis, Verified 12/23/20 10:38 [From Augmentin] nausea erythromycin base Allergy Intermediate Emesis, Verified 12/23/20 10:38 [Erythromycin Base] nausea morphine Allergy Intermediate Hallucinati Verified 12/23/20 10:38 ons potassium clavulanate * Allergy Intermediate Emesis, Verified 12/23/20 10:38 [From Augmentin] nausea Sulfa (Sulfonamide Allergy Nausea Verified 12/23/20 10:38 Antibiotics) iodine AdvReac Severe Hives Verified 12/23/20 10:38 ciprofloxacin [From Cipro] AdvReac Nausea Verified 12/23/20 10:38 - Social History Does the pt smoke?: Yes Smoking Status: Current every day smoker Does the pt drink ETOH?: No Does the pt have substance abuse?: No - Immunizations Immunizations are current?: Yes - POLST Patient has POLST: No PD ED PE NORMAL - Vitals Vital signs reviewed: Yes - General General: Alert and oriented X 3, No acute distress - Abdomen Abdomen: Other (Slightly hyperactive bowel tones, no tenderness.) - Neuro Neuro: Alert and oriented X 3, Normal speech Results - Vitals Vitals: Vital Signs - 24 hr 12/23/20 12/23/20 12/23/20 10:28 12:36 12:44 Temperature 36.5 C 36.5 C Heart Rate 102 H 78 74 Respiratory 16 16 14 Rate Blood Pressure 182/94 H 123/77 130/74 O2 Saturation 97 100 100 Oxygen O2 Source Room air - Labs Labs: Laboratory Tests 12/23/20 12/23/20 11:11 11:11 WBC 10.0 RBC 4.59 Hgb 14.3 Hct 44.0 MCV 95.9 MCH 31.2 H MCHC 32.5 RDW 13.8 Plt Count 281 MPV 8.8 Neut # (Auto) 7.5 H Lymph # (Auto) 1.7 [place] # (Auto) 0.6 Eos # (Auto) 0.1 Baso # (Auto) 0.0 Absolute Nucleated RBC 0.00 Nucleated RBC % 0.0 Sodium 133 L Potassium 3.8 Chloride 97 L Carbon Dioxide 25 Anion Gap 11.0 BUN 9 Creatinine 0.7 Estimated GFR (MDRD) 83 L Glucose 160 H Calcium 9.8 Total Bilirubin 0.6 AST 25 ALT 26 Alkaline Phosphatase 74 Total Protein 9.3 H Albumin 4.5 Globulin 4.8 H Albumin/Globulin Ratio 0.9 L Lipase 21 L PD MEDICAL DECISION MAKING - ED course ED course: 70-year-old woman presents with what seems like actually probably an exacerbation of chronic abdominal pain. She has chronic diarrhea but it is worse today. She has remote history of C. difficile and recommended we check for same but patient was unable to produce a stool sample here. She was fairly aggressive about asking for narcotics and single dose of Dilaudid was ordered. No prescription for narcotics noting that she is on chronic benzodiazepines per [facility] guidelines. Departure - Departure Disposition: 01 Home, Self Care Clinical Impression: Lower abdominal pain Diarrhea Qualifiers: Diarrhea type: unspecified type Qualified Code(s): R19.7 - Diarrhea, unspecified Condition: Good Record reviewed to determine appropriate education?: Yes Instructions: ED Abdominal Pain Unkn Cause Comments: Call your doctor to arrange a follow-up appointment, make the next available appointment. In the interim, return anytime if worse or if new symptoms develop. Discharge Date/Time: 12/23/20 12:45
[2020-12-23 11:17] LABS: BASOPHILS % (AUTO) 0.3 %; EOSINOPHILS # (AUTO) 0.1 10^3/uL (0.0-0.7); EOSINOPHILS % (AUTO) 0.7 %; HGB - HEMOGLOBIN 14.3 g/dL (12.0-16.0); LYMPHOCYTES # (AUTO) 1.7 10^3/uL (1.5-3.5); LYMPHOCYTES % (AUTO) 17.2 %; MEAN CORPUSCULAR HEMOGLOBIN 31.2 pg (27.0-31.0); MEAN CORPUSCULAR HGB CONC 32.5 g/dL (32.0-36.0); MEAN CORPUSCULAR VOLUME 95.9 fL (81.0-99.0); MEAN PLATELET VOLUME 8.8 fL (7.9-10.8); MONOCYTES # (AUTO) 0.6 10^3/uL (0.0-1.0); MONOCYTES % (AUTO) 6.1 %; NEUTROPHILS # (AUTO) 7.5 10^3/uL (1.5-6.6); NEUTROPHILS % (AUTO) 75.3 %; PLT - PLATELET COUNT 281 10^3/uL (130-450); RED BLOOD COUNT 4.59 10^6/uL (4.20-5.40); RED CELL DISTRIBUTION WIDTH 13.8 % (12.0-15.0)
[2020-12-23 11:33] LABS: ALBUMIN 4.5 g/dL (3.2-5.5); ALBUMIN/GLOBULIN RATIO 0.9 (1.0-2.2); BILIRUBIN,TOTAL 0.6 mg/dL (0.2-1.0); CALCIUM 9.8 mg/dL (8.5-10.3); CREATININE 0.7 mg/dL (0.4-1.0); POTASSIUM 3.8 mmol/L (3.5-5.0); TOTAL PROTEIN 9.3 g/dL (6.7-8.2)
[2020-12-23] MEDS ORDERED: HYDROmorphone 2 MG TABLET PO STA (12:15)
[2020-12-23 12:45] VITALS: BP 130/74
== END 2020-12-23 12:45 | disposition home or self-care (01) ==
LOC: EDUNIT# → ED 10:28
DX: R10.30 Lower abdominal pain, unspecified (principal); G89.29 Other chronic pain; R19.7 Diarrhea, unspecified; Z87.19 Personal history of other diseases of the digestive system; Z90.49 Acquired absence of other specified parts of digestive tract; I10 Essential (primary) hypertension; F17.200 Nicotine dependence, unspecified, uncomplicated
CPT/HCPCS: 36415; 80053; 83690; 85025; 99283; A9270

== ENCOUNTER 2020-12-24 09:13 | Outpatient (CLI) | payer MEDICARE | END 2020-12-24 09:14 | disposition critical access hospital (66) | LOC: EMS 09:13 | DX: R10.31 Right lower quadrant pain (principal); R10.32 Left lower quadrant pain; R11.0 Nausea; R19.7 Diarrhea, unspecified | CPT/HCPCS: A0425; A0429 ==

== ENCOUNTER 2020-12-24 09:37 | Emergency (ER) | payer MEDICARE ==
[2020-12-24] MEDS ORDERED: HYDROmorphone 2 MG TABLET PO STA ×2 (09:41→10:20)
--- NOTE | 2020-12-24 09:43 | ED Physician Documentation ---
PD HPI ABD PAIN - Stated complaint Stated Complaint: ABD PX/DIARRHEA - Chief complaint Chief Complaint: Abd Pain - History obtained from History obtained from: Patient - Additional information Additional information: 70-year-old woman with chronic abdominal pain presents with an exacerbation of same. Seen yesterday. Lower abdominal pain with associated nausea and diarrhea. Was feeling better yesterday after oral Dilaudid. Was unable to produce a stool sample here. Pain got worse again around 8 PM last night. Throbbing left lower quadrant pain. She is very anxious about the possibility of perforation as she has had that before. No fevers. Review of Systems Ten Systems: 10 systems reviewed and negative Constitutional: denies: Fever, Chills GI: reports: Abdominal Pain, Nausea, Diarrhea. denies: Bloody / black stool PD PAST MEDICAL HISTORY - Past Medical History Cardiovascular: Hypertension, High cholesterol Respiratory: None Neuro: None Endocrine/Autoimmune: None GI: Chronic diarrhea, Other MACHINE ROUGH ROUNDER: None : Incontinence, Frequency HEENT: None Psych: Anxiety Musculoskeletal: Fibromyalgia, Chronic back pain Derm: None - Past Surgical History Past Surgical History: Yes General: Bowel surgery, Colonoscopy, EGD /MACHINE ROUGH ROUNDER: section HEENT: Tonsil/Adenoidectomy - Present Medications Home Medications: Ambulatory Orders Medication Instructions Recorded Confirmed Propranolol [Inderal] 10 mg ORAL BID 03/04/16 05/15/17 Metformin HCl 500 mg PO BID #20 tablet 04/20/19 amLODIPine [Norvasc] 10 mg PO 04/23/19 Naproxen 375 mg PO BID #20 tablet 06/21/19 Ondansetron Odt [Zofran] 4 mg TL Q6H PRN #10 tablet 06/21/19 Gabapentin [Neurontin] 300 mg PO TID #90 12/03/20 Hycosamine 0.125 mg Q4H PRN 12/03/20 Omeprazole 20 mg DAILY 12/03/20 12/03/20 Oxycodone HCl/Acetaminophen 1 tab PO Q8H PRN #12 tablet 12/03/20 [Percocet 10-325 mg Tablet] Nystatin [Mycostatin] 10 ml 5XD 12/23/20 12/23/20 Ketorolac [Toradol] 10 mg PO Q6H PRN #14 tablet 12/24/20 - Allergies Allergies/Adverse Reactions: Allergies Allergy/AdvReac Type Severity Reaction Status Date / Time amoxicillin trihydrate * Allergy Intermediate Emesis, Verified 12/24/20 09:39 [From Augmentin] nausea erythromycin base Allergy Intermediate Emesis, Verified 12/24/20 09:39 [Erythromycin Base] nausea morphine Allergy Intermediate Hallucinati Verified 12/24/20 09:39 ons potassium clavulanate * Allergy Intermediate Emesis, Verified 12/24/20 09:39 [From Augmentin] nausea Sulfa (Sulfonamide Allergy Nausea Verified 12/24/20 09:39 Antibiotics) iodine AdvReac Severe Hives Verified 12/24/20 09:39 ciprofloxacin [From Cipro] AdvReac Nausea Verified 12/24/20 09:39 - Social History Does the pt smoke?: Yes Smoking Status: Current every day smoker Does the pt drink ETOH?: No Does the pt have substance abuse?: No - Immunizations Immunizations are current?: Yes - POLST Patient has POLST: No PD ED PE NORMAL - Vitals Vital signs reviewed: Yes - General General: Alert and oriented X 3, No acute distress - HEENT HEENT: PERRL, EOMI - Neck Neck: Supple, no meningeal sign, No bony TTP - Cardiac Cardiac: RRR, No murmur - Respiratory Respiratory: No respiratory distress, Clear bilaterally - Abdomen Abdomen: Normal bowel sounds, Soft, Other (Mild lower abdominal tenderness without surgical signs, no diffuse abdominal tenderness.) - Back Back: No CVA TTP, No spinal TTP - Derm Derm: Normal color, Warm and dry - Extremities Extremities: No edema, No calf tenderness / cord - Neuro Neuro: Alert and oriented X 3, Normal speech Results - Vitals Vitals: Vital Signs - 24 hr 12/24/20 12/24/20 09:36 11:35 Temperature 36.2 C L 36.1 C L Heart Rate 110 H 99 Respiratory 18 18 Rate Blood Pressure 148/93 H 127/72 O2 Saturation 97 97 Oxygen O2 Source Room air - Labs Labs: Laboratory Tests 12/24/20 12/24/20 12/24/20 09:49 09:49 09:59 WBC 8.4 RBC 4.58 Hgb 14.4 Hct 44.2 MCV 96.5 MCH 31.4 H MCHC 32.6 RDW 13.9 Plt Count 276 MPV 9.3 Neut # (Auto) 6.4 Lymph # (Auto) 1.3 L [place] # (Auto) 0.5 Eos # (Auto) 0.1 Baso # (Auto) 0.0 Absolute Nucleated RBC 0.00 Nucleated RBC % 0.0 Sodium 137 Potassium 3.9 Chloride 100 L Carbon Dioxide 27 Anion Gap 10.0 BUN 7 Creatinine 0.7 Estimated GFR (MDRD) 83 L Glucose 162 H Calcium 9.8 Total Bilirubin 0.6 AST 20 ALT 23 Alkaline Phosphatase 67 Total Protein 8.7 H Albumin 4.5 Globulin 4.2 Albumin/Globulin Ratio 1.1 Lipase 23 Stl C. diff Tox B Gene NEGATIVE - Rads (name of study) CT the abdomen pelvis done without contrast is showing no acute disease, she has diverticulosis and postsurgical changes. Radiology: EMP read contemporaneously PD MEDICAL DECISION MAKING - ED course ED course: 70-year-old woman presents with an exacerbation of chronic abdominal pain. Her affect vacillates from happiness to crying about her pain quickly. She is frustrated by the lack of clear diagnosis. She has a specific worry about perforation although clinically this is unlikely based on exam but a CT was done without evidence of free air or other acute abnormality. Labs are unremarkable. Departure - Departure Disposition: 01 Home, Self Care Clinical Impression: Chronic abdominal pain Abdominal pain Qualifiers: Abdominal location: lower abdomen, unspecified Qualified Code(s): R10.30 - Lower abdominal pain, unspecified Condition: Good Record reviewed to determine appropriate education?: Yes Instructions: ED Abdominal Pain Unkn Cause Prescriptions: Ketorolac [Toradol] 10 mg PO Q6H PRN #14 tablet PRN Reason: Pain Comments: C. difficile test and stool culture are pending. We will call you if positive. Toradol prescription sent electronically to [facility]. Follow-up with your primary care physician regarding treatment for ongoing/chronic abdominal pain. Return if worsening. Discharge Date/Time: 12/24/20 12:02
[2020-12-24] MEDS ORDERED: IOPAMIDOL-300 100 ML VIAL ONE (09:48)
[2020-12-24 09:59] LABS: BASOPHILS % (AUTO) 0.5 %; EOSINOPHILS # (AUTO) 0.1 10^3/uL (0.0-0.7); EOSINOPHILS % (AUTO) 0.9 %; HCT - HEMATOCRIT 44.2 % (37.0-47.0); HGB - HEMOGLOBIN 14.4 g/dL (12.0-16.0); LYMPHOCYTES # (AUTO) 1.3 10^3/uL (1.5-3.5); LYMPHOCYTES % (AUTO) 15.5 %; MEAN CORPUSCULAR HEMOGLOBIN 31.4 pg (27.0-31.0); MEAN CORPUSCULAR HGB CONC 32.6 g/dL (32.0-36.0); MEAN CORPUSCULAR VOLUME 96.5 fL (81.0-99.0); MEAN PLATELET VOLUME 9.3 fL (7.9-10.8); MONOCYTES # (AUTO) 0.5 10^3/uL (0.0-1.0); MONOCYTES % (AUTO) 6.4 %; NEUTROPHILS # (AUTO) 6.4 10^3/uL (1.5-6.6); NEUTROPHILS % (AUTO) 76.3 %; PLT - PLATELET COUNT 276 10^3/uL (130-450); RED BLOOD COUNT 4.58 10^6/uL (4.20-5.40); RED CELL DISTRIBUTION WIDTH 13.9 % (12.0-15.0); WHITE BLOOD COUNT 8.4 x10^3/uL (4.8-10.8)
[2020-12-24 10:10] LABS: ALBUMIN 4.5 g/dL (3.2-5.5); ALBUMIN/GLOBULIN RATIO 1.1 (1.0-2.2); BILIRUBIN,TOTAL 0.6 mg/dL (0.2-1.0); CALCIUM 9.8 mg/dL (8.5-10.3); CREATININE 0.7 mg/dL (0.4-1.0); POTASSIUM 3.9 mmol/L (3.5-5.0); TOTAL PROTEIN 8.7 g/dL (6.7-8.2)
--- NOTE | 2020-12-24 10:47 | CT Report ---
PROCEDURE: Abdomen/Pelvis WO INDICATIONS: low abd pain TECHNIQUE: Noncontrast 5 mm thick sections acquired from the diaphragms to the symphysis. 5 mm coronal and sagi ttal reformats were then performed. For radiation dose reduction, the following was used: automated exposure control, adjustment of mA and/or kV according to patient size. COMPARISON: CT abdomen and pelvis without contrast, 02/06/2018. FINDINGS: Image quality: Excellent. ABDOMEN: Lung bases: Right middle lobe scars and atelectasis. Heart size is normal. Small hiatal hernia. Solid organs: Liver and spleen are normal in size. Gallbladder is normal. Pancreas is normal in co ntours. No adrenal nodules. Kidneys are normal in size, without hydronephrosis or nephrolithiasis. Peritoneum and bowel: Unenhanced bowel loops demonstrate normal wall thickness and caliber. There a re multiple colonic diverticula. No CT findings to suggest acute diverticulitis. There are surgical c hanges in the right lower quadrant. No free fluid or air. Nodes and vessels: No retroperitoneal or mesenteric adenopathy by size criteria. Aorta and inferior vena cava are normal in caliber. Miscellaneous: No ventral hernias. PELVIS: Genitourinary: Bladder wall thickness is normal. Uterus is normal. Ovaries are not well seen. No ad nexal mass. A pathological free fluid in the cul-de-sac. Miscellaneous: No inguinal hernias or adenopathy. Bones: No suspicious bony lesions. No vertebral body compression fractures. IMPRESSION: 1. No acute traumatic E CT abdomen pelvis. 2. Diverticulosis without acute diverticulitis. 3. Post surgical changes in the right lower quadrant. 4. No renal stone or hydronephrosis. Reviewed by: Kade Garcia MD on 12/24/2020 10:46 AM PDT Approved by: Kade Garcia MD on 12/24/2020 10:46 AM PDT Station ID: [id number]
[2020-12-24] MEDS ORDERED: KETOROLAC 10 MG TABLET PO STA (11:00)
[2020-12-24] MEDS ORDERED: ALPRAZolam 0.25 MG TABLET PO STA (11:00)
[2020-12-24 11:37] VITALS: BP 127/72
== END 2020-12-24 12:02 | disposition home or self-care (01) ==
LOC: EDBD → ED 09:37
DX: G89.29 Other chronic pain (principal); R10.30 Lower abdominal pain, unspecified; I10 Essential (primary) hypertension; F17.200 Nicotine dependence, unspecified, uncomplicated
CPT/HCPCS: 36415; 74176; 80053; 81599; 83690; 85025; 87493; 99284; A9270; 87045; 87046; 87427; 87449

== ENCOUNTER 2020-12-24 17:09 | Emergency (ER) | payer MEDICARE ==
[2020-12-24 18:33] VITALS: BP 113/60
--- NOTE | 2020-12-24 21:37 | ED Physician Documentation ---
PD HPI ABD PAIN - Stated complaint Stated Complaint: ABD PX/DIARRHEA/NAUSEA - Chief complaint Chief Complaint: Abd Pain - History obtained from History obtained from: Patient - Additional information Additional information: Gait [id number] woman returns to the emergency department for the third time in 36 hours for an exacerbation of chronic abdominal pain. Had a thorough work- up on the last visit including CT scan imaging without pertinent positive findings. In the interim went to see her doctor, Dr. Cruz who called me prior to patient's arrival and agrees that the patient shows some concern for drug-seeking behavior and asks us not to, especially with narcotics. Pain is in the lower abdomen, throbbing, associated with diarrhea, nonbloody. Review of Systems Constitutional: denies: Fever, Chills Nose: reports: Reviewed and negative Cardiac: reports: Reviewed and negative Respiratory: reports: Reviewed and negative PD PAST MEDICAL HISTORY - Past Medical History Past Medical History: Yes Cardiovascular: Hypertension, High cholesterol Respiratory: None Neuro: None Endocrine/Autoimmune: None GI: Chronic diarrhea, Other PROMOTIONAL MARKETING AGENT: None : Incontinence, Frequency HEENT: None Psych: Anxiety Musculoskeletal: Fibromyalgia, Chronic back pain Derm: None - Past Surgical History Past Surgical History: Yes General: Bowel surgery, Colonoscopy, EGD /PROMOTIONAL MARKETING AGENT: section HEENT: Tonsil/Adenoidectomy - Present Medications Home Medications: Ambulatory Orders Medication Instructions Recorded Confirmed Propranolol [Inderal] 10 mg ORAL BID 03/04/16 05/15/17 Metformin HCl 500 mg PO BID #20 tablet 04/20/19 amLODIPine [Norvasc] 10 mg PO 04/23/19 Naproxen 375 mg PO BID #20 tablet 06/21/19 Ondansetron Odt [Zofran] 4 mg TL Q6H PRN #10 tablet 06/21/19 Gabapentin [Neurontin] 300 mg PO TID #90 12/03/20 Hycosamine 0.125 mg Q4H PRN 12/03/20 Omeprazole 20 mg DAILY 12/03/20 12/03/20 Oxycodone HCl/Acetaminophen 1 tab PO Q8H PRN #12 tablet 12/03/20 [Percocet 10-325 mg Tablet] Nystatin [Mycostatin] 10 ml 5XD 12/23/20 12/23/20 Ketorolac [Toradol] 10 mg PO Q6H PRN #14 tablet 12/24/20 - Allergies Allergies/Adverse Reactions: Allergies Allergy/AdvReac Type Severity Reaction Status Date / Time amoxicillin trihydrate * Allergy Intermediate Emesis, Verified 12/24/20 09:39 [From Augmentin] nausea erythromycin base Allergy Intermediate Emesis, Verified 12/24/20 09:39 [Erythromycin Base] nausea morphine Allergy Intermediate Hallucinati Verified 12/24/20 09:39 ons potassium clavulanate * Allergy Intermediate Emesis, Verified 12/24/20 09:39 [From Augmentin] nausea Sulfa (Sulfonamide Allergy Nausea Verified 12/24/20 09:39 Antibiotics) iodine AdvReac Severe Hives Verified 12/24/20 09:39 ciprofloxacin [From Cipro] AdvReac Nausea Verified 12/24/20 09:39 - Social History Does the pt smoke?: Yes Smoking Status: Current every day smoker Does the pt drink ETOH?: No Does the pt have substance abuse?: No - Immunizations Immunizations are current?: Yes - POLST Patient has POLST: No PD ED PE NORMAL - Vitals Vital signs reviewed: Yes - General General: Alert and oriented X 3, No acute distress - Abdomen Abdomen: Soft, Non tender - Neuro Neuro: Alert and oriented X 3, Normal speech Results - Vitals Vitals: Vital Signs - 24 hr 12/24/20 12/24/20 17:16 18:31 Temperature 37.3 C 37.0 C Heart Rate 96 90 Respiratory 16 18 Rate Blood Pressure 111/58 L 113/60 O2 Saturation 123 H 100 Oxygen O2 Source Room air PD MEDICAL DECISION MAKING - ED course ED course: 62-year-old woman represents for the third time for nonspecific and basically chronic abdominal pain with multiple negative prior work-ups including earlier today requesting for pain management. Her physician had called ahead and asked us not to prescribe or dispense narcotics and this request was heeded. Departure - Departure Disposition: 01 Home, Self Care Clinical Impression: Chronic abdominal pain Condition: Good Record reviewed to determine appropriate education?: Yes Instructions: ED Abdominal Pain Unkn Cause Comments: As discussed, your chronic abdominal pain needs to be managed by your primary care physicians and specialists. Discharge Date/Time: 12/24/20 18:32
== END 2020-12-24 18:32 | disposition home or self-care (01) ==
LOC: ED 17:09
DX: G89.29 Other chronic pain (principal); R10.9 Unspecified abdominal pain; I10 Essential (primary) hypertension; F17.200 Nicotine dependence, unspecified, uncomplicated

== ENCOUNTER 2021-01-03 11:10 | Outpatient (CLI) | payer MEDICARE | END 2021-01-03 11:11 | disposition critical access hospital (66) | LOC: EMS 11:10 | DX: R10.30 Lower abdominal pain, unspecified (principal) | CPT/HCPCS: A0425; A0429 ==

== ENCOUNTER 2021-01-03 11:25 | Emergency (ER) | payer MEDICARE ==
--- NOTE | 2021-01-03 12:13 | ED Physician Documentation ---
PD HPI ABD PAIN - Stated complaint Stated Complaint: ABD PX - Chief complaint Chief Complaint: Abd Pain - History obtained from History obtained from: Patient, EMS - History of Present Illness Timing - onset: Today, Last night (has worsened over her baseline chronic level.), Chronic Timing - details: Gradual onset, Still present Quality: Cramping, Aching, Pain Location: Suprapubic, LLQ Radiation: No: Left flank, Right flank Associated symptoms: Nausea. No: Fever, Vomiting, Diarrhea, Constipation, Dysuria Similar symptoms before: No diagnosis (chronic lower abd pain without clear Dx. Has seen GI, Urology. Pending appt with FIRE EQUIPMENT INSPECTOR HELPER and getting referral 2nd GI from PMD.) Recently seen: Emergency Dept (10 days ago for similar, with 3 visits in 2 days. third visit notes state that we were not to give opiates in ER nor Rx.) Review of Systems Constitutional: denies: Fever, Chills Nose: denies: Rhinorrhea / runny nose, Congestion Throat: denies: Sore throat Respiratory: denies: Cough GI: reports: Abdominal Pain, Nausea. 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: None : Incontinence, Frequency HEENT: None Psych: Anxiety Musculoskeletal: Fibromyalgia, Chronic back pain Derm: None - Past Surgical History Past Surgical History: Yes General: Bowel surgery, Colonoscopy, EGD /FIRE EQUIPMENT INSPECTOR HELPER: section HEENT: Tonsil/Adenoidectomy - Present Medications Home Medications: Ambulatory Orders Medication Instructions Recorded Confirmed Propranolol [Inderal] 10 mg ORAL BID 03/04/16 01/03/21 Metformin HCl 500 mg PO BID #20 tablet 04/20/19 01/03/21 amLODIPine [Norvasc] 10 mg PO DAILY 04/23/19 01/03/21 Naproxen 375 mg PO BID #20 tablet 06/21/19 01/03/21 Ondansetron Odt [Zofran] 4 mg TL Q6H PRN #10 tablet 06/21/19 01/03/21 Gabapentin [Neurontin] 300 mg PO TID #90 12/03/20 01/03/21 Hycosamine 0.125 mg PO Q4H PRN 12/03/20 01/03/21 Omeprazole 20 mg PO DAILY 12/03/20 01/03/21 Oxycodone HCl/Acetaminophen 1 tab PO Q8H PRN #12 tablet 12/03/20 01/03/21 [Percocet 10-325 mg Tablet] Nystatin [Mycostatin] 10 ml PO 5XD 12/23/20 01/03/21 Ketorolac [Toradol] 10 mg PO Q6H PRN #14 tablet 12/24/20 01/03/21 Acetaminophen [Acetaminophen Extra 500 mg PO QID #40 tablet 01/03/21 Strength] Phenazopyridine HCl [Pyridium] 100 mg PO BID #14 tablet 01/03/21 cephALEXin [Keflex] 500 mg PO TID #20 cap 01/03/21 - Allergies Allergies/Adverse Reactions: Allergies Allergy/AdvReac Type Severity Reaction Status Date / Time amoxicillin trihydrate * Allergy Intermediate Emesis, Verified 01/03/21 11:33 [From Augmentin] nausea erythromycin base Allergy Intermediate Emesis, Verified 01/03/21 11:33 [Erythromycin Base] nausea morphine Allergy Intermediate Hallucinati Verified 01/03/21 11:33 ons potassium clavulanate * Allergy Intermediate Emesis, Verified 01/03/21 11:33 [From Augmentin] nausea Sulfa (Sulfonamide Allergy Nausea Verified 01/03/21 11:33 Antibiotics) iodine AdvReac Severe Hives Verified 01/03/21 11:33 ciprofloxacin [From Cipro] AdvReac Nausea Verified 01/03/21 11:33 - Social History Does the pt smoke?: Yes Smoking Status: Current every day smoker Does the pt drink ETOH?: No Does the pt have substance abuse?: No - Immunizations Immunizations are current?: Yes - POLST Patient has POLST: No PD ED PE NORMAL - Vitals Vital signs reviewed: Yes - General General: Alert and oriented X 3, Well developed/nourished, Other (appears very anxious and also states in severe pain, holding lower abd. ) - Neck Neck: Supple, no meningeal sign, No adenopathy - Cardiac Cardiac: RRR, No murmur - Respiratory Respiratory: Clear bilaterally - Abdomen Abdomen: Soft, Non distended, No organomegaly, Other (tender lower left abd. Hyperactive bowel sounds. ). No: Normal bowel sounds (hyperactive. ) - Female Female : Deferred - Rectal Rectal: Deferred - Back Back: No CVA TTP - Derm Derm: Normal color, Warm and dry - Neuro Neuro: Alert and oriented X 3, No motor deficit, Normal speech - Psych Psych: No: Normal affect (very anxious) Results - Vitals Vitals: Vital Signs - 24 hr 01/03/21 01/03/21 13:40 15:00 Heart Rate 85 100 Respiratory 16 18 Rate Blood Pressure 155/79 H 194/90 H O2 Saturation 97 99 Oxygen O2 Source Room air - Labs Labs: Microbiology 01/03/21 12:10 Urine Culture - Preliminary Urine,Random Laboratory Tests 01/03/21 01/03/21 01/03/21 12:10 12:25 12:25 WBC 7.7 RBC 4.61 Hgb 14.6 Hct 43.8 MCV 95.0 MCH 31.7 H MCHC 33.3 RDW 13.4 Plt Count 271 MPV 8.6 Neut # (Auto) 5.8 Lymph # (Auto) 1.3 L [place] # (Auto) 0.5 Eos # (Auto) 0.1 Baso # (Auto) 0.0 Absolute Nucleated RBC 0.00 Nucleated RBC % 0.0 Sodium 137 Potassium 3.6 Chloride 97 L Carbon Dioxide 31 Anion Gap 9.0 BUN 6 Creatinine 0.5 Estimated GFR (MDRD) 123 Glucose 138 H Calcium 9.5 Total Bilirubin 0.5 AST 28 ALT 30 Alkaline Phosphatase 63 Total Protein 8.0 Albumin 4.3 Globulin 3.7 Albumin/Globulin Ratio 1.2 Lipase 21 L Urine Color YELLOW Urine Clarity HAZY Urine pH 7.0 Ur Specific Roland 1.015 Urine Protein TRACE Urine Glucose (UA) NEGATIVE Urine Ketones 40 H Urine Occult Blood NEGATIVE Urine Nitrite POSITIVE H Urine Bilirubin NEGATIVE Urine Urobilinogen 0.2 (NORMAL) Ur Leukocyte Esterase NEGATIVE Urine RBC None Seen Urine WBC 6-10 H Ur Squamous Epith Cells FEW Squamous Urine Bacteria Moderate H Ur Microscopic Review INDICATED Urine Culture Comments INDICATED PD MEDICAL DECISION MAKING - ED course Complexity details: reviewed old records, reviewed results (has UTI as well, so that could be adding to her chronic pain. ), re-evaluated patient (good effect on pain, nausea and anxiety with meds. The ketamine dose was of the anxious/mood dose of 0.4 mg/kg over 30 minutes. Hope is some sustained effect for even days/week or so.), considered differential (chronic abd pain with anxiety. Reference to last visit suggested no further opiates in ER nor Rx. I talked with patient about this so she got to hear it again. She is anxious and having pain and nausea so I thought dual effect of anxiolytic and antiemetic/pain would be good. Gave Inapsine/ketamine.), d/w patient Departure - Departure Disposition: 01 Home, Self Care Clinical Impression: Chronic abdominal pain UTI (urinary tract infection) Qualifiers: Urinary tract infection type: acute cystitis Hematuria presence: without hematuria Qualified Code(s): N30.00 - Acute cystitis without hematuria Condition: Stable Record reviewed to determine appropriate education?: Yes Instructions: ED Abdominal Pain Unkn Cause, ED UTI Cystitis Female Follow-Up: Katie Cruz MD [Primary Care Provider] - Prescriptions: Acetaminophen [Acetaminophen Extra Strength] 500 mg PO QID #40 tablet cephALEXin [Keflex] 500 mg PO TID #20 cap Phenazopyridine HCl [Pyridium] 100 mg PO BID #14 tablet Comments: Your urine test does show signs of infection. We will treat this with cephalexin antibiotic 3 times a day for 6 days. We could also help urinary symptoms with phenazopyridine twice daily for the next week as well. Tylenol 500 mg 4 times a day for pain. Continue your other usual medicines. Follow-up with your primary care regarding ongoing chronic abdominal pain. I transmitted your prescriptions to [facility] in [place]. Discharge Date/Time: 01/03/21 15:13
[2021-01-03 12:19] LABS: BILIRUBIN,URINE NEGATIVE (NEGATIVE); GLUCOSE, URINE (UA) NEGATIVE (NEGATIVE); KETONES,URINE (UA) 40 mg/dL (NEGATIVE); LEUKOCYTE ESTERASE, URINE NEGATIVE (NEGATIVE); NITRITE,URINE POSITIVE (NEGATIVE); OCCULT BLOOD,URINE NEGATIVE (NEGATIVE); PROTEIN,URINE TRACE mg/dL (NEGATIVE); UROBILINOGEN,URINE 0.2 (NORMAL) E.U./dL (NORMAL)
[2021-01-03 12:20] LABS: CLARITY,URINE HAZY (CLEAR)
[2021-01-03 12:27] LABS: BACTERIA,URINE Moderate /HPF (None Seen); RBC,URINE None Seen /HPF (0-5); SQUAMOUS EPITHELIAL CELL,UR FEW Squamous (<= Few)
[2021-01-03 12:33] LABS: BASOPHILS % (AUTO) 0.5 %; EOSINOPHILS # (AUTO) 0.1 10^3/uL (0.0-0.7); HCT - HEMATOCRIT 43.8 % (37.0-47.0); HGB - HEMOGLOBIN 14.6 g/dL (12.0-16.0); LYMPHOCYTES # (AUTO) 1.3 10^3/uL (1.5-3.5); LYMPHOCYTES % (AUTO) 16.5 %; MEAN CORPUSCULAR HEMOGLOBIN 31.7 pg (27.0-31.0); MEAN CORPUSCULAR HGB CONC 33.3 g/dL (32.0-36.0); MEAN PLATELET VOLUME 8.6 fL (7.9-10.8); MONOCYTES # (AUTO) 0.5 10^3/uL (0.0-1.0); MONOCYTES % (AUTO) 6.6 %; NEUTROPHILS # (AUTO) 5.8 10^3/uL (1.5-6.6); NEUTROPHILS % (AUTO) 74.8 %; PLT - PLATELET COUNT 271 10^3/uL (130-450); RED BLOOD COUNT 4.61 10^6/uL (4.20-5.40); RED CELL DISTRIBUTION WIDTH 13.4 % (12.0-15.0); WHITE BLOOD COUNT 7.7 x10^3/uL (4.8-10.8)
[2021-01-03 12:46] LABS: ALBUMIN 4.3 g/dL (3.2-5.5); ALBUMIN/GLOBULIN RATIO 1.2 (1.0-2.2); BILIRUBIN,TOTAL 0.5 mg/dL (0.2-1.0); CALCIUM 9.5 mg/dL (8.5-10.3); CREATININE 0.5 mg/dL (0.4-1.0); POTASSIUM 3.6 mmol/L (3.5-5.0)
[2021-01-03] MEDS ORDERED: KETOROLAC 15 MG/ML VIAL IVP STA (12:46)
[2021-01-03] MEDS ORDERED: SODIUM CHLORIDE 0.9% 1,000 ML IV STA (12:46)
[2021-01-03] MEDS ORDERED: DROPERIDOL 5 MG/2 ML VIAL IVP STA (12:46)
[2021-01-03] MEDS ORDERED: KETAMINE 25 MG in SODIUM CHLORIDE 0.9% 100ML 100 ML IV STA (12:47)
[2021-01-03] MEDS ORDERED: cefTRIAXone 1 GM VIAL IVP STA (13:43)
[2021-01-03 15:07] VITALS: BP 194/90
== END 2021-01-03 15:13 | disposition home or self-care (01) ==
LOC: EDUNIT# → ED 11:25
DX: N30.00 Acute cystitis without hematuria (principal); R10.9 Unspecified abdominal pain; G89.29 Other chronic pain; F41.9 Anxiety disorder, unspecified; R11.0 Nausea; F17.200 Nicotine dependence, unspecified, uncomplicated; I10 Essential (primary) hypertension
CPT/HCPCS: 36415; 80053; 81001; 81003; 83690; 85025; 87077; 87086; 87181; 96365; 96375; 99284

== ENCOUNTER 2021-07-05 18:24 | Outpatient (CLI) | payer MEDICARE | END 2021-07-05 18:25 | disposition critical access hospital (66) | LOC: EMS 18:24 | DX: R10.2 Pelvic and perineal pain (principal) | CPT/HCPCS: A0425; A0429 ==

== ENCOUNTER 2021-07-05 18:42 | Emergency (ER) | payer MEDICARE ==
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
[2021-07-05] MEDS ORDERED: oxyCODONE 5 MG TABLET PO STA (19:54)
[2021-07-05 20:07] VITALS: BP 130/76
== END 2021-07-05 20:08 | disposition home or self-care (01) ==
LOC: EDUNIT# → ED 18:42
DX: T24.192A Burn of first degree of multiple sites of left lower limb, except ankle and foot, initial encounter (principal); T21.17XA Burn of first degree of female genital region, initial encounter; X16.XXXA Contact with hot heating appliances, radiators and pipes, initial encounter; F43.9 Reaction to severe stress, unspecified; I10 Essential (primary) hypertension; F17.200 Nicotine dependence, unspecified, uncomplicated
CPT/HCPCS: 99282; 99283; A9270

== ENCOUNTER 2022-07-02 18:47 | Emergency (ER) | payer MEDICARE ==
[2022-07-02] MEDS ORDERED: DEXAMETHASONE 10 MG/ML VIAL PO STA (19:58)
[2022-07-02] MEDS ORDERED: hydrOXYzine PAMOATE 25 MG CAPSULE PO STA (19:59)
[2022-07-02] MEDS ORDERED: CHERRY SYRUP 10 ML UDC PO ONE (19:59)
--- NOTE | 2022-07-02 20:04 | ED Physician Documentation ---
History of Present Illness - Stated complaint Stated Complaint: RASH - Chief complaint Chief Complaint: Wound - Additonal information Additional information: 72-year-old female presents to the emergency department for evaluation of a pruritic rash that began about 6 months ago on her chest. It is papular and sometimes scabbing. She did see her primary care provider who recommended hydrocortisone and Benadryl. The patient has been applying Goldbond. But the itch is worsening thus she presents to the ER. She is unsure when she will be able to see dermatology. Review of Systems Constitutional: denies: Fever Nose: reports: Reviewed and negative Throat: reports: Reviewed and negative GI: reports: Reviewed and negative : reports: Reviewed and negative Skin: reports: Rash PD PAST MEDICAL HISTORY - Past Medical History Cardiovascular: Hypertension, High cholesterol Respiratory: None Neuro: None Endocrine/Autoimmune: None GI: Chronic diarrhea, Other PUBLIC HEALTH DIRECTOR: None : Incontinence, Frequency HEENT: None Psych: Anxiety Musculoskeletal: Fibromyalgia, Chronic back pain Derm: None - Past Surgical History Past Surgical History: Yes General: Bowel surgery, Colonoscopy, EGD /PUBLIC HEALTH DIRECTOR: section HEENT: Tonsil/Adenoidectomy - Present Medications Home Medications: Ambulatory Orders Medication Instructions Recorded Confirmed Propranolol [Inderal] 10 mg ORAL BID 03/04/16 07/05/21 Metformin HCl 500 mg PO BID #20 tablet 04/20/19 07/05/21 amLODIPine [Norvasc] 10 mg PO DAILY 04/23/19 07/05/21 Hycosamine 0.125 mg PO Q4H PRN 12/03/20 07/05/21 Citalopram [CeleXA] 20 mg PO DAILY 07/05/21 07/05/21 Doxepin HCl [Prudoxin] 2 gm TP BID #45 gm 07/05/21 Doxepin [SINEquan] 25 mg PO QPM #20 cap 07/05/21 Permethrin 5% Cream [Permethrin 60 gm TP ONCE #60 gm 07/02/22 Cream] hydrOXYzine pamoate [Vistaril] 25 mg PO BID PRN #20 cap 07/02/22 - Allergies Allergies/Adverse Reactions: Allergies Allergy/AdvReac Type Severity Reaction Status Date / Time amoxicillin trihydrate * Allergy Intermediate Emesis, Verified 07/02/22 19:26 [From Augmentin] nausea erythromycin base Allergy Intermediate Emesis, Verified 07/02/22 19:26 [Erythromycin Base] nausea morphine Allergy Intermediate Hallucinati Verified 07/02/22 19:26 ons potassium clavulanate * Allergy Intermediate Emesis, Verified 07/02/22 19:26 [From Augmentin] nausea Sulfa (Sulfonamide Allergy Nausea Verified 07/02/22 19:26 Antibiotics) iodine AdvReac Severe Hives Verified 07/02/22 19:26 ciprofloxacin [From Cipro] AdvReac Nausea Verified 07/02/22 19:26 - Social History Does the pt smoke?: Yes Smoking Status: Current every day smoker Does the pt drink ETOH?: No Does the pt have substance abuse?: No - Immunizations Immunizations are current?: Yes - POLST Patient has POLST: No PD ED PE EXPANDED - General General: Alert, No acute distress - Derm Derm: Rash (Pruritic, papular and scabbing rash on torso wrist back and legs. ) Results - Vitals Vitals: Vital Signs - 24 hr 07/02/22 19:19 Temperature 36.8 C Heart Rate 95 Respiratory 18 Rate Blood Pressure 142/72 H O2 Saturation 96 Oxygen O2 Source Room air PD Medical Decision Making - ED course Complexity details: d/w patient ED course: 72-year-old female presents emergency department for evaluation of worsening pruritic rash that began about 6 months ago. She is finding no relief of the itch with Benadryl. She is been applying Goldbond ointment which is not helpful. She has not yet applied the hydrocortisone as prescribed by her primary care doctor. On exam of the rash though it is not intertriginous, given the intense pruritus as well as some of the scabbing and linear lesions I am somewhat concerned this could be scabies as such I will make the recommendation for use with permethrin. She may also find benefit from use with Vistaril instead of Benadryl and she can continue the hydrocortisone ointment. Otherwise she should follow closely with PCP. Clinically this is not consistent with a cellulitis. It does not have the typical appearance of eczema or folliculitis. Departure - Departure Disposition: 01 Home, Self Care Clinical Impression: Rash and nonspecific skin eruption Condition: Stable Record reviewed to determine appropriate education?: Yes Instructions: ED Scabies Prescriptions: Permethrin 5% Cream [Permethrin Cream] 60 gm TP ONCE #60 gm hydrOXYzine pamoate [Vistaril] 25 mg PO BID PRN #20 cap PRN Reason: Itching Comments: Berta the appearance of your rash as well as the intense itching makes me suspicious for scabies. Please fill the permethrin cream and apply it to your entire body. Leave in place for 12 to 16 hours. During that time you should wash 100% of your bedding and clothing in very hot water. If this is scabies I would expect the rash and itching to be getting better over the next week or so if not improving you can reapply the permethrin one-time. Instead of applying the Goldbond I would also apply the hydrocortisone to your rash. I have prescribed Vistaril medication that is often more effective at controlling itch. Do not take the Benadryl if taking Vistaril. Continue to follow closely with your primary care doctor as well as dermatology to which you have been referred.
[2022-07-02 20:28] VITALS: BP 138/71
== END 2022-07-02 20:29 | disposition home or self-care (01) ==
LOC: ED 18:47
DX: R21 Rash and other nonspecific skin eruption (principal); I10 Essential (primary) hypertension; F17.200 Nicotine dependence, unspecified, uncomplicated
CPT/HCPCS: 99282; 99283; A9270